=== PATIENT | male | born 1980 | race Caucasian/White ===

== ENCOUNTER 2017-03-07 08:09 | Emergency (ER) | payer OTHER ==
[~2017-03-07] VITALS: Ht 177.8 cm; Wt 77.1 kg
[~2017-03-07 08:09] MED LIST: BENADRYL25 MG PO; BENZONATATE200 M1 PO; CARAFATE1 G1 PO; CARAFATE1 GM/10 M1 PO; CARAFATE1 GM/10 ML PO; LEVSIN0.125 M1 PO; MEDROL4 M2 PO; PERCOCET 5-3251 EACH PO; PHENERGAN12.5 M2 RC; PRILOSEC20 M1 PO; PROMETHAZINE HC25 M3 PO; PROTONIX 40MG T40 MG PO; PROTONIX40 M3 PO; REGLAN10 M1 PO; TRAMADOL HCL50 M1 PO; TRAMADOL50 MG PO; VENTOLIN HFA18 GM INH; ZOFRAN ODT4 M1 PO; ZOFRAN ODT4 MG PO
--- NOTE | 2017-03-07 08:37 | ED GI/GU/ABDOMINAL COMPLAINT ---
History of Present Illness General Chief Complaint: Abdominal Pain/Flank Pain Stated Complaint: ABD PAIN,PER PT DIVERTICULITIS? Source: patient Exam Limitations: no limitations Vital Signs & Intake/Output Vital Signs & Intake/Output Vital Signs Date Time Temp Pulse Resp B/P B/P Pulse O2 O2 Flow FiO2 Mean Ox Delivery Rate 03/07 1156 98.8 72 16 110/59 96 Room Air 03/07 1025 97.0 82 20 109/63 97 Room Air 03/07 0814 96.8 73 18 126/78 99 Room Air Allergies Coded Allergies: codeine (Intermediate, RASH 12/27/15) venom-honey bee (BEE VENOM (HONEY BEE)) (Intermediate, SITE WHERE STUNG SWELLS 05/05/16) Reconcile Medications Albuterol Sulfate (Ventolin Hfa) 90 MCG HFA.AER.AD 2 PUF INH Q4-6 PRN PRN WHEEZING/SHORTNESS OF BREATH Benzonatate 200 MG CAPSULE 1 CAP PO TID PRN cough Hyoscyamine (Levsin) 0.125 MG TABLET 1 TAB PO Q4 PRN abdominal spasms Methylprednisolone. (Medrol) 4 MG TAB.DS.PK 1 DP PO AD breathing Metoclopramide HCl (Reglan) 10 MG TABLET 1 TAB PO 4 TIMES/DAY N/V (Reported) 30 minutes before meals and bedtime Omeprazole (Prilosec) 20 MG CAPSULE.DR 1 CAP PO DAILY GASTRITIS Ondansetron (Zofran Odt) 4 MG TAB.RAPDIS 2 TAB PO Q12H PRN N/V (Reported) Oxycodone HCl/Acetaminophen (Percocet 5-325 MG Tablet) 5 MG-325 MG TABLET 1 TAB PO TID PRN PAIN Promethazine HCl 25 MG TABLET 1 TAB PO Q6P PRN nausea Triage Note: 36 YO MALE TO TRIAGE C/O LLQ PAIN. STATES HASNT BEEN ABLE TO EAT SOLID FOOD SINCE SATURDAY D/T PAIN AND NAUSEA. STATES +NVD. HX OF GASTROPARESIS AND DIVERTICULITIS. Triage Nurses Notes Reviewed? yes Onset: Gradual Duration: day(s): (6) Timing: recent history Quality/Severity: sharpness, severe, vomiting Severity Numbers: 10 Location: left lower quadrant Radiation: no radiation Activities at Onset: none Prior Abdominal Problems: similar symptoms Past Sexual History: Unobtainable at this time No Modifying Factors: none HPI: Patient is a 36-year-old male with history of diverticulitis, gastroparesis presenting to the emergency department with chief complaint worsening left lower quadrant abdominal pain, nausea vomiting and diarrhea that been going on and off for the past 6 days. Patient reports several episodes of diarrhea yesterday, several episodes of dry heaving vasculitides worse this morning. Denies any blood in the stool or vomit. Positive tactile fevers and chills. No recent travel. Denies recent antibiotic use. Denies chest pain palpitations or shortness of breath. Reports that he sees a rac specialist but has not seen him in a while. Does not take anything daily to help with his gastroparesis, reports he needs to come to the emergency department when he has exacerbations. He does smoke 1-2 g of marijuana daily. Has been doing this for "a while". Pain is currently 10 out of 10 sharp and stabbing. Denies taking anything for pain prior to arrival as he didn't have anything at home to take. Past History Travel History Traveled to [place] past 21 day No Medical History Any Pertinent Medical History? 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 Hx Contributory? No Review of Systems Review of Systems Constitutional: Reports: chills, fever. Comments Review of systems: See HPI, All other systems negative. Constitutional, no weight loss HEENT: No visual changes no sore throat no congestion Cardiovascular: No chest pain ,palpitation , orthopnea or ankle swelling Skin, no jaundice no rashes Respiratory: No dyspnea cough sputum or hemoptysis GI: Positive nausea, vomiting, diarrhea : No dysuria No hematuria Muscle skeletal: no back pain, no neck pain, Neurologic: No numbness no confusion Psych: POS STRESS, DENIES CONFUSION Heme/endocrine: No bruising no bleeding no polyuria or polydipsia Immunology: No splenectomy or history of AIDS Physical Exam Physical Exam General Appearance: moderate distress Gastrointestinal: guarding, tenderness Comments: Well-developed well-nourished person in moderate distress HEENT: Pupils equally round and reactive to light and accommodation. Nose is atraumatic. External auditory canal and Tympanic membranes clear. Pharynx normal. No swelling or edema. Neck: Normal inspection Back: Nontender, no CVA tenderness. Full range of motion Cardiovascular: Regular rate and rhythms no murmurs rubs or gallops, normal JVP Respiratory: Chest nontender. No respiratory distress.breath sounds clear to auscultation bilaterally Abdomen: Soft, diffusely tender to palpation more focal tenderness to palpation in the left lower quadrant , positive guarding, no appreciable organomegaly. Normal bowel sounds. No ascites Extremity: No edema Neuro: Alert oriented x3 Skin: No appreciable rash on exposed skin, skin is warm and diaphoretic. Psych: Anxious, memory and judgment is normal. Core Measures ACS in differential dx? No Severe Sepsis Present: No Septic Shock Present: No Progress Differential Diagnosis: appendicitis, biliary colic, bowel obstruction, cholecystitis, diverticulitis, gastritis, pancreatitis, UTI/pyelo, DIVERTICULTIIS, PERF VISCOUS Plan of Care: Orders Procedure Date/time Status Add-on Test (ER Only) 03/07 0900 Active URINE DRUG SCREEN FOR ER ONLY 03/07 0845 Complete URINALYSIS 03/07 0845 Complete LIPASE 03/07 0845 Complete LACTIC ACID 03/07 0845 Complete COMPREHENSIVE METABOLIC PANEL 03/07 0845 Complete CBC WITHOUT DIFFERENTIAL 03/07 0845 Complete Laboratory Tests 03/07/17 1145: Lactic Acid Cancelled 03/07/17 1041: Urine Opiates Screen < 100.00, Methadone Screen < 40, Barbiturate Screen < 60, Ur Phencyclidine Scrn < 6.00, Amphetamines Screen < 100, U Benzodiazepines Scrn < 85, Urine Cocaine Screen < 50, Urine Cannabis Screen > 80.00 H, Urinalysis MANY H, Urine Color YEL, Urine Clarity CLDY H, Urine pH 8.5 H, Ur Specific [place] 1.010, Urine Protein 30 H, Urine Ketones 40 H, Urine Nitrite NEG, Urine Bilirubin NEG, Urine Urobilinogen 1.0, Ur Leukocyte Esterase NEG, Ur Microscopic SEDIMENT EXAMINED, Urine RBC RARE, Urine WBC RARE, Ur Epithelial Cells RARE, Urine Bacteria RARE H, Urine Hemoglobin NEG, Urine Glucose NEG 03/07/17 0903: Anion Gap 16, Estimated GFR > 60, BUN/Creatinine Ratio 17.5, Glucose 108 H, Lactic Acid 1.7, Calcium 10.2, Total Bilirubin 0.9, AST 23, ALT 28, Alkaline Phosphatase 120, Total Protein 7.6, Albumin 4.9, Globulin 2.7, Albumin/Globulin Ratio 1.8, Lipase 81, CBC w Diff MAN DIFF ORDERED, RBC 5.41, MCV 85.1, MCH 28.8, RDW 13.5, MPV 8.8, Gran % 78.6 H, Lymphocytes % 14.2 L, Monocytes % 4.2, Eosinophils % 2.0, Basophils % 1.0, Absolute Granulocytes 15.9 H, Absolute Lymphocytes 2.9, Absolute Monocytes 0.8 H, Absolute Eosinophils 0.4, Absolute Basophils 0.2, Normocytic RBCs VERIFIED, Normochromic RBCs VERIFIED, PUBS MCHC 33.8 Diagnostic Imaging: Viewed by Me: CT Scan. Discussed w/RAD: CT Scan. Radiology Impression: PATIENT: REJI OLVERA PRESENT AGE: 36 PATIENT ACCOUNT NO: [id number] : 82 LOCATION: [facility] ORDERING PHYSICIAN: WESLEY GUZMAN SERVICE DATE: 03/07/17 EXAM TYPE: CAT - CT ABD & PELVIS W IV CONTRAST EXAMINATION: CT ABDOMEN AND PELVIS WITH CONTRAST CLINICAL INFORMATION: Abdominal pain. Nausea. Vomiting. Rule out diverticulitis or viscus perforation. COMPARISON: CT abdomen and pelvis of 05/05, 01/24/2016. Limited abdominal ultrasound of 12/27/2015. TECHNIQUE: Multidetector volumetric imaging was performed of the abdomen and pelvis before and after the IV administration of 95 mL of Optiray 320 intravenous contrast. Sagittal and coronal reformatted images were obtained on the technologist's workstation. DLP: 275.36 mGy-cm FINDINGS: LUNG BASES: The visualized lung bases are unremarkable. LIVER, GALLBLADDER, AND BILIARY TREE: The liver is normal in size, shape, and attenuation. No focal hepatic lesion or biliary ductal dilatation is present. The gallbladder is unremarkable with no evidence of radiopaque gallstones, gallbladder wall thickening, or obvious pericholecystic inflammatory changes. PANCREAS: Unremarkable. SPLEEN: Unremarkable. ADRENAL GLANDS: Normal left adrenal gland. A 1.5 x 0.8 cm indeterminate right adrenal nodule is stable since previous CT of 01/24/2016. KIDNEYS AND URETERS: The kidneys are normal in size, shape, and attenuation. No hydronephrosis, hydroureter, or calculi seen. No perinephric stranding. BLADDER: Unremarkable. GASTROINTESTINAL TRACT: The stomach is partially distended and appears unremarkable. Small bowel loops are not dilated. An appendix is normal. Diffuse mild diverticulosis of the colon is noted without definite evidence of acute diverticulitis. PERITONEAL CAVITY: No evidence of free intraperitoneal air or fluid. No evidence of inflammatory changes or nodularity in the omentum and mesentery. ABDOMINAL WALL: No significant hernia is appreciated. LYMPH NODES: No pathologically enlarged lymph nodes are noted. VASCULAR: Unremarkable. PELVIC VISCERA: Unremarkable. OSSEOUS STRUCTURES: Unremarkable. IMPRESSION: 1. There is no evidence of free intraperitoneal air. 2. Diffuse diverticulosis of the colon without acute diverticulitis. 3. No acute or other significant abnormalities identified on the CT scan to explain patient's symptoms. 4. A 1.5 x 0.8 cm indeterminate right adrenal nodule is stable since previous CT of 01/24/2016. Dedicated adrenal gland CT may be considered for further evaluation. DICTATED BY : DWAYNE HEBERT MD DATE/TIME DICTATED:03/07/171058 MUD JACK NOZZLE WORKER:LORAINE DATE/TIME TRANSCRIBED:03/07/171058 CONFIDENTIAL, DO NOT COPY WITHOUT APPROPRIATE AUTHORIZATION. <Electronically signed in Other Vendor System> SIGNED BY: DWAYNE HEBERT MD 03/07/17 1154 Initial ED EKG: none Comments: Patient feeling much improved after IV fluids, Reglan and Ativan. No longer vomiting. Requesting fluids. Patient informed of all lab work results and imaging study results. Elevated white blood count is likely related to dry heaving. He'll follow up with GI. Patient nontoxic. Departure Departure Time of Disposition: 1158 Disposition: HOME OR SELF CARE Condition: Stable Clinical Impression Primary Impression: Abdominal pain Qualifiers: Abdominal location: unspecified location Qualified Code: R10.9 - Unspecified abdominal pain Secondary Impressions: Nausea and vomiting Qualifiers: Vomiting type: unspecified Vomiting Intractability: unspecified Qualified Code: R11.2 - Nausea with vomiting, unspecified Referrals: ANNAMARIA DALY,VALERY Lee (PCP/Family) JOSSY WHITT MD Additional Instructions: Follow-up with gastroenterology following a plan. Attaches her CAT scan report. Return for worsening symptoms or concerns. Take Levsin and Reglan as prescribed. PATIENT: REJI OLVERA PRESENT AGE: 36 PATIENT ACCOUNT NO: [id number] : 82 LOCATION: [facility] ORDERING PHYSICIAN: WESLEY GUZMAN SERVICE DATE: 03/07/17 EXAM TYPE: CAT - CT ABD & PELVIS W IV CONTRAST EXAMINATION: CT ABDOMEN AND PELVIS WITH CONTRAST CLINICAL INFORMATION: Abdominal pain. Nausea. Vomiting. Rule out diverticulitis or viscus perforation. COMPARISON: CT abdomen and pelvis of 05/05/2016, 01/24/2016. Limited abdominal ultrasound of 12/27/2015. TECHNIQUE: Multidetector volumetric imaging was performed of the abdomen and pelvis before and after the IV administration of 95 mL of Optiray 320 intravenous contrast. Sagittal and coronal reformatted images were obtained on the technologist's workstation. DLP: 275.36 mGy-cm FINDINGS: LUNG BASES: The visualized lung bases are unremarkable. LIVER, GALLBLADDER, AND BILIARY TREE: The liver is normal in size, shape, and attenuation. No focal hepatic lesion or biliary ductal dilatation is present. The gallbladder is unremarkable with no evidence of radiopaque gallstones, gallbladder wall thickening, or obvious pericholecystic inflammatory changes. PANCREAS: Unremarkable. SPLEEN: Unremarkable. ADRENAL GLANDS: Normal left adrenal gland. A 1.5 x 0.8 cm indeterminate right adrenal nodule is stable since previous CT of 01/24/2016. KIDNEYS AND URETERS: The kidneys are normal in size, shape, and attenuation. No hydronephrosis, hydroureter, or calculi seen. No perinephric stranding. BLADDER: Unremarkable. GASTROINTESTINAL TRACT: The stomach is partially distended and appears unremarkable. Small bowel loops are not dilated. An appendix is normal. Diffuse mild diverticulosis of the colon is noted without definite evidence of acute diverticulitis. PERITONEAL CAVITY: No evidence of free intraperitoneal air or fluid. No evidence of inflammatory changes or nodularity in the omentum and mesentery. ABDOMINAL WALL: No significant hernia is appreciated. LYMPH NODES: No pathologically enlarged lymph nodes are noted. VASCULAR: Unremarkable. PELVIC VISCERA: Unremarkable. OSSEOUS STRUCTURES: Unremarkable. IMPRESSION: 1. There is no evidence of free intraperitoneal air. 2. Diffuse diverticulosis of the colon without acute diverticulitis. 3. No acute or other significant abnormalities identified on the CT scan to explain patient's symptoms. 4. A 1.5 x 0.8 cm indeterminate right adrenal nodule is stable since previous CT of 01/24/2016. Dedicated adrenal gland CT may be considered for further evaluation. DICTATED BY: DWAYNE HEBERT MD DATE/TIME DICTATED:03/07/171058 MUD JACK NOZZLE WORKER:LORAINE DATE/TIME TRANSCRIBED:03/07/171058 CONFIDENTIAL, DO NOT COPY WITHOUT APPROPRIATE AUTHORIZATION. <Electronically signed in Other Vendor System> SIGNED BY: EMILEE TIWARI,ANAL 03/07/17 3443 Departure Forms: Customer Survey General Discharge Information Prescriptions: Current Visit Scripts Hyoscyamine (Levsin) 1 TAB PO Q4 PRN ABDOMINAL SPASMS #20 TAB Metoclopramide HCl (Reglan) 1 TAB PO 4 TIMES/DAY PRN NAUSEA #20 TAB 30 minutes before meals and bedtime
[2017-03-07 09:12] LABS: ABSOLUTE BASOPHIL COUNT 0.2 /CUMM (0.0-0.2); ABSOLUTE EOSINOPHIL COUNT 0.4 /CUMM (0.0-0.7); ABSOLUTE GRANULOCYTE CT 15.9 /CUMM (1.4-6.5); ABSOLUTE LYMPH COUNT 2.9 /CUMM (1.2-3.4); ABSOLUTE MONOCYTE COUNT 0.8 /CUMM (0.10-0.60); GRANULOCYTE % 78.6 % (42.2-75.2); MEAN CORPUSCULAR HGB 28.8 PG (27.0-31.0); MEAN CORPUSCULAR HGB CONC 33.8 G/DL (33.0-37.0); MEAN CORPUSCULAR VOLUME 85.1 FL (80.0-94.0); MEAN PLATELET VOLUME 8.8 FL (7.4-10.4); PLATELET COUNT 368 /CUMM (130-400); RBC DISTRIBUTION WIDTH 13.5 % (11.5-14.5); RED BLOOD CELL CT 5.41 /CUMM (4.70-6.10); WHITE BLOOD CELL COUNT 20.2 /CUMM (4.8-10.8)
--- NOTE | 2017-03-07 11:54 | CT SCAN REPORT ---
EXAMINATION: CT ABDOMEN AND PELVIS WITH CONTRAST CLINICAL INFORMATION: Abdominal pain. Nausea. Vomiting. Rule out diverticulitis or viscus perforation. COMPARISON: CT abdomen and pelvis of 05/05/2016, 01/24/2016. Limited abdominal ultrasound of 12/27/2015. TECHNIQUE: Multidetector volumetric imaging was performed of the abdomen and pelvis before and after the IV administration of 95 mL of Optiray 320 intravenous contrast. Sagittal and coronal reformatted images were obtained on the technologist's workstation. DLP: 275.36 mGy-cm FINDINGS: LUNG BASES: The visualized lung bases are unremarkable. LIVER, GALLBLADDER, AND BILIARY TREE: The liver is normal in size, shape, and attenuation. No focal hepatic lesion or biliary ductal dilatation is present. The gallbladder is unremarkable with no evidence of radiopaque gallstones, gallbladder wall thickening, or obvious pericholecystic inflammatory changes. PANCREAS: Unremarkable. SPLEEN: Unremarkable. ADRENAL GLANDS: Normal left adrenal gland. A 1.5 x 0.8 cm indeterminate right adrenal nodule is stable since previous CT of 01/24/2016. KIDNEYS AND URETERS: The kidneys are normal in size, shape, and attenuation. No hydronephrosis, hydroureter, or calculi seen. No perinephric stranding. BLADDER: Unremarkable. GASTROINTESTINAL TRACT: The stomach is partially distended and appears unremarkable. Small bowel loops are not dilated. An appendix is normal. Diffuse mild diverticulosis of the colon is noted without definite evidence of acute diverticulitis. PERITONEAL CAVITY: No evidence of free intraperitoneal air or fluid. No evidence of inflammatory changes or nodularity in the omentum and mesentery. ABDOMINAL WALL: No significant hernia is appreciated. LYMPH NODES: No pathologically enlarged lymph nodes are noted. VASCULAR: Unremarkable. PELVIC VISCERA: Unremarkable. OSSEOUS STRUCTURES: Unremarkable. IMPRESSION: 1. There is no evidence of free intraperitoneal air. 2. Diffuse diverticulosis of the colon without acute diverticulitis. 3. No acute or other significant abnormalities identified on the CT scan to explain patient's symptoms. 4. A 1.5 x 0.8 cm indeterminate right adrenal nodule is stable since previous CT of 01/24/2016. Dedicated adrenal gland CT may be considered for further evaluation.
[2017-03-07 11:56] VITALS: BP 110/59
[2017-03-07] MEDS ORDERED: LEVSIN0.125 M1 PO (11:59)
[2017-03-07] MEDS ORDERED: REGLAN10 M1 PO (11:59)
== END 2017-03-07 12:18 ==
LOC: ERH 08:09
PROVIDERS: Physician Assistant
DX: R11.2 Nausea with vomiting, unspecified (principal); R10.32 Left lower quadrant pain
CPT/HCPCS: 74177; 80307; 81001; 96374; 96375; J2765

== ENCOUNTER 2017-03-10 10:47 | Emergency (ER) | payer OTHER ==
--- NOTE | 2017-03-10 11:17 | ED GI/GU/ABDOMINAL COMPLAINT ---
History of Present Illness General Chief Complaint: Abdominal Pain/Flank Pain Stated Complaint: ABD PAIN Source: patient, family, old records Exam Limitations: no limitations Vital Signs & Intake/Output Vital Signs & Intake/Output Vital Signs Date Time Temp Pulse Resp B/P B/P Pulse O2 O2 Flow FiO2 Mean Ox Delivery Rate 03/10 1343 98.2 68 18 116/56 98 Room Air 03/10 1100 98.8 76 16 133/70 96 Room Air Allergies Coded Allergies: codeine (Intermediate, RASH 12/27/15) venom-honey bee (BEE VENOM (HONEY BEE)) (Intermediate, SITE WHERE STUNG SWELLS 05/05/16) Reconcile Medications Hyoscyamine (Levsin) 0.125 MG TABLET 1 TAB PO Q4 PRN ABDOMINAL SPASMS Lorazepam (Ativan) 1 MG TABLET 1 TAB PO BID anxiety Metoclopramide HCl (Reglan) 10 MG TABLET 1 TAB PO 4 TIMES/DAY PRN NAUSEA 30 minutes before meals and bedtime Ondansetron (Zofran Odt) 4 MG TAB.RAPDIS 1 TAB SL TID PRN nausea Triage Note: PT TO TRIAGE C/O ABD PAIN THIS MORNING. STATES HE HAS A HX OF DIVERTICULITIS AND GASTROPARESIS. STATES HE WAS HERE A FEW DAYS AGO FOR THE SAME, FELT BETTER AND PAIN WORSE AGAIN TODAY. Triage Nurses Notes Reviewed? yes Onset: Abrupt Duration: week(s): (1), constant Timing: recent history Quality/Severity: aching, moderate, sharpness, throbbing Severity Numbers: 10 Location: generalized abdomen Radiation: LLQ Activities at Onset: none Prior Abdominal Problems: similar symptoms No Modifying Factors: none Associated Symptoms: nausea/vomiting HPI: 36-year-old male with history of diverticulitis gastroparesis presents to ER for evaluation complaining of progressively worsening diffuse however worse to left lower quadrant all pain nausea vomiting has been going on and off for the past 1 week. He was seen in this ER 3 days ago for the same. He had an unremarkable workup including CAT scan at the time however his lab revealed an elevated white blood cell count. Denies any fevers or chills he had a bowel movement this morning that was normal. He was sent home with Levsin and nausea medicines which she states she's been taking without improvement. No hematemesis. No black or bloody stools no chest pain or shortness of breath no fevers. He smokes marijuana daily he denies alcohol or other drug use. Patient reports history of similar episodes in the past for many years. He has never been told to cause of his gastroparesis. No history of abdominal surgeries in the past. Pain is currently 10 out of 10 sharp and stabbing. (LUPE WESTBROOK) Past History Travel History Traveled to [place] past 21 day No Medical History Any Pertinent Medical History? see below for history Neurological: NONE EENT: NONE Cardiovascular: NONE Respiratory: NONE Gastrointestinal: GERD, GASTROPARESIS DIVERTICULOSIS DIVERTICULOSIS Hepatic: NONE Renal: NONE Musculoskeletal: NONE Psychiatric: NONE Endocrine: NONE Blood Disorders: NONE Cancer(s): NONE BLUNGER/Reproductive: NONE History of MRSA: No History of VRE: No History of CDIFF: No Surgical History Surgical History: ORAL SURGERY Psychosocial History What is your primary language Belarusian Tobacco Use: Never used Family History Family History, If Any: MOTHER (DIVERTICULOSIS). Hx Contributory? No (LUPE WESTBROOK) Review of Systems Review of Systems Constitutional: Reports: see HPI. All Other Systems: Reviewed and Negative Comments Review of systems: See HPI, All other systems negative. Constitutional, no chills no fever, no malaise HEENT: No visual changes no sore throat no congestion, no ear pain Cardiovascular: No chest pain , no palpitation , no orthopnea Skin: no rashes, no change in skin Respiratory: No dyspnea no cough no sputum no hemoptysis GI: nausea vomiting, no bloating/constipation : No dysuria No hematuria, no frequency, Muscle skeletal: No joint pain,, no back pain, no neck pain, Neurologic: no headache Psych: No stress Heme/endocrine: No bruising Immunology: No lymphadenopathy (LUPE WESTBROOK) Physical Exam Physical Exam General Appearance: well developed/nourished, alert, awake Gastrointestinal: tenderness Comments: Well-developed well-nourished person in no acute distress HEENT: Normal EENT exam; PERRL, EOMI, HEAD is atraumatic. moist mucous membranes. Neck: Supple, normal range of motion Back: Nontender, no CVA tenderness. Full range of motion Cardiovascular: Regular rate and rhythms no murmurs rubs Respiratory: Chest nontender.There were no bony deformities, no asymmetry. No respiratory distress. Patient speaking in full complete sentences. Breath sounds clear to auscultation bilaterally: NO W/R/R Abdomen: Soft, diffusely tender nondistended, no appreciable organomegaly. Normal bowel sounds. No rebound/guarding, No appreciable enlargement of the abdominal aorta, No ascites. Extremity: No edema, full range of motion of extremities, Neuro: Alert oriented x3, motor sensory normal,. There were no obvious focal neurologic abnormalities. Skin: No appreciable rash on exposed skin, skin is warm and dry. Psych: Mood and affect is normal, memory and judgment is normal. Core Measures ACS in differential dx? No Severe Sepsis Present: No Septic Shock Present: No (JANICE GUZMAN,LUPE) Progress Differential Diagnosis: appendicitis, biliary colic, bowel obstruction, colon cancer, cholecystitis, diverticulitis, gastritis, hepatitis, hernia, ischemic bowel, inflamm bowel dis, pancreatitis, peptic ulcer, PUD/GERD, perforated viscous, SBO, GASTROPARESIS Plan of Care: Orders Procedure Date/time Status LIPASE 03/10 1123 Complete LACTIC ACID 03/10 112 Complete COMPREHENSIVE METABOLIC PANEL 03/10 112 Complete CBC WITHOUT DIFFERENTIAL 03/10 1123 Complete AMYLASE 03/10 1123 Complete Laboratory Tests 03/10/17 1423: Lactic Acid Cancelled 03/10/17 1129: Anion Gap 14, Estimated GFR > 60, BUN/Creatinine Ratio 12.9, Glucose 107 H, Lactic Acid 1.7, Calcium 9.5, Total Bilirubin 0.6, AST 19, ALT 29, Alkaline Phosphatase 103, Total Protein 6.9, Albumin 4.4, Globulin 2.5, Albumin/Globulin Ratio 1.8, Amylase 68, Lipase 44, CBC w Diff MAN DIFF ORDERED, RBC 5.15, MCV 86.3, MCH 29.3, RDW 13.9, MPV 9.3, Gran % 80.0 H, Lymphocytes % 13.2 L, Monocytes % 5.7, Eosinophils % 0.7, Basophils % 0.4, Absolute Granulocytes 15.2 H, Absolute Lymphocytes 2.5, Absolute Monocytes 1.1 H, Absolute Eosinophils 0.1 , Absolute Basophils 0.1, Platelet Estimate VERIFIED BY SMEAR, Normocytic RBCs VERIFIED, Normochromic RBCs VERIFIED, PUBS MCHC 34.0 Labs ordered old records reviewed including patient's previous blood work patient chronically has an elevated white blood cell count dating back to January 2016. CAT scan reviewed case discussed with Dr. Meyers medicated with Ativan 1 Reglan 10 Zofran 4 IV fluids I discussed with patient later on his lab results and x-ray results. He's had no further episodes of nausea vomiting after being medicated 2 L of fluids Zofran and Reglan and Ativan reports to feeling improved denies pain. Discussed with him return precautions A for close follow-up with primary care as well as GI this week. Advised return to ER anytime sooner with any concerns they feel comfortable plan he is tolerating clear liquids here in ER. ct from previous visit IMPRESSION: 1. There is no evidence of free intraperitoneal air. 2. Diffuse diverticulosis of the colon without acute diverticulitis. 3. No acute or other significant abnormalities identified on the CT scan to explain patient's symptoms. 4. A 1.5 x 0.8 cm indeterminate right adrenal nodule is stable since previous CT of 01/24/2016. Dedicated adrenal gland CT may be considered for further evaluation. DICTATED BY: DWAYNE HEBERT MD DATE/TIME DICTATED:03/07/171058 VICE PRESIDENT OF INSTRUCTION:LORAINE DATE/TIME TRANSCRIBED:03/07/171058 (LUPE WESTBROOK) Diagnostic Imaging: Viewed by Me: Radiology Read. Discussed w/RAD: Radiology Read. Radiology Impression: PATIENT: REJI OLVERA PRESENT AGE: 36 PATIENT ACCOUNT NO: [id number] : 82 LOCATION: [facility] ORDERING PHYSICIAN: LUPE GUZMAN SERVICE DATE: 03/10/171143 EXAM TYPE: RAD - [id number] VIEWS EXAMINATION: ABDOMEN 2 VIEWS CLINICAL INFORMATION: Diffuse abdominal pain. COMPARISON: 03/07/2017. TECHNIQUE: Supine and upright views of the abdomen are provided. FINDINGS: There are no dilated loops of small bowel. There are no air-fluid levels. There is no appendicolith. The visualized lung bases are clear. The osseous structures are unremarkable. IMPRESSION: Unremarkable bowel gas pattern. DICTATED BY: ENA HANLEY MD DATE/ TIME DICTATED:03/10/171210 VICE PRESIDENT OF INSTRUCTION:LORAINE DATE/TIME TRANSCRIBED: 03/10/171210 CONFIDENTIAL, DO NOT COPY WITHOUT APPROPRIATE AUTHORIZATION. < Electronically signed in Other Vendor System> SIGNED BY: ENA HANLEY MD 03/10/171218 Initial ED EKG: none (LUPE WESTBROOK) Departure Departure Time of Disposition: 1333 Disposition: HOME OR SELF CARE Condition: Stable Clinical Impression Primary Impression: Nausea & vomiting Referrals: ANNAMARIA ALMEIDA-GEOVANNI,VALERY Lee (PCP/Family) ASHLEE TIWARI,KERRY Winkler Additional Instructions: Follow-up with your primary care physician as well as daycare manager Dr. linder this week. Zofran for nausea Ativan as discussed these were sent to [facility] pharmacy [facility]. Clear liquids advance diet as tolerated return to ER anytime for concerns Departure Forms: Customer Survey General Discharge Information Prescriptions: Current Visit Scripts Lorazepam (Ativan) 1 TAB PO BID #10 TAB Ondansetron (Zofran Odt) 1 TAB SL TID PRN nausea #10 TAB (LUPE WESBTROOK) PA/SUPERVISOR SHIPPING ROOM Co-Sign Statement Statement: ED Attending supervision documentation- [] I saw and evaluated the patient. I have also reviewed all the pertinent lab results and diagnostic results. I agree with the findings and the plan of care as documented in the PA's/SUPERVISOR SHIPPING ROOM's documentation. [X] I have reviewed the ED Record and agree with the PA's/SUPERVISOR SHIPPING ROOM's documentation. [] Additions or exceptions (if any) to the PAs/SUPERVISOR SHIPPING ROOM's note and plan are summarized below: [] (JULIÁN TIWARI,BILLY Verduzco)
[2017-03-10 11:49] LABS: ABSOLUTE BASOPHIL COUNT 0.1 /CUMM (0.0-0.2); ABSOLUTE EOSINOPHIL COUNT 0.1 /CUMM (0.0-0.7); ABSOLUTE GRANULOCYTE CT 15.2 /CUMM (1.4-6.5); ABSOLUTE LYMPH COUNT 2.5 /CUMM (1.2-3.4); ABSOLUTE MONOCYTE COUNT 1.1 /CUMM (0.10-0.60); BASOPHIL % 0.4 % (0.0-2.0); EOSINOPHIL % 0.7 % (0-5); HEMATOCRIT 44.4 % (42-52); MEAN CORPUSCULAR HGB 29.3 PG (27.0-31.0); MEAN CORPUSCULAR VOLUME 86.3 FL (80.0-94.0); MEAN PLATELET VOLUME 9.3 FL (7.4-10.4); PLATELET COUNT 325 /CUMM (130-400); RBC DISTRIBUTION WIDTH 13.9 % (11.5-14.5); RED BLOOD CELL CT 5.15 /CUMM (4.70-6.10)
--- NOTE | 2017-03-10 12:19 | RADIOLOGY REPORT ---
EXAMINATION: ABDOMEN 2 VIEWS CLINICAL INFORMATION: Diffuse abdominal pain. COMPARISON: 03/07/2017. TECHNIQUE: Supine and upright views of the abdomen are provided. FINDINGS: There are no dilated loops of small bowel. There are no air-fluid levels. There is no appendicolith. The visualized lung bases are clear. The osseous structures are unremarkable. IMPRESSION: Unremarkable bowel gas pattern.
[2017-03-10] MEDS ORDERED: ZOFRAN ODT4 M1 SL (13:35)
[2017-03-10] MEDS ORDERED: ATIVAN1 M1 PO (13:35)
[2017-03-10 13:43] VITALS: BP 116/56
== END 2017-03-10 13:45 ==
LOC: ERH 10:47
PROVIDERS: Physician Assistant Medical
DX: R11.2 Nausea with vomiting, unspecified (principal)
CPT/HCPCS: 74020; 96374; 96375; J2405; J2765

== ENCOUNTER 2017-11-30 09:47 | Inpatient (IN) | payer OTHER ==
[~2017-11-30] VITALS: Ht 175.3 cm; Wt 76.2 kg
[~2017-11-30 09:47] MED LIST changes: +ATIVAN0.5 M1 PO; +ATIVAN1 M1 PO; +LEVSIN-SL0.125 MG SL; +PROMETHAZINE HC25 M2 PR; +ZOFRAN ODT4 M1 SL; +ZOFRAN4 M2 PO
--- NOTE | 2017-11-30 09:53 | ED GI/GU/ABDOMINAL COMPLAINT ---
History of Present Illness General Chief Complaint: Abdominal Pain/Flank Pain Stated Complaint: BIBA ABD PAIN, +V, FLARE UP OF GASTROPERESIS Source: patient Exam Limitations: no limitations Vital Signs & Intake/Output Vital Signs & Intake/Output Vital Signs Date Time Temp Pulse Resp B/P B/P Pulse O2 O2 Flow FiO2 Mean Ox Delivery Rate 11/30 1345 97.8 73 18 122/80 98 Room Air 11/30 1136 98.7 99 17 122/78 99 Room Air 11/30 0958 97.0 88 20 124/82 100 Room Air Allergies Coded Allergies: codeine (Intermediate, RASH 12/27/15) venom-honey bee (BEE VENOM (HONEY BEE)) (Intermediate, SITE WHERE STUNG SWELLS 05/05/16) Reconcile Medications Hyoscyamine Sulfate (Levsin-Sl) 0.125 MG TAB.SUBL 1-2 TAB SL Q4P PRN abdominal pain Lorazepam (Ativan) 0.5 MG TABLET 1 TAB PO BIDP PRN Abdominal pain Metoclopramide HCl (Reglan) 10 MG TABLET 1 TAB PO 4 TIMES/DAY PRN nausea vomiting 30 minutes before meals and bedtime Metoclopramide HCl (Reglan) 10 MG TABLET 1 TAB PO 4 TIMES/DAY PRN NAUSEA Ondansetron (Zofran Odt) 4 MG TAB.RAPDIS 1 TAB PO PRN NAUSEA (Reported) Ondansetron (Zofran Odt) 4 MG TAB.RAPDIS 1 TAB SL TID PRN NAUSEA Ondansetron HCl (Zofran) 4 MG TABLET 1 TAB PO Q6-8P PRN NAUSEA Oxycodone HCl/Acetaminophen (Percocet 5-325 MG Tablet) 5 MG-325 MG TABLET 1 TAB PO 4XDP PRN PAIN six...[id number] Promethazine HCl 25 MG SUPP.RECT 1 SUPP NJ TID PRN VOMITING Triage Nurses Notes Reviewed? yes Onset: Abrupt Duration: day(s): Timing: remote history Quality/Severity: moderate, sharpness, severe Location: generalized abdomen Radiation: no radiation Activities at Onset: none Prior Abdominal Problems: none No Modifying Factors: none HPI: 36-year-old male comes into the emergency room for evaluation of abdominal pain. Patient has associated nausea vomiting. He reports a history of gastroparesis. Patient was seen here yesterday. He reports worsening symptoms at home. Progressive vomiting. Denies any other system symptoms. (Emiliano Edmonds) Past History Travel History Traveled to [place] past 21 day No Medical History Any Pertinent Medical History? 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 Hx Contributory? No (Emiliano Edmonds) Review of Systems Review of Systems Constitutional: Reports: see HPI. EENTM: Reports: no symptoms. Respiratory: Reports: no symptoms. Cardiovascular: Reports: no symptoms. GI: Reports: see HPI. Genitourinary: Reports: no symptoms. Musculoskeletal: Reports: no symptoms. Skin: Reports: no symptoms. Neurological/Psychological: Reports: no symptoms. Hematologic/Endocrine: Reports: no symptoms. Immunologic/Allergic: Reports: no symptoms. All Other Systems: Reviewed and Negative (Emiliano Edmonds) Physical Exam Physical Exam General Appearance: well developed/nourished, alert, awake Head: atraumatic, normal appearance Eyes: Bilateral: normal appearance, EOMI. Ears, Nose, Throat, Mouth: hearing grossly normal, moist mucous membrane Neck: normal inspection Respiratory: normal breath sounds, no respiratory distress Cardiovascular: regular rate/rhythm Gastrointestinal: soft, tenderness, decreased bowel sounds Back: normal inspection Extremities: normal range of motion Neurologic/Psych: awake, alert, oriented x 3, normal gait, normal mood/affect Skin: intact, normal color Core Measures ACS in differential dx? No Sepsis Present: No Sepsis Focused Exam Completed? No (Emiliano Edmonds) Progress Differential Diagnosis: biliary colic, bowel obstruction, diverticulitis, gastritis, SBO, gastroparesis Plan of Care: Orders Procedure Date/time Status LACTIC ACID 11/30 1646 Active ED Holding Orders 11/30 1418 Active Admit to inpatient 11/30 1418 Active Add-on Test (ER Only) 11/30 1418 Active Vital Signs 11/30 1418 Active LACTIC ACID 11/30 1418 Active Code Status 11/30 1418 Active LACTIC ACID 11/30 1000 Active URINE DRUGS OF ABUSE 11/30 0858 Complete LIPASE 11/30 950 Active COMPREHENSIVE METABOLIC PANEL 11/30 950 Active CBC WITHOUT DIFFERENTIAL 11/30 950 Complete Laboratory Tests 11/30/17 1346: Lactic Acid Cancelled 11/30/17 1243: Urine Opiates Screen < 100.00, Methadone Screen < 40, Barbiturate Screen < 60, Ur Phencyclidine Scrn < 6.00, Amphetamines Screen < 100, U Benzodiazepines Scrn < 85, Urine Cocaine Screen < 50, Urine Cannabis Screen > 80.00 H 11/30/17 1000: Anion Gap 16, Estimated GFR > 60, BUN/Creatinine Ratio 15.7, Glucose 118 H, Lactic Acid Pending, Calcium 10.1, Total Bilirubin 0.5, AST 21, ALT 35, Alkaline Phosphatase 120, Total Protein 7.5, Albumin 4.9, Globulin 2.6, Albumin/Globulin Ratio 1.9, Lipase 110, CBC w Diff MAN DIFF ORDERED, RBC 5.35, MCV 84.6, MCH 27.8 , MCHC 32.9 L, RDW 13.9, MPV 8.5, Gran % 81.4 H, Lymphocytes % 13.5 L, Monocytes % 3.6, Eosinophils % 0.9, Basophils % 0.6, Absolute Granulocytes 16.8 H, Absolute Lymphocytes 2.8, Absolute Monocytes 0.7 H, Absolute Eosinophils 0.2 , Absolute Basophils 0.1, Platelet Estimate ADEQUATE, Normocytic RBCs VERIFIED, Normochromic RBCs VERIFIED Diagnostic Imaging: Viewed by Me: CT Scan. Discussed w/RAD: CT Scan. Radiology Impression: PATIENT: REJI OLVERA PRESENT AGE: 36 PATIENT ACCOUNT NO: [id number] : 82 LOCATION: [facility] ORDERING PHYSICIAN: Emiliano GUZMAN SERVICE DATE: 11/30/17 EXAM TYPE : CAT - CT ABD & PELVIS W IV CONTRAST EXAMINATION: CT ABDOMEN AND PELVIS WITH CONTRAST CLINICAL INFORMATION: Elevated white count with diffuse abdominal pain. COMPARISON: Abdominal CT 04/27/2017. TECHNIQUE: Multidetector volumetric imaging was performed of the abdomen and pelvis following IV administration of 80 mL of Optiray 320 intravenous contrast. Sagittal and coronal reformatted images were obtained on the technologist's workstation. FINDINGS: The lung bases are clear. The liver, spleen, adrenal glands, gallbladder, and pancreas are normal. The decompressed, portions of the colon including the transverse colon, descending colon, and sigmoid colon appear thick-walled with mild adjacent stranding suggesting underlying colitis. Several small bowel loops also appear slightly thick-walled. There are a few scattered colonic diverticula. The appendix is normal. There is no free air and there is no intra-abdominal free fluid. No mesenteric or retroperitoneal adenopathy. The pelvic viscera are normal. No pelvic adenopathy. No free fluid within the pelvis. There are no acute osseous abnormalities. No significant soft tissue abnormality. IMPRESSION: Imaging findings are most suggestive of an underlying infectious or inflammatory colitis. There may be an enteritis as well. There is no bowel obstruction and there is no free air. The appendix is normal. DICTATED BY: Nate Guajardo MD DATE/TIME DICTATED:11/30/171247 RAILROAD SIGNAL AND SWITCH OPERATOR:LORAINE DATE/TIME TRANSCRIBED:11/30/171247 CONFIDENTIAL, DO NOT COPY WITHOUT APPROPRIATE AUTHORIZATION. <Electronically signed in Other Vendor System> SIGNED BY: Nate Guajardo MD 11/30/17 1258 Initial ED EKG: none (Emiliano Edmonds) Departure Departure Disposition: STILL A PATIENT Condition: Stable Clinical Impression Primary Impression: Colitis Secondary Impressions: Dehydration, Gastroparesis, Leukocytosis Referrals: Carolann DALY,Stalin Lee (PCP/Family) Departure Forms: Customer Survey General Discharge Information Admission Note Spoke With: Jeff TIWARI,Rosa Documentation of Exam: Documentation of any treatments & extenuating circumstances including Concerns Regarding Discharge (functional status, medication knowledge or non-compliance, living conditions, etc.) that warrant an admission rather than observation: Patient will require IV fluids. IV antiemetics. Patient has failed outpatient treatment with oral medications. Patient has diffuse inflammation of colon. GI consultation. Stool sample. Patient is still symptomatic here vomiting in the ER despite medications. (Emiliano Edmonds) PA/THERAPEUTIC MASSAGE TECHNICIAN Co-Sign Statement Statement: ED Attending supervision documentation- [X] I saw and evaluated the patient. I have also reviewed all the pertinent lab results and diagnostic results. I agree with the findings and the plan of care as documented in the PA's/THERAPEUTIC MASSAGE TECHNICIAN's documentation. [X] I have reviewed the ED Record and agree with the PA's/THERAPEUTIC MASSAGE TECHNICIAN's documentation. [] Additions or exceptions (if any) to the PAs/THERAPEUTIC MASSAGE TECHNICIAN's note and plan are summarized below: [] (Mary TIWARI,Lena)
[2017-11-30 10:15] LABS: ABSOLUTE BASOPHIL COUNT 0.1 /CUMM (0.0-0.2); ABSOLUTE EOSINOPHIL COUNT 0.2 /CUMM (0.0-0.7); ABSOLUTE GRANULOCYTE CT 16.8 /CUMM (1.4-6.5); ABSOLUTE LYMPH COUNT 2.8 /CUMM (1.2-3.4); ABSOLUTE MONOCYTE COUNT 0.7 /CUMM (0.10-0.60); BASOPHIL % 0.6 % (0.0-2.0); EOSINOPHIL % 0.9 % (0-5); GRANULOCYTE % 81.4 % (42.2-75.2); HEMATOCRIT 45.3 % (42-52); MEAN CORPUSCULAR HGB 27.8 PG (27.0-31.0); MEAN CORPUSCULAR HGB CONC 32.9 G/DL (33.0-37.0); MEAN CORPUSCULAR VOLUME 84.6 FL (80.0-94.0); MEAN PLATELET VOLUME 8.5 FL (7.4-10.4); PLATELET COUNT 388 /CUMM (130-400); RBC DISTRIBUTION WIDTH 13.9 % (11.5-14.5); RED BLOOD CELL CT 5.35 /CUMM (4.70-6.10); WHITE BLOOD CELL COUNT 20.7 /CUMM (4.8-10.8)
--- NOTE | 2017-11-30 12:59 | CT SCAN REPORT ---
EXAMINATION: CT ABDOMEN AND PELVIS WITH CONTRAST CLINICAL INFORMATION: Elevated white count with diffuse abdominal pain. COMPARISON: Abdominal CT 04/27/2017. TECHNIQUE: Multidetector volumetric imaging was performed of the abdomen and pelvis following IV administration of 80 mL of Optiray 320 intravenous contrast. Sagittal and coronal reformatted images were obtained on the technologist's workstation. FINDINGS: The lung bases are clear. The liver, spleen, adrenal glands, gallbladder, and pancreas are normal. The decompressed, portions of the colon including the transverse colon, descending colon, and sigmoid colon appear thick-walled with mild adjacent stranding suggesting underlying colitis. Several small bowel loops also appear slightly thick-walled. There are a few scattered colonic diverticula. The appendix is normal. There is no free air and there is no intra-abdominal free fluid. No mesenteric or retroperitoneal adenopathy. The pelvic viscera are normal. No pelvic adenopathy. No free fluid within the pelvis. There are no acute osseous abnormalities. No significant soft tissue abnormality. IMPRESSION: Imaging findings are most suggestive of an underlying infectious or inflammatory colitis. There may be an enteritis as well. There is no bowel obstruction and there is no free air. The appendix is normal.
--- NOTE | 2017-11-30 14:24 | History & Physical ---
General Information and HPI MD Statement: I have seen and personally examined REJI OLVERA and documented this H&P. The patient is a 36 year old M who presented with a patient stated chief complaint of [abdominal pain, nausea, and vomiting]. Source of Information: patient, family, old records Exam Limitations: Celestino is in distress because of pain and nausea History of Present Illness: 36-year-old male with a PMH of GERD, diverticulosis, cannabis use and gastroparesis who presented to the ED with recurrent nausea, intractable vomiting, epigastric abdominal pain that started when he was 28-year-old. The symptoms are intermittent with relapse and admission features. The patient reports that he can go symptom free. Episodes happen if days 4 weeks and sometime months. The episode is mainly nausea, nonbloody vomiting, epigastric abdominal pain, and abnormal bowel movement ranging from diarrhea to constipation. During the last 2 days his symptom got worse. He reports pain is colicky, nonradiating, 10/10, continuous, epigastric pain. Aggravated by eating and nothing seems to relieve it. The patient reported 10 nonbloody vomiting episode since the morning. Patient was admitted in 2016 for the same exact presentation, colonoscopy and upper endoscopy was done and relieved diverticulosis and internal hemorrhoids. The patient denies history of bloody bowel movements, sick contact, recent travel, similar symptom in close contacts. He denies fever, chills, chest pain, shortness breath or palpitation. Allergies/Medications Allergies: Coded Allergies: codeine (Intermediate, RASH 12/27/15) venom-honey bee (BEE VENOM (HONEY BEE)) (Intermediate, SITE WHERE STUNG SWELLS 05/05/16) Home Med list Dicyclomine HCl 10 MG CAPSULE 1 CAP PO TID GI (Reported) Metoclopramide HCl (Reglan) 10 MG TABLET 1 TAB PO 4 TIMES/DAY PRN NAUSEA Ondansetron HCl (Zofran) 4 MG TABLET 1 TAB PO Q6-8P PRN NAUSEA Past History Travel History Traveled to [place] past 21 day No Medical History Neurological: NONE EENT: NONE Cardiovascular: NONE Respiratory: NONE Gastrointestinal: GERD, GASTROPARESIS DIVERTICULOSIS DIVERTICULOSIS Hepatic: NONE Renal: NONE Musculoskeletal: NONE Psychiatric: anxiety Endocrine: NONE Blood Disorders: NONE Cancer(s): 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 Psychosocial History ETOH Use: denies use Illicit Drug Use: denies illicit drug use Functional Ability ADLs Independent: dressing, eating, toileting, bathing. Ambulation: independent IADLs Independent: shopping, housework, finances, food prep, telephone, transportation , medication admin. Review of Systems Review of Systems Constitutional: Reports: see HPI. Exam & Diagnostic Data Last 24 Hrs of Vital Signs/I&O Vital Signs Date Time Temp Pulse Resp B/P B/P Pulse O2 O2 Flow FiO2 Mean Ox Delivery Rate 11/30 1345 97.8 73 18 122/80 98 Room Air 11/30 1136 98.7 99 17 122/78 99 Room Air 11/30 0958 97.0 88 20 124/82 100 Room Air Intake & Output 11/30 1600 11/30 0800 11/30 0000 Intake Total 1000 Output Total Balance 1000 Intake, IV 1000 Patient 72.575 kg Weight Weight Reported by Patient Measurement Method Physical Exam General Appearance Alert, Oriented X3, Cooperative, Moderate Distress Skin No Rashes HEENT Atraumatic, PERRLA, EOMI, Dry MM Neck No JVD Cardiovascular Regular Rate, Normal S1, Normal S2, No Murmurs Lungs Clear to Auscultation, Normal Air Movement Abdomen LUQ and LLQ tenderness, ND Neurological Normal Speech Extremities No Clubbing, No Cyanosis, No Edema Last 24 Hrs of Labs/Tai: Laboratory Tests 11/30/17 1515: Lactic Acid 0.7 11/30/17 1346: Lactic Acid Cancelled 11/30/17 1243: Urine Opiates Screen < 100.00, Methadone Screen < 40, Barbiturate Screen < 60, Ur Phencyclidine Scrn < 6.00, Amphetamines Screen < 100, U Benzodiazepines Scrn < 85, Urine Cocaine Screen < 50, Urine Cannabis Screen > 80.00 H 11/30/17 1000: Anion Gap 16, Estimated GFR > 60, BUN/Creatinine Ratio 15.7, Glucose 118 H, Lactic Acid 2.3 H, Calcium 10.1, Total Bilirubin 0.5, AST 21, ALT 35, Alkaline Phosphatase 120, Total Protein 7.5, Albumin 4.9, Globulin 2.6, Albumin/Globulin Ratio 1.9, Lipase 110, CBC w Diff MAN DIFF ORDERED, RBC 5.35, MCV 84.6, MCH 27.8 , MCHC 32.9 L, RDW 13.9, MPV 8.5, Gran % 81.4 H, Lymphocytes % 13.5 L, Monocytes % 3.6, Eosinophils % 0.9, Basophils % 0.6, Absolute Granulocytes 16.8 H, Absolute Lymphocytes 2.8, Absolute Monocytes 0.7 H, Absolute Eosinophils 0.2 , Absolute Basophils 0.1, Platelet Estimate ADEQUATE, Normocytic RBCs VERIFIED, Normochromic RBCs VERIFIED Microbiology 11/30 1500 STOOL: Cryptosporidium Antigen - COLB 11/30 1500 STOOL: Giardia Antigen (TAI) - COLB 11/30 1500 STOOL: Clostridium difficile Toxin A & B - COLB 11/30 1500 STOOL: Stool Culture - COLB Assessment/Plan Assessment: 39-year-old male with a long history of intermittent abdominal pain, nausea, vomiting, and diarrhea. CT abdomen suggestive of infection or inflammatory colitis. Patient was previously diagnosed cannabinoid hyperemesis syndrome. She also diagnosed previously with gastroparesis. Given the long intermittent feature of his symptom inflammatory bowel disease as a possible explanation. The patient has a chronic leukocytosis. Urine toxicology showed cannabis. #Abdominal pain, nausea, and vomiting * We will admit to the general medicine floor * Patient will be nothing by mouth * We will hydrate with IV fluids * We will use antiemetic medication as necessary * We will send for C. difficile * We will send for stool culture/parasite * We will continue home dose of Ativan * We will consult GI DVT PPX with Lovenox Nothing by mouth Full code As Ranked By This Provider Problem List: 1. GERD (gastroesophageal reflux disease) 2. Dehydration 3. Nausea and vomiting in adult patient Core Measures/Misc (07/07) Acute Coronary Syndrome ACS Diagnosis: No Congestive Heart Failure Congestive Heart Failure Diagnosis No Cerebrovascular Accident CVA/TIA Diagnosis: No VTE (View Protocol) VTE Risk Factors Acute Medical Illness No Mechanical VTE Prophylaxis d/t N/A MechProphylax Ordered No VTE Pharm Prophylaxis d/t NA PharmProphylax ordered Sepsis (View protocol) Sepsis Present: No
[2017-11-30] MEDS ORDERED: DICYCLOMINE HCL10 M1 PO (16:02)
--- NOTE | 2017-11-30 16:19 | PN- Att Addend ---
Attending Addendum Attending Brief Note 36 y/o M with pmh sig for mild gastroparesis (based on gastric emptying study), GERD, erosive gastritis on EGD (03/05) and diverticulosis (noted on colonoscopy ) presented with intractable nausea vomiting and abdominal pain. He also has soft bowel movement but only had 2 BMs today. Patient claims that he has these symptoms off and on for a number of years. Reviewing his past records it was obvious that he was using cannabis and there was a thought that all of his symptoms could be related to cannabis induced hyper emesis. The acuity of symptoms started the last day or so. He claims that since this morning he had vomiting 10 times. He denies any hematemesis, any coughing or emesis. He denies any bright blood per rectum or melanotic stool. Patient did not provide a detailed history and only answered my questions in 1 or 2 words. Denies any sick contacts, travel or eating out. Vital Signs Date Time Temp Pulse Resp B/P B/P Pulse O2 O2 Flow FiO2 Mean Ox Delivery Rate 11/30 1345 97.8 73 18 122/80 98 Room Air 11/30 1136 98.7 99 17 122/78 99 Room Air 11/30 0958 97.0 88 20 124/82 100 Room Air on exam; aox3, nad. heent: dry mm. cv; s1,s2, rrr resp; clear abd; soft, nt, bs+ ext; no edema Laboratory Tests 11/30 11/30 11/30 1515 1346 1243 Chemistry Lactic Acid (0.7 - 2.1 mmol/L) 0.7 Cancelled Toxicology Urine Opiates Screen (>2000 NG/ML) < 100.00 Methadone Screen (>300 NG/ML) < 40 Barbiturate Screen (>200 NG/ML) < 60 Ur Phencyclidine Scrn (>25 NG/ML) < 6.00 Amphetamines Screen (>1000 NG/ML) < 100 U Benzodiazepines Scrn (>200 NG/ML) < 85 Urine Cocaine Screen (>300 NG/ML) < 50 Urine Cannabis Screen (>50 NG/ML) > 80.00 H 11/30 1000 Chemistry Sodium (137 - 145 mmol/L) 144 Potassium (3.5 - 5.1 mmol/L) 3.8 Chloride (98 - 107 mmol/L) 111 H Carbon Dioxide (22 - 30 mmol/L) 16 L Anion Gap (5 - 16) 16 BUN (9 - 20 mg/dL) 11 Creatinine (0.7 - 1.2 mg/dL) 0.7 Estimated GFR (>60 ml/min) > 60 BUN/Creatinine Ratio (7 - 25 %) 15.7 Glucose (65 - 99 mg/dL) 118 H Lactic Acid (0.7 - 2.1 mmol/L) 2.3 H Calcium (8.4 - 10.2 mg/dL) 10.1 Total Bilirubin (0.2 - 1.3 mg/dL) 0.5 AST (17 - 59 U/L) 21 ALT (21 - 72 U/L) 35 Alkaline Phosphatase (< 127 U/L) 120 Total Protein (6.3 - 8.2 g/dL) 7.5 Albumin (3.5 - 5.0 g/dL) 4.9 Globulin (1.9 - 4.2 gm/dL) 2.6 Albumin/Globulin Ratio (1.1 - 2.2 %) 1.9 Lipase (23 - 300 U/L) 110 Hematology CBC w Diff MAN DIFF ORDERED WBC (4.8 - 10.8 /CUMM) 20.7 H RBC (4.70 - 6.10 /CUMM) 5.35 Hgb (14.0 - 18.0 G/DL) 14.9 Hct (42 - 52 %) 45.3 MCV (80.0 - 94.0 FL) 84.6 MCH (27.0 - 31.0 PG) 27.8 MCHC (33.0 - 37.0 G/DL) 32.9 L RDW (11.5 - 14.5 %) 13.9 Plt Count (130 - 400 /CUMM) 388 MPV (7.4 - 10.4 FL) 8.5 Gran % (42.2 - 75.2 %) 81.4 H Lymphocytes % (20.5 - 51.1 %) 13.5 L Monocytes % (1.7 - 9.3 %) 3.6 Eosinophils % (0 - 5 %) 0.9 Basophils % (0.0 - 2.0 %) 0.6 Absolute Granulocytes (1.4 - 6.5 /CUMM) 16.8 H Absolute Lymphocytes (1.2 - 3.4 /CUMM) 2.8 Absolute Monocytes (0.10 - 0.60 /CUMM) 0.7 H Absolute Eosinophils (0.0 - 0.7 /CUMM) 0.2 Absolute Basophils (0.0 - 0.2 /CUMM) 0.1 Platelet Estimate (ADEQUATE) ADEQUATE Normocytic RBCs VERIFIED Normochromic RBCs VERIFIED CT abd/pelvis: IMPRESSION: Imaging findings are most suggestive of an underlying infectious or inflammatory colitis. There may be an enteritis as well. There is no bowel obstruction and there is no free air. The appendix is normal. A/P; 36 y/o M with pmh sig for mild gastroparesis (based on gastric emptying study), GERD, erosive gastritis on EGD (03/05) and diverticulosis (noted on colonoscopy 05/05) admitted to medicine floor with intractable nausea, vomiting and abdominal pain as well as mild diarrhea. CT findings consistent with possible infectious or inflammatory colitis as well as enteritis. Patient is also dehydrated. Patient also has leukocytosis and a low bicarbonate level. Patient will be treated empirically medically with antiemetics. He will be hydrated with IV fluids. Lactate was high initially but it did come down. Please check stool studies for stool culture, C. difficile and O&P. GI consult will be obtained. Urine tox screen continues to remain positive for cannabis. Patien will benefit from avoiding cannabis. Chronic benzos which can be continued. DVT px: Lovenox. He is a full code.
[2017-11-30 17:13] VITALS: BP 130/90
--- NOTE | 2017-11-30 19:37 | Cons- Gastroenterology ---
General Information and HPI Consulting Request Date of Consult: 11/30/17 Requested By: Jeff TIWARI,Rosa Reason for Consult: I was called late this afternoon by the hospitalist service, to assess nausea, vomiting, & abdominal pain, with abnormal CT, in a patient on cannabis. Source of Information: patient, old records Exam Limitations: no limitations History of Present Illness: 36 y/o male, non-HTN, non-DM, anxiety, with extensive previous GI workup most suggestive of cannabis hyperemesis syndrome vs. cyclical nausea & vomiting. The patient has known diverticulosis coli without diverticulitis. Additionally, he had a borderline positive gastric scintiscan at 4 hours (*see below), & mild GERD. *The patient had previously been followed for GI by Dr. Posada: 12/27/15: RUQ sono- unremarkable (nl liver, GB, CBD 4 mm, nl visualized pancreas , and nl right kidney. No ascites). 01/24/16: CT AP with IV/po contrast per [facility] (done for abdominal pain, nausea, & vomiting)- Colonic diverticulosis coli without diverticulitis. Mural prominence of duodenum with possible duodenitis, although no appreciable surrounding inflammatory change. No significant gastric distention to suggest gastric outlet obstruction. No bowel obstruction. 02/16/16: Gastric scintiscan- *mild abnormal retention of solid food in the stomach at 4 hours- 17% (normal 0-10%). 02/24/16: EGD to D2-(done for abdominal pain, nausea, vomiting, & dysphagia)- Nonerosive gastritis post biopsies- minimal chronic antral gastritis, HP negative, mild congestion gastric body, HP negative. Grossly normal small bowel folds, esophageal mucosa, and GE junction, post random biopsies. Random duodenal biopsies- negative. Random biopsies GE junction at 40 cm- squamous mucosa with minimal reactive change, without EOE, without Melton's esophagus, & adjacent gastric mucosa with chronic inflammation, H. pylori negative. Random esophageal biopsy-unremarkable squamous mucosa. No retained food seen. 05/02/16: Colonoscopy to [facility] (done for change in bowel habits, r/o IBD)- sigmoid diverticula with an isolated diverticulum in the transverse colon. Multiple internal hemorrhoids. Normal mucosa to the terminal ileum. (A follow-up colonoscopy was advised by age 52, as per current average-risk for colon cancer screening guidelines). 03/07/17: CT AP with IV/po contrast per [facility] (done for abdominal pain, nausea, & vomiting)- No free air. No obstruction. Diffuse diverticulosis without diverticulitis. No acute findings. 1.5 x 0.8 cm indeterminate stable right adrenal nodule, without change since previous CT of 01/24/16. 03/10/17: Multiple abdominal films per ER (done for abdominal pain)- Unremarkable bowel gas pattern. *The patient was last seen in the office by Dr. Posada 04/26/17. At that point, Dr. Posada had tried Reglan, Zofran, & Promethazine without relief. *The differential diagnosis at that point included cannabis hyperemesis syndrome vs. cyclical nausea & vomiting, with perhaps a minimal component of gastroparesis, as the 02/16/16: gastric scintiscan was only borderline abnormal at 17% at 4 hours (normal at 4 hours being 10% or less). *Dr. Posada advised a trial of either SSRI or TCA. *He also mentioned cutting back on the cannabis. At that point, the patient became verbally combative and abusive towards Dr. Posada, insinuating that Dr. Posada thought he was psychiatrically imbalanced. He then gave Dr. Posada a lecture on cannabis, and what he thought about the medical establishment's opinion on it. Dr. Posada advised the patient to seek GI care elsewhere. *Buddy Vuong advised the patient to see Dr. Hua in [place], shortly thereafter, in 05/2017, but the patient did not comply. 04/27/17: CT AP w/o contrast per ER (done for abdominal pain, vomiting, elevated WBC)- No acute abnormality. Mild diverticulosis without diverticulitis. Normal appendix. Moderate amount of stool in colon. No obstruction. No free air. No hernia. No adenopathy. Normal kidneys. At least 4 successive outpt Utox have tested positive for cannabis > 80. *He previously smoked > 1 g pot daily, but then stated he had stopped cannabis for months at a time (*not certain of validity). *It was difficult to accurately say what happened to the patient's GI symptoms when he was allegedly off cannabis. He denied any additional illicit drugs or IVDA. Previous EtOH levels were negative. He claimed he rarely drank EtOH. He denied any significant caffeine intake. He had a > 15 pk yr hx cigarette smoking, currently 1/2 ppd. The patient had persistently normal outpt CBC, LFTs, lipase, GFR, & electrolytes, except for occasional mildly decreased HCO3. When he flares, his leukocytosis was most likely from dehydration. He claimed he had been getting these GI flares since he was a teenager. The patient was previously admitted to [facility] 05/05/16 to 05/06/16, 3 days after his colonoscopy, for intractable nausea, vomiting, & abdominal pain. He had leukocytosis then, with a borderline positive lactate. After IV hydration, his labs normalized. *The patient had been in the [facility] 11/29/17 for a similar GI flare, and was discharged to home. The patient returned to the [facility] 11/30/17, yet again, arriving 9:47 a.m., NICA from home, complaining of intractable nausea, vomiting, & subjective abdominal pain, described as sharp and bandlike in the epigastric region, "10 out of 10". It was difficult for him to further qualify or quantify his pain. He denied any positional component. He denied any fevers, jaundice or FFI. He claimed he had "chills," as he "felt cold" after he vomited. He claimed the GI symptoms were independent of eating. The symptoms awoke him from sleep early this morning. Upon arrival, BP 124/82, P 88, R 20, T 97, O2 sat RA 100%. He claimed he had 10 episodes of nausea & vomiting, with contents showing bile, but no blood. He then had dry heaves. He denied taking any aspirin or NSAIDs. He noted GERD, without any odynophagia or dysphagia. He claimed he had somewhat chronic early satiety. He denied any weight loss or change in appetite. He had soft bowel movements, with 4 "pudding" bowel movements the day of admission. There was no diarrhea or H2Oery stools. He denied any rectal bleeding or melena. He denied any constipation, obstipation, or tenesmus. Aside from an outbreak of shingles near his left lower lip a couple of weeks ago, he denied any rashes or acute arthralgias. There was no point source by history. There were no sick contacts. He denied any raw food ingestion, recent antibiotics, or recent travel. He claimed he last smoked pot the evening prior to admission. His cannabis levels were again positive. He noted that stress made his symptoms worse. He denied any history of migraine headaches, aura, or neurologic symptoms, but did admit to tension headaches. The patient claimed his last flare of GI symptoms were about 6 months ago. He claimed that sitting in a hot tub made his symptoms better. He had no sx of UTI or URI. He was on outpt Bentyl, Reglan, & Zofran. He denied any EPS side effects from the Reglan. He denied taking any outpt benzodiazepines. He denied any previous abdominal surgery. Regarding the borderline GES, he denied any DM or hypoT4. There was no family history of GI Ca, IBD, PUD, celiac sprue, inherited pancreatitis, or inherited liver disease. The patient's mother had a CCKY for sx gallstones & diverticulosis coli. The patient was given IV NS, Ativan, Reglan, Zofran, & Phenergan in the ER. Although he felt somewhat better after medication, he had leukocytosis and a mildly elevated lactata, in addition to a somewhat abnormal CT (? false positive "colitis & enteritis," due to underdistention of bowel), & he was admitted to General Medicine. 11/30/17: 10:00 a.m.- Admission labs-WBC 20.7 (81% gran/17 gran Ab), H/H 14.9/ 45.3, MCV 84.6, RDW 13.9, PLT 388, glu 118, BUN/Cr 11/0.7, GFR > 60, Na 144, K 3.8, HCO3 16, AG 16, lactate 2.3 -> 0.7, lipase 110, Ca 10.1, albumin 4.9, globulin 2.6, TBil 0.5, alk phos 120, AST 21, ALT 35. 11/30/17: *Utox: > 80 cannabis. 11/30/17: CT ABD & PELVIS WITH IV CONTRAST- Imaging findings are most suggestive of an underlying infectious or inflammatory colitis. There may be an enteritis as well. There is no bowel obstruction and there is no free air. The appendix is normal. There is no adenopathy or ascites. Normal liver, spleen, adrenals, GB, & pancreas. (Please note, the colon was decompressed without po contrast, and therefore may have false positive "wall thickening" without true colitis or enteritis). DICTATED BY: Nate Guajardo MD I personally reviewed the CT with Dr. Helm, of [facility]. He agreed that there was a good chance that above reading was a false positive. Allergies/Medications Allergies: Coded Allergies: codeine (Intermediate, RASH 12/27/15) venom-honey bee (BEE VENOM (HONEY BEE)) (Intermediate, SITE WHERE STUNG SWELLS 05/05/16) Home Med List: Dicyclomine HCl 10 MG CAPSULE 1 CAP PO TID GI (Reported) Metoclopramide HCl (Reglan) 10 MG TABLET 1 TAB PO 4 TIMES/DAY PRN NAUSEA Ondansetron HCl (Zofran) 4 MG TABLET 1 TAB PO Q6-8P PRN NAUSEA Current Medications: Current Medications Sig/Jose J Start time Last Medication Dose Route Stop Time Status Admin Enoxaparin Sodium 40 MG DAILY 11/30 1428 AC SC Lorazepam 0.5 MG Q12 PRN 11/30 1500 AC IV Lorazepam 1 MG ONCE ONE 11/30 1415 DC 11/30 IV 11/30 1416 1415 Lorazepam 0 .STK-MED ONE 11/30 1415 DC .ROUTE Lorazepam 0 .STK-MED ONE 11/30 1014 DC .ROUTE Lorazepam 2 MG ONE ONE 11/30 1000 DC 11/30 IV 11/30 1001 1008 Metoclopramide HCl 0 .STK-MED ONE 11/30 1014 DC .ROUTE Metoclopramide HCl 10 MG ONCE ONE 11/30 1000 DC 11/30 IV 11/30 1001 1008 Ondansetron HCl 0 .STK-MED ONE 11/30 1014 DC .ROUTE Ondansetron HCl 4 MG ONCE ONE 11/30 1000 DC 11/30 IV 11/30 1001 1008 Promethazine HCl 12.5 MG Q6 PRN 11/30 1430 AC IV 12/07 1429 Promethazine HCl 12.5 MG ONCE ONE 11/30 1415 DC IV 11/30 1416 Promethazine HCl 0 .STK-MED ONE 11/30 1408 DC .ROUTE Promethazine HCl 12.5 MG ONCE ONE 11/30 1330 DC 11/30 IV 11/30 1331 1415 Sodium Chloride 1,000 ML Q10H 11/30 1430 AC 11/30 IV 1724 Sodium Chloride 1,000 ML BOLUS ONE 11/30 1215 DC 11/30 IV 11/30 1314 1242 Sodium Chloride 1,000 ML BOLUS ONE 11/30 1000 DC 11/30 IV 11/30 1059 1008 Past History Travel History Traveled to [place] past 21 day No Medical History Blood Transfusion Hx: No Neurological: NONE EENT: NONE Cardiovascular: NONE Respiratory: NONE Gastrointestinal: GERD, GASTROPARESIS (borderline GES at 4 hrs); DIVERTICULOSIS COLI Hepatic: NONE Renal: NONE Musculoskeletal: NONE Psychiatric: anxiety Endocrine: NONE Blood Disorders: NONE Cancer(s): NONE 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 Age 59. FATHER, Age 57. BROTHER, Age 31. SISTER (OBESE). Age 32. Psychosocial History Where Do You Live? Home Who Do You Live With? child, fiancee Services at Home: None Primary Language: Georgian Smoking Status: Current Everyday Smoker ETOH Use: denies use Illicit Drug Use: marijuana Living Will? no Power of Senior Sales Representative/HCP? no Other Social History: Engaged ("to be next month"). Lives with [facility] & 3 children. Never . 2 biologic children (1 son & 1 dtr), & 1 stepdtr- [employer]. 15 pkyr cigarette smoker, currently 1/2 ppd. No significant EtOH. + Cannabis x yrs. Denies additional illicit drugs or IVDA. Previously did [employer]. Now works at [employer]. Functional Ability ADLs Independent: dressing, eating, toileting, bathing. Ambulation: independent IADLs Independent: shopping, housework, finances, food prep, telephone, transportation , medication admin. Employment History Employment: Employed Profession/Employer: [employer] Review of Systems Review of Systems: Full 14 point ROS otherwise noncontributory, and as above. Review of Systems Constitutional: Reports: chills (only after vomiting). Denies: diaphoresis, fever, malaise, weakness, unexplained weight loss. EENTM: Denies: blurred vision, double vision, visual changes, eye pain, eye drainage, eye tearing, icterus, ear discharge, ear pain, ear redness, hearing changes, nasal congestion, epistaxis, nasal pain, throat pain, throat swelling, mouth pain, tooth pain. Cardiovascular: Denies: chest pain, edema, orthopena, palpitations, peripheral edema, syncope. Respiratory: Denies: cough, hemoptysis, orthopnea, short of breath, sputum production, stridor, wheezing. GI: Reports: abdominal pain, nausea, vomiting. Denies: bloating, constipation, diarrhea, distention, bowel incontinence, melena, bloody stool, changes in stool , steatorrhea. Genitourinary: Denies: discharge, dysuria, frequency, hematuria, hesitation, nocturia, pain, urgency. Musculoskeletal: Denies: back pain, gout, joint pain, joint swelling, muscle pain, muscle stiffness, neck pain. Skin: Denies: cysts, change in skin color, change in hair/nails, dryness, erythema, jaundice, lesions, lymphangitis, lumps, moles, rash. Neurological/Psychological: Reports: anxiety, emotional problems ("stress"). Denies: ataxia, cognitive dysfunction, confusion, depressed, dementia, headache, numbness, paresthesia, pre-existing deficit, petit mal seizures, tingling, tremors, tonic-clonic seizures, unable to move lower ext, unable to move upper ext, weakness. Hematologic/Endocrine: Denies: bruising, bleeding, polyuria, polydipsia. Immunologic/Allergic: Denies: splenectomy, HIV/AIDS, lymphadenopathy. All Other Systems: Reviewed and Negative Exam & Diagnostic Data Vital Signs and I&O Vital Signs Date Time Temp Pulse Resp B/P B/P Pulse O2 O2 Flow FiO2 Mean Ox Delivery Rate 11/30 1713 98.0 86 18 130/90 98 Room Air 11/30 1631 98.9 75 20 140/70 98 Room Air 11/30 1345 97.8 73 18 122/80 98 Room Air 11/30 1136 98.7 99 17 122/78 99 Room Air 11/30 0958 97.0 88 20 124/82 100 Room Air Intake & Output 11/30 1600 11/30 0400 11/29 1600 11/29 0400 11/28 1600 11/28 0400 Intake Total 1000 Output Total Balance 1000 Intake, IV 1000 Patient 160 lb Weight Weight Reported by Patient Measurement Method Physical Exam: Well-developed, well-nourished, slightly anxious male, in no apparent distress. Sclera anicteric. Conjunctiva pink. Oropharynx clear. Slightly dry mucus membranes. No oral thrush. No aphthous ulcers. There is no adenopathy, thyromegaly, or JVD. No peripheral stigmata of inflammatory bowel disease or chronic liver disease on exam. No spiders on the anterior chest wall. No gynecomastia. No CVA tenderness. No spine tenderness. Lungs: clear to A&P. No wheezing, rales, or rhonchi. Heart exam: regular rate rhythm, S1 and S2, without any murmur. Abdominal exam: normal bowel sounds, soft belly, nontender, without guarding or rebound. No mass. No organomegaly. Negative Nunn sign. No fluid shift. No pulsatile mass. No epigastric bruit. Digital rectal exam: refused by patient ("done at 05/02/16: colonoscopy"). Extremities: without C, C, or E. No rash. Resolved zoster left lower lip. No acute arthropathy. No palmar erythema. No Dupuytren's contracturees. No palpable cords. Distal pulses 2+ bilaterally. DTRs 2+ bilaterally. Right handed. Alert & oriented x 3. Motor 5/5 B/L. No focal deficits, but a detailed exam for peripheral neuropathy was deferred. No tremor. No asterixis. No cogwheeling (on Reglan). Results Pertinent Lab Results: Laboratory Tests 11/30 11/30 11/30 11/30 1646 1515 1346 1243 Chemistry Lactic Acid (0.7 - 2.1 mmol/L) Cancelled 0.7 Cancelled Toxicology Urine Opiates Screen (>2000 NG/ML) < 100.00 Methadone Screen (>300 NG/ML) < 40 Barbiturate Screen (>200 NG/ML) < 60 Ur Phencyclidine Scrn (>25 NG/ML) < 6.00 Amphetamines Screen (>1000 NG/ML) < 100 U Benzodiazepines Scrn (>200 NG/ML) < 85 Urine Cocaine Screen (>300 NG/ML) < 50 Urine Cannabis Screen (>50 NG/ML) > 80.00 H 11/30 1000 Chemistry Sodium (137 - 145 mmol/L) 144 Potassium (3.5 - 5.1 mmol/L) 3.8 Chloride (98 - 107 mmol/L) 111 H Carbon Dioxide (22 - 30 mmol/L) 16 L Anion Gap (5 - 16) 16 BUN (9 - 20 mg/dL) 11 Creatinine (0.7 - 1.2 mg/dL) 0.7 Estimated GFR (>60 ml/min) > 60 BUN/Creatinine Ratio (7 - 25 %) 15.7 Glucose (65 - 99 mg/dL) 118 H Lactic Acid (0.7 - 2.1 mmol/L) 2.3 H Calcium (8.4 - 10.2 mg/dL) 10.1 Total Bilirubin (0.2 - 1.3 mg/dL) 0.5 AST (17 - 59 U/L) 21 ALT (21 - 72 U/L) 35 Alkaline Phosphatase (< 127 U/L) 120 Total Protein (6.3 - 8.2 g/dL) 7.5 Albumin (3.5 - 5.0 g/dL) 4.9 Globulin (1.9 - 4.2 gm/dL) 2.6 Albumin/Globulin Ratio (1.1 - 2.2 %) 1.9 Lipase (23 - 300 U/L) 110 Hematology CBC w Diff MAN DIFF ORDERED WBC (4.8 - 10.8 /CUMM) 20.7 H RBC (4.70 - 6.10 /CUMM) 5.35 Hgb (14.0 - 18.0 G/DL) 14.9 Hct (42 - 52 %) 45.3 MCV (80.0 - 94.0 FL) 84.6 MCH (27.0 - 31.0 PG) 27.8 MCHC (33.0 - 37.0 G/DL) 32.9 L RDW (11.5 - 14.5 %) 13.9 Plt Count (130 - 400 /CUMM) 388 MPV (7.4 - 10.4 FL) 8.5 Gran % (42.2 - 75.2 %) 81.4 H Lymphocytes % (20.5 - 51.1 %) 13.5 L Monocytes % (1.7 - 9.3 %) 3.6 Eosinophils % (0 - 5 %) 0.9 Basophils % (0.0 - 2.0 %) 0.6 Absolute Granulocytes (1.4 - 6.5 /CUMM) 16.8 H Absolute Lymphocytes (1.2 - 3.4 /CUMM) 2.8 Absolute Monocytes (0.10 - 0.60 /CUMM) 0.7 H Absolute Eosinophils (0.0 - 0.7 /CUMM) 0.2 Absolute Basophils (0.0 - 0.2 /CUMM) 0.1 Platelet Estimate (ADEQUATE) ADEQUATE Normocytic RBCs VERIFIED Normochromic RBCs VERIFIED Imaging/Other Studies: 11/30/17: CT ABD & PELVIS WITH IV CONTRAST- Imaging findings are most suggestive of an underlying infectious or inflammatory colitis. There may be an enteritis as well. There is no bowel obstruction and there is no free air. The appendix is normal. There is no adenopathy or ascites. Normal liver, spleen, adrenals, GB, & pancreas. (Please note, the colon was decompressed without po contrast, and therefore may have false positive "wall thickening" without true colitis or enteritis). DICTATED BY: Nate Guajardo MD I reviewed the CT with Dr. Helm, of [facility]. He agreed that there was a good chance that above reading was a false positive. Assessment/Plan Assessment/Recommendations: 36 y/o male, non-HTN, non-DM, anxiety, with extensive previous GI workup most suggestive of cannabis hyperemesis syndrome vs. cyclical nausea & vomiting. The patient has known diverticulosis coli without diverticulitis. Additionally, he had a borderline positive gastric scintiscan at 4 hours (*see below), & mild GERD. *The patient had previously been followed for GI by Dr. Posada: 12/27/15: RUQ sono- unremarkable (nl liver, GB, CBD 4 mm, nl visualized pancreas , and nl right kidney. No ascites). 01/24/16: CT AP with IV/po contrast per [facility] (done for abdominal pain, nausea, & vomiting)- Colonic diverticulosis coli without diverticulitis. Mural prominence of duodenum with possible duodenitis, although no appreciable surrounding inflammatory change. No significant gastric distention to suggest gastric outlet obstruction. No bowel obstruction. 02/16/16: Gastric scintiscan- *mild abnormal retention of solid food in the stomach at 4 hours- 17% (normal 0-10%). 02/24/16: EGD to D2-(done for abdominal pain, nausea, vomiting, & dysphagia)- Nonerosive gastritis post biopsies- minimal chronic antral gastritis, HP negative, mild congestion gastric body, HP negative. Grossly normal small bowel folds, esophageal mucosa, and GE junction, post random biopsies. Random duodenal biopsies- negative. Random biopsies GE junction at 40 cm- squamous mucosa with minimal reactive change, without EOE, without Melton's esophagus, & adjacent gastric mucosa with chronic inflammation, H. pylori negative. Random esophageal biopsy-unremarkable squamous mucosa. No retained food seen. 05/02/16: Colonoscopy to [facility] (done for change in bowel habits, r/o IBD)- sigmoid diverticula with an isolated diverticulum in the transverse colon. Multiple internal hemorrhoids. Normal mucosa to the terminal ileum. (A follow-up colonoscopy was advised by age 52, as per current average-risk for colon cancer screening guidelines). 03/07/17: CT AP with IV/po contrast per [facility] (done for abdominal pain, nausea, & vomiting)- No free air. No obstruction. Diffuse diverticulosis without diverticulitis. No acute findings. 1.5 x 0.8 cm indeterminate stable right adrenal nodule, without change since previous CT of 01/24/16. 03/10/17: Multiple abdominal films per ER (done for abdominal pain)- Unremarkable bowel gas pattern. *The patient was last seen in the office by Dr. Posada 04/26/17. At that point, Dr. Posada had tried Reglan, Zofran, & Promethazine without relief. *The differential diagnosis at that point included cannabis hyperemesis syndrome vs. cyclical nausea & vomiting, with perhaps a minimal component of gastroparesis, as the 02/16/16: gastric scintiscan was only borderline abnormal at 17% at 4 hours (normal at 4 hours being 10% or less). *Dr. Posada advised a trial of either SSRI or TCA. *He also mentioned cutting back on the cannabis. At that point, the patient became verbally combative and abusive towards Dr. Posada, insinuating that Dr. Posada thought he was psychiatrically imbalanced. He then gave Dr. Posada a lecture on cannabis, and what he thought about the medical establishment's opinion on it. Dr. Posada advised the patient to seek GI care elsewhere. *Buddy Vuong advised the patient to see Dr. Hua in [place], [place], shortly thereafter, in 05/2017, but the patient did not comply. 04/27/17: CT AP w/o contrast per ER (done for abdominal pain, vomiting, elevated WBC)- No acute abnormality. Mild diverticulosis without diverticulitis. Normal appendix. Moderate amount of stool in colon. No obstruction. No free air. No hernia. No adenopathy. Normal kidneys. At least 4 successive outpt Utox have tested positive for cannabis > 80. *He previously smoked > 1 g pot daily, but then stated he had stopped cannabis for months at a time (*not certain of validity). *It was difficult to accurately say what happened to the patient's GI symptoms when he was allegedly off cannabis. He denied any additional illicit drugs or IVDA. Previous EtOH levels were negative. He claimed he rarely drank EtOH. He denied any significant caffeine intake. He had a > 15 pk yr hx cigarette smoking, currently 1/2 ppd. The patient had persistently normal outpt CBC, LFTs, lipase, GFR, & electrolytes, except for occasional mildly decreased HCO3. When he flares, his leukocytosis was most likely from dehydration. He claimed he had been getting these GI flares since he was a teenager. The patient was previously admitted to [facility] 05/05/16 to 05/06/16, 3 days after his colonoscopy, for intractable nausea, vomiting, & abdominal pain. He had leukocytosis then, with a borderline positive lactate. After IV hydration, his labs normalized. *The patient had been in the [facility] 11/29/17 for a similar GI flare, and was discharged to home. The patient returned to the [facility] 11/30/17, yet again, arriving 9:47 a.m.NICA from home, complaining of intractable nausea, vomiting, & subjective abdominal pain, described as sharp and bandlike in the epigastric region, "10 out of 10". It was difficult for him to further qualify or quantify his pain. He denied any positional component. He denied any fevers, jaundice or FFI. He claimed he had "chills," as he "felt cold" after he vomited. He claimed the GI symptoms were independent of eating. The symptoms awoke him from sleep early this morning. Upon arrival, BP 124/82, P 88, R 20, T 97, O2 sat RA 100%. He claimed he had 10 episodes of nausea & vomiting, with contents showing bile, but no blood. He then had dry heaves. He denied taking any aspirin or NSAIDs. He noted GERD, without any odynophagia or dysphagia. He claimed he had somewhat chronic early satiety. He denied any weight loss or change in appetite. He had soft bowel movements, with 4 "pudding" bowel movements the day of admission. There was no diarrhea or H2Oery stools. He denied any rectal bleeding or melena. He denied any constipation, obstipation, or tenesmus. Aside from an outbreak of shingles near his left lower lip a couple of weeks ago, he denied any rashes or acute arthralgias. There was no point source by history. There were no sick contacts. He denied any raw food ingestion, recent antibiotics, or recent travel. He claimed he last smoked pot the evening prior to admission. His cannabis levels were again positive. He noted that stress made his symptoms worse. He denied any history of migraine headaches, aura, or neurologic symptoms, but did admit to tension headaches. The patient claimed his last flare of GI symptoms were about 6 months ago. He claimed that sitting in a hot tub made his symptoms better. He had no sx of UTI or URI. He was on outpt Bentyl, Reglan, & Zofran. He denied any EPS side effects from the Reglan. He denied taking any outpt benzodiazepines. He denied any previous abdominal surgery. Regarding the borderline GES, he denied any DM or hypoT4. There was no family history of GI Ca, IBD, PUD, celiac sprue, inherited pancreatitis, or inherited liver disease. The patient's mother had a CCKY for sx gallstones & diverticulosis coli. The patient was given IV NS, Ativan, Reglan, Zofran, & Phenergan in the ER. Although he felt somewhat better after medication, he had leukocytosis and a mildly elevated lactata, in addition to a somewhat abnormal CT (? false positive "colitis & enteritis," due to underdistention of bowel), & he was admitted to General Medicine. 11/30/17: 10:00 a.m.- Admission labs-WBC 20.7 (81% gran/17 gran Ab), H/H 14.9/ 45.3, MCV 84.6, RDW 13.9, PLT 388, glu 118, BUN/Cr 11/0.7, GFR > 60, Na 144, K 3.8, HCO3 16, AG 16, lactate 2.3 -> 0.7, lipase 110, Ca 10.1, albumin 4.9, globulin 2.6, TBil 0.5, alk phos 120, AST 21, ALT 35. 11/30/17: *Utox: > 80 cannabis. 11/30/17: CT ABD & PELVIS WITH IV CONTRAST- Imaging findings are most suggestive of an underlying infectious or inflammatory colitis. There may be an enteritis as well. There is no bowel obstruction and there is no free air. The appendix is normal. There is no adenopathy or ascites. Normal liver, spleen, adrenals, GB, & pancreas. (Please note, the colon was decompressed without po contrast, and therefore may have false positive "wall thickening" without true colitis or enteritis). DICTATED BY: Nate Guajardo MD I personally reviewed the CT with Dr. Helm, of [facility]. He agreed that there was a good chance that above reading was a false positive. *The differential diagnosis for the above again includes cannabis hyperemesis syndrome vs. cyclical nausea & vomiting. The above is superimposed on anxiety, the latter possibly exacerbated by his "upcoming marriage next month". Additionally, he had a borderline positive gastric scintiscan at 4 hours. The patient has known diverticulosis coli, without diverticulitis. He also had mild GERD. The patient has had an extensive GI workup as outlined, including numerous CAT scans, abdominal sono, gastric emptying study, EGD, & colonoscopy, all within the past 2 years. *In fact, I feel that he has had too many CAT scans, including 6 CT AP over the past 2 years (increased radiation). * I do not think the patient has colitis/enteritis, as I feel that his 11/30/17: admission CT AP with IV contrast was falsely positive, *due to underdistention of the colon and small bowel, from lack of po contrast (*Dr. Helm, of [facility], agreed). He had no diarrhea by history. It was very difficult to get a straight answer from the patient as to whether he had stopped cannabis for a significant amount of time. If he truly was off cannabis for at least a few weeks and his symptoms persisted, it would point more to cyclical nausea & vomiting syndrome. He claimed his last GI flare was 6 months ago. Cyclical nausea & vomiting is associated with anxiety/depression about 20% of the time. Additionally, it could be associated with migraine HERNANDEZ, which the patient denied. However, he did admit to tension HERNANDEZ. Cyclical nausea & vomiting syndrome often is associated with a positive tilt table test. The patient has previously had negative random duodenal biopsies for celiac sprue, although I'm not certain he had any serologies for this. I doubt that he has any more obscure diseases, accounting for his symptoms, such as porphyria, angioedema, significant hyperTG, etc. Additionally, DM and/or thyroid disease should be excluded, with the borderline positive gastric scintiscan. The patient was not compliant with a suggested referral to Dr. Hua, as he was no longer followed by Dr. Posada. *SUGGEST- Clears po & advance diet as tolerated. IV NS @ 100 cc/hr. Strict I/O's. IV PPI. Anti-reflux measures. IV Reglan (the risks & benefits of this were discussed with the patient, includng small chance of EPS side effects). IV Zofran. Phenergan prn. Ativan as needed. Follow-up CBC & electrolytes. *Check HgbA1C, TFT with TSHR, celiac panel (i.e.- IgA, tTG Ab, DGP Ab), CRP, & ESR. *Advise MRE (inpt vs. outpt), to disprove the admission CT findings of "colitis/enteritis". *Doubt need for repeat scoping, based on lack of diarrhea & relatively recent colonoscopy. *Strong consideration for SSRI (i.e.- Zoloft) or TCA. *Consider stool workup (i.e.- lactoferrin, C&S, C. difficile, Shiga toxin, etc.), but no diarrhea. *D/C cannabis & cigarettes. Avoid narcotic analgesics, which could exacerbate "gastroparesis". *Consider outpt Tilt table testing with cardiology & if abnormal, would advise a trial of beta blockers. Doubt need for more esoteric workup (i.e.- 24 hr urine for porphobilinogen; C3/C4/C1 esterase inhibitor; TG level, etc.). The patient has had persistently normal LFTs, with nl GB on sono/CT (doubt need for outpt HIDA scan with GB EF). Consider outpt referral for food allergy testing. Consider outpt CT head (doubt central source for nausea & vomiting). DVT prophylaxis. Mobilize patient. *Outpt GI follow-up will be with the area coordinator of the patient's choice, as he had already left our group & was supposed to see Dr. Hernando Hua, of [place], [place]. The case was discussed with the medical housestaff. Further inpatient GI recommendations & follow-up will be based on the patient's clinical course. Problem List: 1. Cannabinoid hyperemesis syndrome 2. Cyclical vomiting with nausea 3. Abdominal pain 4. Gastroparesis 5. GERD (gastroesophageal reflux disease) 6. Diverticula of colon 7. Leukocytosis Copies To: Carolann DALY,Stalin Lee; Jeff TIWARI,Rosa; Albino TIWARI,[place] Consult Acknowledgment - Thank you for your consult request.
[2017-11-30 21:50] VITALS: BP 102/76
[2017-12-01 07:17] VITALS: BP 96/54
[2017-12-01 08:04] LABS: ABSOLUTE BASOPHIL COUNT 0.1 /CUMM (0.0-0.2); ABSOLUTE EOSINOPHIL COUNT 0.1 /CUMM (0.0-0.7); MEAN CORPUSCULAR HGB 28.5 PG (27.0-31.0)
[2017-12-01 08:13] LABS: ABSOLUTE GRANULOCYTE CT 10.8 /CUMM (1.4-6.5); ABSOLUTE LYMPH COUNT 3.5 /CUMM (1.2-3.4); BASOPHIL % 0.4 % (0.0-2.0); EOSINOPHIL % 0.9 % (0-5); GRANULOCYTE % 69.8 % (42.2-75.2); HEMATOCRIT 40.4 % (42-52); MEAN CORPUSCULAR HGB CONC 33.5 G/DL (33.0-37.0); MEAN CORPUSCULAR VOLUME 84.9 FL (80.0-94.0); MEAN PLATELET VOLUME 8.7 FL (7.4-10.4); PLATELET COUNT 334 /CUMM (130-400); RED BLOOD CELL CT 4.76 /CUMM (4.70-6.10); WHITE BLOOD CELL COUNT 15.5 /CUMM (4.8-10.8)
--- NOTE | 2017-12-01 09:06 | PN- Housestaff ---
See Addendum Subjective Follow-up For: intractable nausea, vomiting, abdominal pain possible gastroparesis Subjective: patient feels markedly improved from yesterday, no further episodes of emesis today afebrile remains npo but hungry no complaints of abdominal pain Review of Systems Constitutional: Reports: see HPI. Objective Last 24 Hrs of Vital Signs/I&O Vital Signs Date Time Temp Pulse Resp B/P B/P Pulse O2 O2 Flow FiO2 Mean Ox Delivery Rate 12/01 0717 97.7 84 18 96/54 98 11/30 2150 98.3 76 18 102/76 96 Room Air 11/30 1713 98.0 86 18 130/90 98 Room Air 11/30 1631 98.9 75 20 140/70 98 Room Air 11/30 1345 97.8 73 18 122/80 98 Room Air Intake & Output 12/01 1600 12/01 0800 12/01 0000 Intake Total 800 Output Total Balance 800 Intake, IV 800 Number 1 Bowel Movements Patient 76.204 kg Weight Physical Exam General Appearance: Alert, Oriented X3, Cooperative, No Acute Distress Cardiovascular: Regular Rate, Normal S1, Normal S2, No Murmurs Lungs: Clear to Auscultation, Normal Air Movement Abdomen: Normal Bowel Sounds, Soft, No Tenderness, No Masses Extremities: No Clubbing, No Cyanosis, No Edema Current Medications: Current Medications Sig/Jose J Start time Last Medication Dose Route Stop Time Status Admin Enoxaparin Sodium 40 MG DAILY 11/30 1428 AC SC Lorazepam 0.5 MG Q12 PRN 11/30 1500 AC IV Lorazepam 1 MG ONCE ONE 11/30 1415 DC 11/30 IV 11/30 1416 1415 Lorazepam 0 .STK-MED ONE 11/30 1415 DC .ROUTE Ondansetron HCl 4 MG Q6P PRN 12/01 1100 AC IV Pantoprazole Sodium 40 MG DAILY 12/01 1000 AC 12/01 IV 0858 Promethazine HCl 12.5 MG Q6 PRN 11/30 1430 AC IV 12/07 1429 Promethazine HCl 12.5 MG ONCE ONE 11/30 1415 DC IV 11/30 1416 Promethazine HCl 0 .STK-MED ONE 11/30 1408 DC .ROUTE Promethazine HCl 12.5 MG ONCE ONE 11/30 1330 DC 11/30 IV 11/30 1331 1415 Sodium Chloride 1,000 ML Q10H 11/30 1430 AC 11/30 IV 1724 Sodium Chloride 1,000 ML BOLUS ONE 11/30 1215 DC 11/30 IV 11/30 1314 1242 Last 24 Hrs of Lab/Tai Results Last 24 Hrs of Labs/Mics: Laboratory Tests 12/01/17 0710: Anion Gap 12, Estimated GFR > 60, BUN/Creatinine Ratio 11.4, Hemoglobin A1c Pending, C-React Prot High Sens 2.5, Free T4 0.84, Total T3 1.13, TSH &T3 &Free T4 Intrp 0.897, CBC w Diff NO MAN DIFF REQ, RBC 4.76, MCV 84.9, MCH 28.5, MCHC 33.5, RDW 14.0, MPV 8.7, Gran % 69.8, Lymphocytes % 22.7, Monocytes % 6.2, Eosinophils % 0.9, Basophils % 0.4, Absolute Granulocytes 10.8 H, Absolute Lymphocytes 3.5 H, Absolute Monocytes 1.0 H, Absolute Eosinophils 0.1, Absolute Basophils 0.1, ESR Westergren 3, IgA Pending, Tiss Transglutamin IgG Pending, Tiss Transglutamin IgA Pending, Anti-Gliadin IgG Ab Pending, Anti- Gliadin IgA Ab Pending 11/30/17 1646: Lactic Acid Cancelled 11/30/17 1515: Lactic Acid 0.7 11/30/17 1346: Lactic Acid Cancelled Microbiology 12/01 1210 STOOL: Cryptosporidium Antigen - RECD 12/01 1210 STOOL: Giardia Antigen (TAI) - RECD 12/01 1210 STOOL: Clostridium difficile Toxin A & B - RECD 12/01 1210 STOOL: Stool Culture - RECD 11/30 1500 STOOL: Cryptosporidium Antigen - CAN Cancelled: Cancelled via OE: Per MD Decision 11/30 1500 STOOL: Giardia Antigen (TAI) - CAN Cancelled: Cancelled via OE: Per MD Decision 11/30 1500 STOOL: Clostridium difficile Toxin A & B - CAN Cancelled: Cancelled via OE: Per MD Decision Assessment/Plan Assessment: 39-year-old male with a long history of intermittent abdominal pain, nausea, vomiting, and diarrhea. CT abdomen suggestive of infection or inflammatory colitis. Patient was previously diagnosed cannabinoid hyperemesis syndrome. She also diagnosed previously with gastroparesis. Given the long intermittent feature of his symptom inflammatory bowel disease as a possible explanation. The patient has a chronic leukocytosis. Urine toxicology showed cannabis. Abdominal pain, nausea, and vomiting: Previously evaluated by Dr. Posada 04/2017, cannabis hyperemesis syndrome vs. cyclical nausea & vomiting, possible gastroparesis Continue reglan, zofran prn and supportive treatment GI consulted, appreciate recommendations * Advance diet as tolerated * Continue IVFs * Follow up C. difficile, culture, ova, and parasite * Continue home dose of Ativan, IV for now because of vomiting, change to PO tmrw DVT ppc-Lovenox Clear to full liquid diet Full code Problem List: 1. GERD (gastroesophageal reflux disease) 2. Cannabis dependence 3. Dehydration 4. Cyclical vomiting with nausea 5. Nausea and vomiting in adult patient 6. Gastroparesis 7. Abdominal pain Pain Ratin Pain Location: epigastric Pain Goal: Pain 4 or less Pain Plan: prn Tomorrow's Labs & Rationales: none
[2017-12-01 14:55] VITALS: BP 116/78
--- NOTE | 2017-12-01 16:33 | PN- Gastroenterology ---
Assessment/Plan Assessment/Recommendations: 36 y/o male, non-HTN, non-DM, anxiety, with extensive previous GI workup most suggestive of cannabis hyperemesis syndrome vs. cyclical nausea & vomiting. The patient has known diverticulosis coli without diverticulitis. Additionally, he had a borderline positive gastric scintiscan at 4 hours (*see below), & mild GERD. *The patient had previously been followed for GI by Dr. Posada: 12/27/15: RUQ sono- unremarkable (nl liver, GB, CBD 4 mm, nl visualized pancreas , and nl right kidney. No ascites). 01/24/16: CT AP with IV/po contrast per [facility] (done for abdominal pain, nausea, & vomiting)- Colonic diverticulosis coli without diverticulitis. Mural prominence of duodenum with possible duodenitis, although no appreciable surrounding inflammatory change. No significant gastric distention to suggest gastric outlet obstruction. No bowel obstruction. 02/16/16: Gastric scintiscan- *mild abnormal retention of solid food in the stomach at 4 hours- 17% (normal 0-10%). 02/24/16: EGD to D2-(done for abdominal pain, nausea, vomiting, & dysphagia)- Nonerosive gastritis post biopsies- minimal chronic antral gastritis, HP negative, mild congestion gastric body, HP negative. Grossly normal small bowel folds, esophageal mucosa, and GE junction, post random biopsies. Random duodenal biopsies- negative. Random biopsies GE junction at 40 cm- squamous mucosa with minimal reactive change, without EOE, without Melton's esophagus, & adjacent gastric mucosa with chronic inflammation, H. pylori negative. Random esophageal biopsy-unremarkable squamous mucosa. No retained food seen. 05/02/16: Colonoscopy to [facility] (done for change in bowel habits, r/o IBD)- sigmoid diverticula with an isolated diverticulum in the transverse colon. Multiple internal hemorrhoids. Normal mucosa to the terminal ileum. (A follow-up colonoscopy was advised by age 52, as per current average-risk for colon cancer screening guidelines). 03/07/17: CT AP with IV/po contrast per [facility] (done for abdominal pain, nausea, & vomiting)- No free air. No obstruction. Diffuse diverticulosis without diverticulitis. No acute findings. 1.5 x 0.8 cm indeterminate stable right adrenal nodule, without change since previous CT of 01/24/16. 03/10/17: Multiple abdominal films per ER (done for abdominal pain)- Unremarkable bowel gas pattern. *The patient was last seen in the office by Dr. Posada 04/26/17. At that point, Dr. Posada had tried Reglan, Zofran, & Promethazine without relief. *The differential diagnosis at that point included cannabis hyperemesis syndrome vs. cyclical nausea & vomiting, with perhaps a minimal component of gastroparesis, as the 02/16/16: gastric scintiscan was only borderline abnormal at 17% at 4 hours (normal at 4 hours being 10% or less). *Dr. Posada advised a trial of either SSRI or TCA. *He also mentioned cutting back on the cannabis. At that point, the patient became verbally combative and abusive towards Dr. Posada, insinuating that Dr. Posada thought he was psychiatrically imbalanced. He then gave Dr. Posada a lecture on cannabis, and what he thought about the medical establishment's opinion on it. Dr. Posada advised the patient to seek GI care elsewhere. *Buddy Vuong advised the patient to see Dr. Hua in [place], [place], shortly thereafter, in 05/2017, but the patient did not comply. 04/27/17: CT AP w/o contrast per ER (done for abdominal pain, vomiting, elevated WBC)- No acute abnormality. Mild diverticulosis without diverticulitis. Normal appendix. Moderate amount of stool in colon. No obstruction. No free air. No hernia. No adenopathy. Normal kidneys. At least 4 successive outpt Utox have tested positive for cannabis > 80. *He previously smoked > 1 g pot daily, but then stated he had stopped cannabis for months at a time (*not certain of validity). *It was difficult to accurately say what happened to the patient's GI symptoms when he was allegedly off cannabis. He denied any additional illicit drugs or IVDA. Previous EtOH levels were negative. He claimed he rarely drank EtOH. He denied any significant caffeine intake. He had a > 15 pk yr hx cigarette smoking, currently 1/2 ppd. The patient had persistently normal outpt CBC, LFTs, lipase, GFR, & electrolytes, except for occasional mildly decreased HCO3. When he flares, his leukocytosis was most likely from dehydration. He claimed he had been getting these GI flares since he was a teenager. The patient was previously admitted to [facility] 05/05/16 to 05/06/16, 3 days after his colonoscopy, for intractable nausea, vomiting, & abdominal pain. He had leukocytosis then, with a borderline positive lactate. After IV hydration, his labs normalized. *The patient had been in the [place] ER 11/29/17 for a similar GI flare, and was discharged to home. The patient returned to the [facility] 11/30/17, yet again, arriving 9:47 a.m.NICA from home, complaining of intractable nausea, vomiting, & subjective abdominal pain, described as sharp and bandlike in the epigastric region, "10 out of 10". It was difficult for him to further qualify or quantify his pain. He denied any positional component. He denied any fevers, jaundice or FFI. He claimed he had "chills," as he "felt cold" after he vomited. He claimed the GI symptoms were independent of eating. The symptoms awoke him from sleep early this morning. Upon arrival, BP 124/82, P 88, R 20, T 97, O2 sat RA 100%. He claimed he had 10 episodes of nausea & vomiting, with contents showing bile, but no blood. He then had dry heaves. He denied taking any aspirin or NSAIDs. He noted GERD, without any odynophagia or dysphagia. He claimed he had somewhat chronic early satiety. He denied any weight loss or change in appetite. He had soft bowel movements, with 4 "pudding" bowel movements the day of admission. There was no diarrhea or H2Oery stools. He denied any rectal bleeding or melena. He denied any constipation, obstipation, or tenesmus. Aside from an outbreak of shingles near his left lower lip a couple of weeks ago, he denied any rashes or acute arthralgias. There was no point source by history. There were no sick contacts. He denied any raw food ingestion, recent antibiotics, or recent travel. He claimed he last smoked pot the evening prior to admission. His cannabis levels were again positive. He noted that stress made his symptoms worse. He denied any history of migraine headaches, aura, or neurologic symptoms, but did admit to tension headaches. The patient claimed his last flare of GI symptoms were about 6 months ago. He claimed that sitting in a hot tub made his symptoms better. He had no sx of UTI or URI. He was on outpt Bentyl, Reglan, & Zofran. He denied any EPS side effects from the Reglan. He denied taking any outpt benzodiazepines. He denied any previous abdominal surgery. Regarding the borderline GES, he denied any DM or hypoT4. There was no family history of GI Ca, IBD, PUD, celiac sprue, inherited pancreatitis, or inherited liver disease. The patient's mother had a CCKY for sx gallstones & diverticulosis coli. The patient was given IV NS, Ativan, Reglan, Zofran, & Phenergan in the ER. Although he felt somewhat better after medication, he had leukocytosis and a mildly elevated lactata, in addition to a somewhat abnormal CT (? false positive "colitis & enteritis," due to underdistention of bowel), & he was admitted to General Medicine. 11/30/17: 10:00 a.m.- Admission labs-WBC 20.7 (81% gran/17 gran Ab), H/H 14.9/ 45.3, MCV 84.6, RDW 13.9, PLT 388, glu 118, BUN/Cr 11/0.7, GFR > 60, Na 144, K 3.8, HCO3 16, AG 16, lactate 2.3 -> 0.7, lipase 110, Ca 10.1, albumin 4.9, globulin 2.6, TBil 0.5, alk phos 120, AST 21, ALT 35. 11/30/17: *Utox: > 80 cannabis. 11/30/17: CT ABD & PELVIS WITH IV CONTRAST- Imaging findings are most suggestive of an underlying infectious or inflammatory colitis. There may be an enteritis as well. There is no bowel obstruction and there is no free air. The appendix is normal. There is no adenopathy or ascites. Normal liver, spleen, adrenals, GB, & pancreas. (Please note, the colon was decompressed without po contrast, and therefore may have false positive "wall thickening" without true colitis or enteritis). DICTATED BY: Nate Guajardo MD I personally reviewed the CT with Dr. Helm, of [facility], on 11/30. He agreed that there was a good chance that the above reading was a false positive. *The differential diagnosis for the above again includes cannabis hyperemesis syndrome vs. cyclical nausea & vomiting. The above is superimposed on anxiety, the latter possibly exacerbated by his "upcoming marriage next month". Additionally, he had a borderline positive gastric scintiscan at 4 hours. The patient has known diverticulosis coli, without diverticulitis. He also had mild GERD. The patient has had an extensive GI workup as outlined, including numerous CAT scans, abdominal sono, gastric emptying study, EGD, & colonoscopy, all within the past 2 years. *In fact, I feel that he has had too many CAT scans, including 6 CT AP over the past 2 years (increased radiation). * I do not think the patient has colitis/enteritis, as I feel that his 11/30/17: admission CT AP with IV contrast was falsely positive, *due to underdistention of the colon and small bowel, from lack of po contrast (*Dr. Helm, of [facility], agreed). He had no diarrhea by history. It was very difficult to get a straight answer from the patient as to whether he had stopped cannabis for a significant amount of time. If he truly was off cannabis for at least a few weeks and his symptoms persisted, it would point more to cyclical nausea & vomiting syndrome. He claimed his last GI flare was 6 months ago. Cyclical nausea & vomiting is associated with anxiety/depression about 20% of the time. Additionally, it could be associated with migraine HERNANDEZ, which the patient denied. However, he did admit to tension HERNANDEZ. Cyclical nausea & vomiting syndrome often is associated with a positive tilt table test. The patient has previously had negative random duodenal biopsies for celiac sprue, although I'm not certain he had any serologies for this. I doubt that he has any more obscure diseases, accounting for his symptoms, such as porphyria, angioedema, significant hyperTG, etc. Additionally, DM and/or thyroid disease should be excluded, with the borderline positive gastric scintiscan. The patient was not compliant with a suggested referral to Dr. Hua, as he was no longer followed by Dr. Posada. 12/01/17: *C. difficile toxin A & B- negative. 12/01/17: *stool C&S, Shiga toxin, Crypto Ag, Giardia Ag- pending. 12/01/17: *ESR 3, *nl high sens CRP 2.5 12/01/17: *IgA, tTG Ab, DGP Ab- pending. 12/01/17: WBC 15.5 70% gran/11 grn Ab), H/H 13.6/40.4, MCV 84.9, RDW 14, PLT 334 12/01/17: *HgA1C- pending. 12/01/17: BUN/Cr 8/0.7, GFR > 60, Na 142, K 4.0, HC3 21, AG 12, *nl TFT with nl TSHR 0.897. *As of 12/01/17, the patient remained hemodynamically stable & afebrle, with O2 sat RA 99%. Melatonin was rxd for sleep. He was on Ativan as needed, Phenergan as needed, Zofran as needed, Protonix 40 mg IV daily, prophylactic Lovenox & IV NS @ 100 cc /hr. According to my discussion with his RN, he had no nausea, vomiting or abdominal pain (no analgesics given). He tolerated chicken broth, toast, & pudding. He was resting cmfortably with no complaints. There was no diarrhea. Apparently, a solid BM was sent to the lab.*He wanted to be D/C to home this p.m., as he felt well. *SUGGEST- *May D/C to home 12/01/17, on full liquids po, to be advanced to regular diet. D /C IVF. Would D/C on po Protonix 40 mg daily, Phenergan, & Zofran as needed. Ativan and/or Melatonin per medical team, as needed. Anti-reflux measures. * Await 12/01/17: HgbA1C & celiac panel (i.e.- IgA, tTG Ab, DGP Ab). *Advise outpt MRE, to disprove the admission CT findings of "colitis/enteritis". *Doubt need for repeat scoping, based on lack of diarrhea & relatively recent colonoscopy. * *Strong consideration for SSRI (i.e.- Zoloft) or TCA, per medical team. Advise checking stol for lactoferrin (nl ESR & CRP). 12/01/17: C. diff toxin A & B- negative. *Await 12/01/17: stool C&S, Shiga toxin, Crypto Ag, Giardia Ag- all pending, but no diarrhea. *D/C cannabis & cigarettes, as patient allows! Avoid narcotic analgesics, which could exacerbate "gastroparesis". *Consider outpt Tilt table testing with cardiology & if abnormal, would advise a trial of beta blockers, for possible cyclical nausea 7 vomiting syndrome. Doubt need for more esoteric workup (i.e.- 24 hr urine for porphobilinogen; C3/C4/C1 esterase inhibitor; TG level, etc.). The patient has had persistently normal LFTs, with nl GB on sono/CT (doubt need for outpt HIDA scan with GB EF). Consider outpt referral for food allergy testing. Consider outpt CT head (doubt central source for nausea & vomiting). *Outpt GI follow-up with Dr. Hernando Hua, of [place], [place], whom the patient was supposed to have seen in 05/2017 ( noncompliant), as he had already left our group. The case was discussed with the patient's RN & I left a message with the medical housestaff. Problem List: 1. Cannabinoid hyperemesis syndrome 2. Cyclical vomiting with nausea 3. Abdominal pain 4. Gastroparesis 5. GERD (gastroesophageal reflux disease) 6. Diverticula of colon 7. Leukocytosis Subjective Subjective: 12/01/17: *C. difficile toxin A & B- negative. 12/01/17: *stool C&S, Shiga toxin, Crypto Ag, Giardia Ag- pending. 12/01/17: *ESR 3, *nl high sens CRP 2.5 12/01/17: *IgA, tTG Ab, DGP Ab- pending. 12/01/17: WBC 15.5 70% gran/11 grn Ab), H/H 13.6/40.4, MCV 84.9, RDW 14, PLT 334 12/01/17: *HgA1C- pending. 12/01/17: BUN/Cr 8/0.7, GFR > 60, Na 142, K 4.0, HC3 21, AG 12, *nl TFT with nl TSHR 0.897. *As of 12/01/17, the patient remained hemodynamically stable & afebrle, with O2 sat RA 99%. Melatonin was rxd for sleep. He was on Ativan as needed, Phenergan as needed, Zofran as needed, Protonix 40 mg IV daily, prophylactic Lovenox & IV NS @ 100 cc /hr. According to my discussion with his RN, he had no nausea, vomiting or abdominal pain (no analgesics given). He tolerated chicken broth, toast, & pudding. He was resting cmfortably with no complaints. There was no diarrhea. Apparently, a solid BM was sent to the lab. He wanted to be D/C to home this p.m., as he felt well. Review of Systems: Full 14 point ROS otherwise noncontributory, and as above. Review of Systems Constitutional: Reports: chills (only after vomiting)-> resolved. Denies: diaphoresis, fever, malaise, weakness, unexplained weight loss. EENTM: Denies: blurred vision, double vision, visual changes, eye pain, eye drainage, eye tearing, icterus, ear discharge, ear pain, ear redness, hearing changes, nasal congestion, epistaxis, nasal pain, throat pain, throat swelling, mouth pain, tooth pain. Cardiovascular: Denies: chest pain, edema, orthopena, palpitations, peripheral edema, syncope. Respiratory: Denies: cough, hemoptysis, orthopnea, short of breath, sputum production, stridor, wheezing. GI: Reports: abdominal pain, nausea, vomiting-> *all resolved. Denies: bloating, constipation, diarrhea, distention, bowel incontinence, melena , bloody stool, changes in stool, steatorrhea. Genitourinary: Denies: discharge, dysuria, frequency, hematuria, hesitation, nocturia, pain, urgency. Musculoskeletal: Denies: back pain, gout, joint pain, joint swelling, muscle pain, muscle stiffness, neck pain. Skin: Denies: cysts, change in skin color, change in hair/nails, dryness, erythema, jaundice, lesions, lymphangitis, lumps, moles, rash. Neurological/Psychological: Reports: anxiety, emotional problems ("stress"). Denies: ataxia, cognitive dysfunction, confusion, depressed, dementia, headache, numbness, paresthesia, pre-existing deficit, petit mal seizures, tingling, tremors, tonic-clonic seizures, unable to move lower ext, unable to move upper ext, weakness. Hematologic/Endocrine: Denies: bruising, bleeding, polyuria, polydipsia. Immunologic/Allergic: Denies: splenectomy, HIV/AIDS, lymphadenopathy. All Other Systems: Reviewed and Negative. Objective Vital Signs and I&Os Vital Signs Date Time Temp Pulse Resp B/P B/P Pulse O2 O2 Flow FiO2 Mean Ox Delivery Rate 12/01 1455 98.4 72 20 116/78 99 12/01 0717 97.7 84 18 96/54 98 11/30 2150 98.3 76 18 102/76 96 Room Air 11/30 1713 98.0 86 18 130/90 98 Room Air Intake & Output 12/01 1600 12/01 0400 11/30 1600 11/30 0400 11/29 1600 11/29 0400 Intake Total 2200 1000 Output Total Balance 2200 1000 Intake, IV 1600 1000 Intake, Oral 600 Number 1 Bowel Movements Patient 168 lb 160 lb Weight Weight Reported by Patient Measurement Method Physical Exam: Well-developed, well-nourished, less anxious male, resting comfortably, in no apparent distress. Non-toxic appearing. Sclera anicteric. Conjunctiva pink. Oropharynx clear. Mucus membranes no longer dry. No oral thrush. No aphthous ulcers. There is no adenopathy, thyromegaly, or JVD. No peripheral stigmata of inflammatory bowel disease or chronic liver disease on exam. No spiders on the anterior chest wall. No gynecomastia. No CVA tenderness. No spine tenderness. Lungs: clear to A&P. No wheezing, rales, or rhonchi. Heart exam: regular rate rhythm, S1 and S2, without any murmur. Abdominal exam: normal bowel sounds, soft belly, nontender, without guarding or rebound. No mass. No organomegaly. Negative Nunn sign. No fluid shift. No pulsatile mass. No epigastric bruit. Digital rectal exam: refused by patient ("done at 05/02/16: colonoscopy"). Extremities: without C, C, or E. No rash. Resolved zoster left lower lip. No acute arthropathy. No palmar erythema. No Dupuytren's contractures. No palpable cords. Distal pulses 2+ bilaterally. DTRs 2+ bilaterally. Right handed. Alert & oriented x 3. Motor 5/5 B/L. No focal deficits, but a detailed exam for peripheral neuropathy was deferred. No tremor. No asterixis. No cogwheeling ( currently off Reglan). Current Medications: Current Medications Sig/Jose J Start time Last Medication Dose Route Stop Time Status Admin Enoxaparin Sodium 40 MG DAILY 11/30 1428 AC SC Lorazepam 0.5 MG Q12 PRN 11/30 1500 AC IV Melatonin 5 MG AT BEDTIME 12/01 2200 AC PO Ondansetron HCl 4 MG Q6P PRN 12/01 1100 AC IV Pantoprazole Sodium 40 MG DAILY 12/01 1000 AC 12/01 IV 0858 Promethazine HCl 12.5 MG Q6 PRN 11/30 1430 AC IV 12/07 1429 Sodium Chloride 1,000 ML Q10H 11/30 1430 AC 12/01 IV 12/01 2028 1505 Results Pertinent Lab Results: Laboratory Tests 12/01 11/30 11/30 0710 1646 1515 Chemistry Sodium (137 - 145 mmol/L) 142 Potassium (3.5 - 5.1 mmol/L) 4.0 Chloride (98 - 107 mmol/L) 109 H Carbon Dioxide (22 - 30 mmol/L) 21 L Anion Gap (5 - 16) 12 BUN (9 - 20 mg/dL) 8 L Creatinine (0.7 - 1.2 mg/dL) 0.7 Estimated GFR (>60 ml/min) > 60 BUN/Creatinine Ratio (7 - 25 %) 11.4 Hemoglobin A1c (4.2 - 5.8 %) Pending Lactic Acid (0.7 - 2.1 mmol/L) Cancelled 0.7 C-React Prot High Sens (1.0 - 3.0 mg/L) 2.5 Free T4 (0.79 - 2.35 ng/dL) 0.84 Total T3 (0.97 - 1.69 ng/mL) 1.13 TSH &T3 &Free T4 Intrp (0.27 - 4.20 uIU/mL) 0.897 Hematology CBC w Diff NO MAN DIFF REQ WBC (4.8 - 10.8 /CUMM) 15.5 H RBC (4.70 - 6.10 /CUMM) 4.76 Hgb (14.0 - 18.0 G/DL) 13.6 L Hct (42 - 52 %) 40.4 L MCV (80.0 - 94.0 FL) 84.9 MCH (27.0 - 31.0 PG) 28.5 MCHC (33.0 - 37.0 G/DL) 33.5 RDW (11.5 - 14.5 %) 14.0 Plt Count (130 - 400 /CUMM) 334 MPV (7.4 - 10.4 FL) 8.7 Gran % (42.2 - 75.2 %) 69.8 Lymphocytes % (20.5 - 51.1 %) 22.7 Monocytes % (1.7 - 9.3 %) 6.2 Eosinophils % (0 - 5 %) 0.9 Basophils % (0.0 - 2.0 %) 0.4 Absolute Granulocytes (1.4 - 6.5 /CUMM) 10.8 H Absolute Lymphocytes (1.2 - 3.4 /CUMM) 3.5 H Absolute Monocytes (0.10 - 0.60 /CUMM) 1.0 H Absolute Eosinophils (0.0 - 0.7 /CUMM) 0.1 Absolute Basophils (0.0 - 0.2 /CUMM) 0.1 ESR Westergren (0 - 10 MM) 3 Immunology IgA Pending Tiss Transglutamin IgG Pending Tiss Transglutamin IgA Pending Anti-Gliadin IgG Ab Pending Anti-Gliadin IgA Ab Pending 11/30 11/30 1346 1243 Chemistry Lactic Acid Cancelled Toxicology Urine Opiates Screen (>2000 NG/ML) < 100.00 Methadone Screen (>300 NG/ML) < 40 Barbiturate Screen (>200 NG/ML) < 60 Ur Phencyclidine Scrn (>25 NG/ML) < 6.00 Amphetamines Screen (>1000 NG/ML) < 100 U Benzodiazepines Scrn (>200 NG/ML) < 85 Urine Cocaine Screen (>300 NG/ML) < 50 Urine Cannabis Screen (>50 NG/ML) > 80.00 H 11/30 1000 Chemistry Sodium (137 - 145 mmol/L) 144 Potassium (3.5 - 5.1 mmol/L) 3.8 Chloride (98 - 107 mmol/L) 111 H Carbon Dioxide (22 - 30 mmol/L) 16 L Anion Gap (5 - 16) 16 BUN (9 - 20 mg/dL) 11 Creatinine (0.7 - 1.2 mg/dL) 0.7 Estimated GFR (>60 ml/min) > 60 BUN/Creatinine Ratio (7 - 25 %) 15.7 Glucose (65 - 99 mg/dL) 118 H Lactic Acid (0.7 - 2.1 mmol/L) 2.3 H Calcium (8.4 - 10.2 mg/dL) 10.1 Total Bilirubin (0.2 - 1.3 mg/dL) 0.5 AST (17 - 59 U/L) 21 ALT (21 - 72 U/L) 35 Alkaline Phosphatase (< 127 U/L) 120 Total Protein (6.3 - 8.2 g/dL) 7.5 Albumin (3.5 - 5.0 g/dL) 4.9 Globulin (1.9 - 4.2 gm/dL) 2.6 Albumin/Globulin Ratio (1.1 - 2.2 %) 1.9 Lipase (23 - 300 U/L) 110 Hematology CBC w Diff MAN DIFF ORDERED WBC (4.8 - 10.8 /CUMM) 20.7 H RBC (4.70 - 6.10 /CUMM) 5.35 Hgb (14.0 - 18.0 G/DL) 14.9 Hct (42 - 52 %) 45.3 MCV (80.0 - 94.0 FL) 84.6 MCH (27.0 - 31.0 PG) 27.8 MCHC (33.0 - 37.0 G/DL) 32.9 L RDW (11.5 - 14.5 %) 13.9 Plt Count (130 - 400 /CUMM) 388 MPV (7.4 - 10.4 FL) 8.5 Gran % (42.2 - 75.2 %) 81.4 H Lymphocytes % (20.5 - 51.1 %) 13.5 L Monocytes % (1.7 - 9.3 %) 3.6 Eosinophils % (0 - 5 %) 0.9 Basophils % (0.0 - 2.0 %) 0.6 Absolute Granulocytes (1.4 - 6.5 /CUMM) 16.8 H Absolute Lymphocytes (1.2 - 3.4 /CUMM) 2.8 Absolute Monocytes (0.10 - 0.60 /CUMM) 0.7 H Absolute Eosinophils (0.0 - 0.7 /CUMM) 0.2 Absolute Basophils (0.0 - 0.2 /CUMM) 0.1 Platelet Estimate (ADEQUATE) ADEQUATE Normocytic RBCs VERIFIED Normochromic RBCs VERIFIED Imaging/Other Studies: 11/30/17: CT ABD & PELVIS WITH IV CONTRAST- Imaging findings are most suggestive of an underlying infectious or inflammatory colitis. There may be an enteritis as well. There is no bowel obstruction and there is no free air. The appendix is normal. There is no adenopathy or ascites. Normal liver, spleen, adrenals, GB, & pancreas. (Please note, the colon was decompressed without po contrast, and therefore may have false positive "wall thickening" without true colitis or enteritis). DICTATED BY: Nate Guajardo MD I personally reviewed the CT with Dr. Helm, of [facility], on 11/30. He agreed that there was a good chance that the above reading was a false positive.
[2017-12-01 21:48] VITALS: BP 108/60
[2017-12-02 07:05] VITALS: BP 122/76
[2017-12-02 08:10] LABS: ABSOLUTE BASOPHIL COUNT 0.1 /CUMM (0.0-0.2); ABSOLUTE EOSINOPHIL COUNT 0.3 /CUMM (0.0-0.7); ABSOLUTE GRANULOCYTE CT 5.5 /CUMM (1.4-6.5); ABSOLUTE LYMPH COUNT 3.6 /CUMM (1.2-3.4); ABSOLUTE MONOCYTE COUNT 0.8 /CUMM (0.10-0.60); BASOPHIL % 0.8 % (0.0-2.0); EOSINOPHIL % 2.9 % (0-5); GRANULOCYTE % 53.3 % (42.2-75.2); MEAN CORPUSCULAR HGB 28.6 PG (27.0-31.0); MEAN CORPUSCULAR HGB CONC 33.6 G/DL (33.0-37.0); MEAN CORPUSCULAR VOLUME 85.2 FL (80.0-94.0); PLATELET COUNT 319 /CUMM (130-400); RED BLOOD CELL CT 4.82 /CUMM (4.70-6.10); WHITE BLOOD CELL COUNT 10.3 /CUMM (4.8-10.8)
--- NOTE | 2017-12-02 08:52 | PN- Housestaff ---
Alexia TIWARI,Mustapha 12/02/17 0852: Subjective Follow-up For: Intractable nausea and vomiting Subjective: feels much better, mild nausea overnight but no further vomiting from the day of admission tolerating advanced diet, no complaints of abdominal pain complaining of some phlebitis around the peripheral IV Review of Systems Constitutional: Reports: see HPI. Objective Last 24 Hrs of Vital Signs/I&O Vital Signs Date Time Temp Pulse Resp B/P B/P Pulse O2 O2 Flow FiO2 Mean Ox Delivery Rate 12/02 704 98.0 62 18 122/76 98 12/01 214 98.7 90 18 108/60 98 Room Air 12/01 1455 98.4 72 20 116/78 99 Intake & Output 12/02 1600 12/02 0800 12/02 0000 Intake Total 400 1580 Output Total Balance 400 1580 Intake, IV 400 300 Intake, Oral 1280 Physical Exam General Appearance: Alert, Oriented X3, Cooperative, No Acute Distress Cardiovascular: Regular Rate, Normal S1, Normal S2, No Murmurs Lungs: Clear to Auscultation, Normal Air Movement Abdomen: Normal Bowel Sounds, Soft, No Tenderness, No Masses Extremities: No Clubbing, No Cyanosis, No Edema, Normal Pulses Current Medications: Current Medications Sig/Jose J Start time Last Medication Dose Route Stop Time Status Admin Enoxaparin Sodium 40 MG DAILY 11/30 1428 DCD SC Lorazepam 0.5 MG BID PRN 12/02 0900 DCD PO 12/09 0859 Lorazepam 0.5 MG Q12 PRN 11/30 1500 DC IV Melatonin 5 MG AT BEDTIME 12/01 2200 DCD 12/01 PO 1959 Metoclopramide HCl 10 MG Q4P PRN 12/02 09 DCD PO Omeprazole 40 MG DAILY AC 12/03 0700 DCD PO Ondansetron HCl 4 MG Q4P PRN 12/02 0900 DCD PO Ondansetron HCl 4 MG Q6P PRN 12/01 1100 DC IV Pantoprazole Sodium 40 MG DAILY 12/01 1000 DC 12/01 IV 0858 Promethazine HCl 12.5 MG Q6 PRN 11/30 1430 DC 12/02 IV 12/07 1429 0627 Sodium Chloride 1,000 ML Q10H 11/30 1430 DC 12/02 IV 12/01 2028 0045 Zolpidem Tartrate 5 MG ONCE ONE 12/01 2144 DC 12/01 PO 12/01 2145 2156 Last 24 Hrs of Lab/Tai Results Last 24 Hrs of Labs/Mics: Laboratory Tests 12/02/17 0705: CBC w Diff NO MAN DIFF REQ, RBC 4.82, MCV 85.2, MCH 28.6, MCHC 33.6, RDW 14.0, MPV 9.0, Gran % 53.3, Lymphocytes % 34.9, Monocytes % 8.1, Eosinophils % 2.9, Basophils % 0.8, Absolute Granulocytes 5.5, Absolute Lymphocytes 3.6 H, Absolute Monocytes 0.8 H, Absolute Eosinophils 0.3, Absolute Basophils 0.1 Assessment/Plan Assessment: 39-year-old male with a long history of intermittent abdominal pain, nausea, vomiting, and diarrhea. CT abdomen suggestive of infection or inflammatory colitis. Patient was previously diagnosed cannabinoid hyperemesis syndrome. She also diagnosed previously with gastroparesis. Given the long intermittent feature of his symptom inflammatory bowel disease as a possible explanation. The patient has a chronic leukocytosis. Urine toxicology showed cannabis. Abdominal pain, nausea, and vomiting: Previously evaluated by Dr. Posada 04/2017, cannabis hyperemesis syndrome vs. cyclical nausea & vomiting, possible gastroparesis Continue reglan, zofran prn and supportive treatment GI consulted, appreciate recommendations Advance diet as tolerated C. difficile, culture, ova, and parasite negative Discharge with PO reglan and zofran DVT ppx-Lovenox Full liquid diet Full code Problem List: 1. Cyclical vomiting with nausea 2. Vomiting 3. Abdominal pain 4. Gastroparesis 5. Nausea and vomiting Pain Ratin Pain Location: n/a Pain Goal: Pain 4 or less Pain Plan: prn Tomorrow's Labs & Rationales: none, discharge Eric Solis MD 12/02/17 1204: Attending MD Review Statement Attending Statement Attending MD Statement: examined this patient, discuss w/resident/PA/AUDIT PRACTICE INTERN, agreed w/resident/PA/AUDIT PRACTICE INTERN, reviewed EMR data (avail) Attending Assessment/Plan: Back to baseline, stable for discharge
[2017-12-02] MEDS ORDERED: PROTONIX40 M3 PO (08:56)
--- NOTE | 2017-12-02 08:57 | Patient Discharge Instructions ---
Discharge Instructions General Discharge Information You were seen/treated for: nausea and vomiting Special Instructions: Please follow up with your primary care physician and tag marker within 2 weeks of discharge Acute Coronary Syndrome Inclusion Criteria At DC or during hospital stay patient has or had the following: ACS DIAGNOSIS No Discharge Core Measures Meds if any: Prescribed or Continued at Discharge Meds if any: NOT Prescribed or Continued at Discharge Congestive Heart Failure Inclusion Criteria At DC or during hospital stay patient has or had the following: CHF DIAGNOSIS No Discharge Core Measures Meds if any: Prescribed or Continued at Discharge Meds if any: NOT Prescribed or Continued at Discharge Cerebrovascular accident Inclusion Criteria At DC or during hospital stay patient has or had the following: CVA/TIA Diagnosis No Discharge Core Measures Meds if any: Prescribed or Continued at Discharge Meds if any: NOT Prescribed or Continued at Discharge Venous thromboembolism Inclusion Criteria VTE Diagnosis No VTE Type NONE VTE Confirmed by (Test) NONE Discharge Core Measures - Per Current guidelines, there needs to be overlap - treatment for the first 5 days of Warfarin therapy. - If discharged on Warfarin prior to 5 days of - overlap therapy, the patient will need to be - assessed for post discharge needs including - *Post discharge parental anticoagulation - *Warfarin and/or parental anticoagulation education - *Follow up date to check INR post discharge At least 5 days overlap therapy as Inpatient No Meds if any: Prescribed or Continued at Discharge Note: Overlap Therapy is Warfarin and Anticoagulant Meds if any: NOT Prescribed or Continued at Discharge
[2017-12-02] MEDS ORDERED: ZOFRAN4 M2 PO (09:10)
[2017-12-02] MEDS ORDERED: REGLAN10 M1 PO (09:10)
--- NOTE | 2017-12-02 11:11 | Discharge Summary ---
Visit Information Visit Dates Admission Date: 11/30/17 Discharge Date: 12/02/17 Hospital Course Course Attending Physician: Eric Solis MD Primary Care Physician: Stalin Booth Hospital Course: 36 year old male smoker with no known past medical history other than mild GERD, self reported anxiety and self medication with marijuana with repeated admissions for intractable nausea, vomiting and abdominal pain presented with the same complaints after a recent discharge. The patient has had an extensive previous workup by Dr. Posada (gastroenterology) including repeated CT scans, abdominal ultrasound, gastric emptying study, EGD, and colonoscopy all performed within the past 2 years. These tests showed mild gastroparesis (based on gastric emptying study), GERD, erosive gastritis on EGD (03/05) and diverticulosis (colonoscopy 05/05). The diagnosis of cannabis hyperemesis syndrome vs. cyclical nausea & vomiting was being managed as an outpatient with reglan, zofran, and phenergan. There was though to be some component of anxiety contributing to his symptom flares and his marijuana use confounds his diagnosis. He had been previously recommended to limit marijuana use and trial an SSRI or TCA. The patient thinks marijuana helps his symptoms and is not contributing to his illness and was not willing to trial the recommended medications. He was therefore referred to further care with Dr. Hernando Hua , of [place], [place]. These recommendations were readdressed this hospitalization. The patient was originally NPO, treated with intravenous fluids and antiemetic medications. He gradually tolerated an advanced diet without further episodes of vomiting. The relationship of marijuana with his symptoms, marijuana cessation, and trialing SSRI/TCA's were discussed. The patient was not willing to trial these medication classes and but was exclusively interested in the medicinal uses of marijuana in particular for his symptoms. He was discharged with instructions to follow up with his primary care physician and a visual display manager of his choice. Allergies: Coded Allergies: codeine (Intermediate, RASH 12/27/15) venom-honey bee (BEE VENOM (HONEY BEE)) (Intermediate, SITE WHERE STUNG SWELLS 05/05/16) Disposition Summary Disposition Principal Diagnosis: Intractable nausea and vomiting Additional Diagnosis: Smoking Marijuana use Discharge Disposition: home or self care Discharge Instructions General Discharge Information Code Status: Full Code Patient's Diet: Regular diet as tolerated Patient's Activity: No limitations Follow-Up Instructions/Appts: Please follow up with your primary care physician and visual display manager. Medications at Discharge Discharge Medications: Continue taking these medications: Dicyclomine HCl (Dicyclomine HCl) 10 MG CAPSULE 1 Capsule ORAL THREE TIMES DAILY Comments: NOT GIVEN THIS ADMISSION Ondansetron HCl (Zofran) 4 MG TABLET 1 Tablet ORAL Every 6-8 Hours as Needed as needed for NAUSEA Qty = 10 Comments: NOT GIVEN THIS ADMISSION This prescription has been renewed Metoclopramide HCl (Reglan) 10 MG TABLET 1 Tablet ORAL 4 TIMES A DAY as needed for NAUSEA Qty = 12 Comments: NOT GIVEN THIS ADMISSION This prescription has been renewed Start taking the following new medications: Pantoprazole Sodium (Protonix) 40 MG TABLET.DR 1 Tablet ORAL DAILY Qty = 30 No Refills Comments: NOT STARTED IN HOSPITAL PROTONIX GIVEN VIA INTRAVENOUS Copies To: Stalin Booth; Richard Gay MD Attending Review Statement Documenting Attending: Eric Solis MD Medications at Discharge Discharge Medications: Continue taking these medications: Dicyclomine HCl (Dicyclomine HCl) 10 MG CAPSULE 1 Capsule ORAL THREE TIMES DAILY Comments: NOT GIVEN THIS ADMISSION Ondansetron HCl (Zofran) 4 MG TABLET 1 Tablet ORAL Every 6-8 Hours as Needed as needed for NAUSEA Qty = 10 Comments: NOT GIVEN THIS ADMISSION This prescription has been renewed Metoclopramide HCl (Reglan) 10 MG TABLET 1 Tablet ORAL 4 TIMES A DAY as needed for NAUSEA Qty = 12 Comments: NOT GIVEN THIS ADMISSION This prescription has been renewed Start taking the following new medications: Pantoprazole Sodium (Protonix) 40 MG TABLET.DR 1 Tablet ORAL DAILY Qty = 30 No Refills Comments: NOT STARTED IN HOSPITAL PROTONIX GIVEN VIA INTRAVENOUS Copies To: Stalin Booth; Richard Gay MD Attending Review Statement Documenting Attending: Eric Solis MD
== END 2017-12-02 10:56 | DRG 54 ==
LOC: ERH 09:47 → 2NB 14:18 → ERHI 14:18 → CANRESERV 15:04 → ENRESERV 15:04 → ENTRNSPT 16:37 → EDTRNSPTSTS 16:51 → 2NB 17:05 → EDTRNSPT 17:12 → CMPTRNSPT 17:15 → 2NB 12-02 08:56
PROVIDERS: Physician Assistant Medical
DX: G43.A1 Cyclical vomiting, in migraine, intractable (principal); K21.9 Gastro-esophageal reflux disease without esophagitis; E86.0 Dehydration; K31.84 Gastroparesis; F12.988 Cannabis use, unspecified with other cannabis-induced disorder; K57.90 Diverticulosis of intestine, part unspecified, without perforation or abscess without bleeding
CPT/HCPCS: 2NBP; 36415; 74177; 80307; 82436; 87045; 87328; 87329; 96361; 96374; 96375; 96376; J1650; J2405; J2550; J2765; J3101

== ENCOUNTER 2017-12-04 12:51 | Emergency (ER) | payer OTHER ==
[~2017-12-04] VITALS: Ht 177.8 cm; Wt 72.6 kg
[~2017-12-04 12:51] MED LIST changes: +DICYCLOMINE HCL10 M1 PO
[2017-12-04 13:02] VITALS: BP 1021/80
== END 2017-12-04 13:16 | disposition admitted as inpatient to this hospital (09) ==
LOC: ERH 12:51
DX: R10.9 Unspecified abdominal pain (principal)

== ENCOUNTER 2017-12-31 08:37 | Inpatient (IN) | payer OTHER ==
[~2017-12-31] VITALS: Ht 177.8 cm; Wt 73.0 kg
[2017-12-31 09:25] LABS: ABSOLUTE BASOPHIL COUNT 0 /CUMM (0.0-0.2); ABSOLUTE EOSINOPHIL COUNT 0.3 /CUMM (0.0-0.7); ABSOLUTE GRANULOCYTE CT 17.7 /CUMM (1.4-6.5); ABSOLUTE MONOCYTE COUNT 0.8 /CUMM (0.10-0.60); BASOPHIL % 0.2 % (0.0-2.0); EOSINOPHIL % 1.5 % (0-5); HEMATOCRIT 46.7 % (42-52); MEAN CORPUSCULAR HGB 28.5 PG (27.0-31.0); MEAN CORPUSCULAR HGB CONC 33.5 G/DL (33.0-37.0); MEAN CORPUSCULAR VOLUME 85.1 FL (80.0-94.0); MEAN PLATELET VOLUME 8.4 FL (7.4-10.4); PLATELET COUNT 372 /CUMM (130-400); RBC DISTRIBUTION WIDTH 14.3 % (11.5-14.5); RED BLOOD CELL CT 5.49 /CUMM (4.70-6.10); WHITE BLOOD CELL COUNT 21.8 /CUMM (4.8-10.8)
[2017-12-31 09:33] LABS: GRANULOCYTE % 81.1 % (42.2-75.2)
--- NOTE | 2017-12-31 10:27 | ED GI/GU/ABDOMINAL COMPLAINT ---
History of Present Illness General Chief Complaint: Abdominal Pain/Flank Pain Stated Complaint: ABD PAIN Source: patient, old records Exam Limitations: no limitations Vital Signs & Intake/Output Vital Signs & Intake/Output Vital Signs Date Time Temp Pulse Resp B/P B/P Pulse O2 O2 Flow FiO2 Mean Ox Delivery Rate 01/01 0627 98.5 93 20 112/58 99 Room Air ED Intake and Output 01/02 0000 01/01 1200 Intake Total 200 Output Total Balance 200 Intake, Oral 200 Patient 161 lb Weight Allergies Coded Allergies: codeine (Intermediate, RASH 12/27/15) venom-honey bee (BEE VENOM (HONEY BEE)) (Intermediate, SITE WHERE STUNG SWELLS 05/05/16) Reconcile Medications Dicyclomine HCl 10 MG CAPSULE 1 CAP PO TID GI (Reported) Metoclopramide HCl (Reglan) 10 MG TABLET 1 TAB PO 4 TIMES/DAY PRN NAUSEA Ondansetron HCl (Zofran) 4 MG TABLET 1 TAB PO Q6-8P PRN NAUSEA Pantoprazole Sodium (Protonix) 40 MG TABLET.DR 1 TAB PO DAILY GI Triage Note: PT STATES HE HAS BEEN HAVING ABD PAIN AND VOMITING "EVERY DAY, IT NEVER ENDS" STATES THAT HE HAS DIVERTICULOSIS, GATSROPARESIS, AND COLITIS, AND THEY ARE ALL BOTHERING HIM. Triage Nurses Notes Reviewed? yes Onset: Gradual Duration: day(s): Timing: remote history Quality/Severity: moderate Location: generalized abdomen Prior Abdominal Problems: similar symptoms HPI: 37yo male with hx of gastroporesis, diverticulosis, cannibis abuse presents to ED complaining of nausea, vomiting, diarrhea, generalized abdominal pain beginning 3 days ago. Patient states that he has not been able to keep anything down, he is unable to take his medications. Patient ran out of Zofran, he has tried Reglan however is not able to keep it down. Patient is daily marijuana smoker. This patient has seen different gastroenterologists, recently saw GI specialist through [facility], is scheduled for follow-up appointment later this month. Patient has had similar symptoms in the past. Patient also reporting generalized chills. Patient denies fevers, urinary symptoms. (Ema GUZMAN,Stpeh Valle) Past History Travel History Traveled to [place] past 21 day No Medical History Any Pertinent Medical History? 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 Age 59. FATHER, Age 57. BROTHER, Age 31. SISTER (OBESE). Age 32. Hx Contributory? No (Steph Turner) Review of Systems Review of Systems Constitutional: Reports: see HPI. EENTM: Reports: no symptoms. Respiratory: Reports: no symptoms. Cardiovascular: Reports: no symptoms. GI: Reports: see HPI. Genitourinary: Reports: no symptoms. Musculoskeletal: Reports: no symptoms. Skin: Reports: no symptoms. Neurological/Psychological: Reports: no symptoms. Hematologic/Endocrine: Reports: no symptoms. Immunologic/Allergic: Reports: no symptoms. All Other Systems: Reviewed and Negative (Steph Turner) Physical Exam Physical Exam General Appearance: well developed/nourished, no apparent distress, alert, awake Head: atraumatic, normal appearance Eyes: Bilateral: normal appearance. Ears, Nose, Throat, Mouth: hearing grossly normal Neck: normal inspection, supple, full range of motion Respiratory: normal breath sounds, no respiratory distress, lungs clear Cardiovascular: regular rate/rhythm Gastrointestinal: normal bowel sounds, soft, no organomegaly, left upper and left lower quadrant tenderness without gaurding Back: normal inspection, normal range of motion Extremities: normal range of motion Neurologic/Psych: awake, alert, oriented x 3 Skin: intact, normal color Core Measures ACS in differential dx? No Sepsis Present: No Sepsis Focused Exam Completed? No (Steph Turner) Progress Differential Diagnosis: AMI, appendicitis, bowel obstruction, diverticulitis, gastritis, pancreatitis, peptic ulcer, PUD/GERD, SBO, UTI/pyelo, gastroporesis, polysubstance abuse, cannibis abuse, cyclic vomiting syndrome, drug withdrawal Plan of Care: Orders Procedure Date/time Status Regular Diet 01/01 L Active Full Liquid Diet 01/01 B Complete House Staff 01/01 0732 Active Change service to 01/01 0732 Active Discharge Patient 01/01 UNK Active Laboratory Tests 01/01/18 0655: Anion Gap 9, Estimated GFR > 60, BUN/Creatinine Ratio 11.7, CBC w Diff NO MAN DIFF REQ, RBC 4.52 L, MCV 86.3, MCH 29.0, MCHC 33.6, RDW 14.4, MPV 9.2, Gran % 63.0, Lymphocytes % 27.9, Monocytes % 7.2, Eosinophils % 1.4, Basophils % 0.5, Absolute Granulocytes 9.4 H, Absolute Lymphocytes 4.1 H, Absolute Monocytes 1.1 H, Absolute Eosinophils 0.2, Absolute Basophils 0.1 10:22 AM - patient is still unable to give a urine specimen. Patient states he has not urinated 2 days. Patient states that if we are drug testing and he will isaías us. Attempts with IV Zofran, Phenergan, Reglan, Benadryl have been accepted however patient is still retching and vomiting here in the emergency department. Patient tried ice chips however was unable to tolerate PO. Patient has leukocytosis out of her old labs reveal history of leukocytosis, previous CT scan was done last month. Patient is currently afebrile. Will recheck CBC following IV fluids prior to obtaining additional CT imaging. Discussed this patient with case management. For full admission to general medicine for intractable vomiting. Patient requires IV fluids, IV antiemetics, GI consult. Initial ED EKG: none (Ema GUZMAN,Steph Valle) Departure Departure Disposition: STILL A PATIENT Condition: Stable Clinical Impression Primary Impression: Nausea vomiting and diarrhea Secondary Impressions: Cannabis abuse Cyclical vomiting, intractable Qualifiers: Nausea presence: with nausea Qualified Code: G43.A1 - Cyclical vomiting, intractable Leukocytosis Qualifiers: Leukocytosis type: unspecified Qualified Code: D72.829 - Elevated white blood cell count, unspecified Referrals: Carolann DALY,Stalin Lee (PCP/Family) Departure Forms: Customer Survey General Discharge Information Admission Note Spoke With: Eric Solis MD Documentation of Exam: Documentation of any treatments & extenuating circumstances including Concerns Regarding Discharge (functional status, medication knowledge or non-compliance, living conditions, etc.) that warrant an admission rather than observation: [ Patient with intractable cyclic vomiting syndrome requiring IV fluids, IV antiemetics, gastroenterology consult, this patient is not tolerating PO, unsafe to discharge at this time. Leukocytosis requiring repeat labs, possible CT imaging.] (Ema GUZMAN,Steph Valle) PA/CRISIS MENTAL HEALTH THERAPIST Co-Sign Statement Statement: ED Attending supervision documentation- [X] I saw and evaluated the patient. I have also reviewed all the pertinent lab results and diagnostic results. I agree with the findings and the plan of care as documented in the PA's/CRISIS MENTAL HEALTH THERAPIST's documentation. [X] I have reviewed the ED Record and agree with the PA's/CRISIS MENTAL HEALTH THERAPIST's documentation. [] Additions or exceptions (if any) to the PAs/CRISIS MENTAL HEALTH THERAPIST's note and plan are summarized below: [] NOT TOLERATING PO. SUSPECT CYCLICAL VOMITING SECONDARY TO MARJIUANA ABUSE. WILL REQUIRE IV FLIUDS, ANTIEMETICS, GI CONSULTATION. (Mary TIWARI,Lena)
--- NOTE | 2017-12-31 17:49 | History & Physical ---
General Information and HPI History of Present Illness: Patient was admitted in 2016 for the same exact presentation, colonoscopy and upper endoscopy was done and relieved diverticulosis and internal hemorrhoids. Allergies/Medications Allergies: Coded Allergies: codeine (Intermediate, RASH 12/27/15) venom-honey bee (BEE VENOM (HONEY BEE)) (Intermediate, SITE WHERE STUNG SWELLS 05/05/16) Home Med list Dicyclomine HCl 10 MG CAPSULE 1 CAP PO TID GI (Reported) Metoclopramide HCl (Reglan) 10 MG TABLET 1 TAB PO 4 TIMES/DAY PRN NAUSEA Ondansetron HCl (Zofran) 4 MG TABLET 1 TAB PO Q6-8P PRN NAUSEA Pantoprazole Sodium (Protonix) 40 MG TABLET.DR 1 TAB PO DAILY GI Past History Travel History Traveled to [place] past 21 day No Medical History Neurological: NONE EENT: NONE Cardiovascular: NONE Respiratory: NONE Gastrointestinal: GERD, GASTROPARESIS (borderline GES at 4 hrs); DIVERTICULOSIS COLI Hepatic: NONE Renal: NONE Musculoskeletal: NONE Psychiatric: anxiety Endocrine: NONE Blood Disorders: NONE Cancer(s): NONE 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 Age 59. FATHER, Age 57. BROTHER, Age 31. SISTER (OBESE). Age 32. Psychosocial History Who Do You Live With? child, fiancee Services at Home: None Primary Language: Tajik Living Will? no Power of Will Call Clerk/HCP? no Functional Ability ADLs Independent: dressing, eating, toileting, bathing. Ambulation: independent IADLs Independent: shopping, housework, finances, food prep, telephone, transportation , medication admin. Assessment/Plan Assessment: 35-year-old gentleman with past medical history of GERD, gastroparesis, diverticulosis, cannabis abuse came to [facility] with complaints of nausea, vomiting, diarrhea, or abdominal pain for the past 3 days. Patient is admitted in general medical curry for further evaluation and management. Admission vitals Temperature 98.5, pulse rate 82, but respiratory rate 18, blood pressure 129/84, saturating 98 at room air. Admission labs WBC 21.8, hemoglobin 15.6, platelet count, sodium 143, potassium 4, chloride 108 , BUN 8, creatinine 0.8, calcium 10.4, AST 16, AST 25, alkaline phosphatase 126, amylase 62, lipase 92 Urine cannabis more than 80. Nuclear medicine gastric emptying study 2016 Abnormal study. There is mild abnormal retention of solid food in the stomach at 4 hours. Assessment and plan 1.cannabinoid hyperemesis syndrome vs. cyclical nausea & vomiting Core Measures/Misc (07/07) Sepsis (View protocol) Sepsis Present: No
--- NOTE | 2017-12-31 18:45 | History & Physical ---
Norman Guevara 12/31/171816: General Information and HPI MD Statement: I have seen and personally examined REJI OLVERA and documented this H&P. The patient is a 37 year old M who presented with a patient stated chief complaint of [interactible nausea and vomitting ]. Source of Information: patient, old records Exam Limitations: no limitations History of Present Illness: Is necessary [id number] man presented at the emergency room complaining of intractable nausea or vomiting. He has significant past medical history of GERD , self-reported anxiety and self-medication with marijuana, all stable episodes of hospital admission for intractable nausea and vomiting with possible diagnosis of cannabis/serotonin hyperemesis syndrome versus clinical nausea or vomiting. He used to follow with Dr. Posada as an outpatient, had an extensive outpatient GI workup including upper GI EGD and colonoscopy in 2015 which showed GERD, erosive gastritis on EGD and diverticulosis without diverticulitis. He also has repeated insignificant abdominal CT scans and abdominal ultrasound and gastric emptying study with indeterminant decrease of gastroparesis. His nausea and vomiting was controlled on combination of Reglan and Phenergan as an outpatient by Dr. Posada. He was recently admitted to [facility] in November 2017 for the same presentation discharged on 12/02/2017. According to patient he did not stop smoking pots last. Last time he smoked pot yesterday. According to patient his nausea and vomiting has not improved compared to prior hospitalization and he has been homebound due to his symptoms. She reports by mouth intolerance, vague and diffuse abdominal pain, frequent yellow color vomitus without bloods; no change in his stool characteristics. Denies any fever, chills, symptoms. Currently he is following up with his drone pilot in [place] and does not want to see any of the [facility] drone pilot. The remainder of the symptomatology is negative so for generalized weakness and fatigue. Allergies/Medications Allergies: Coded Allergies: codeine (Intermediate, RASH 12/27/15) venom-honey bee (BEE VENOM (HONEY BEE)) (Intermediate, SITE WHERE STUNG SWELLS 05/05/16) Home Med list Dicyclomine HCl 10 MG CAPSULE 1 CAP PO TID GI (Reported) Metoclopramide HCl (Reglan) 10 MG TABLET 1 TAB PO 4 TIMES/DAY PRN NAUSEA Ondansetron HCl (Zofran) 4 MG TABLET 1 TAB PO Q6-8P PRN NAUSEA Pantoprazole Sodium (Protonix) 40 MG TABLET. 1 TAB PO DAILY GI Compliance With Home Meds: UNKNOWN Past History Travel History Traveled to [place] past 21 day No Medical History Neurological: NONE EENT: NONE Cardiovascular: NONE Respiratory: NONE Gastrointestinal: GERD, GASTROPARESIS (borderline GES at 4 hrs); DIVERTICULOSIS COLI Hepatic: NONE Renal: NONE Musculoskeletal: NONE Psychiatric: anxiety Endocrine: NONE Blood Disorders: NONE Cancer(s): NONE CORPORATE CONTROLLER/Reproductive: NONE History of MRSA: No History of VRE: No History of CDIFF: No Surgical History Surgical History: ORAL SURGERY Past Family/Social History Family History Relations & Conditions if any MOTHER (DIVERTICULOSIS, post CCKY). Age 59. FATHER, Age 57. BROTHER, Age 31. SISTER (OBESE). Age 32. Psychosocial History Who Do You Live With? child, fiancee Services at Home: None Primary Language: Lebanese Smoking Status: Current Everyday Smoker ETOH Use: denies use Illicit Drug Use: daily marijuana Living Will? no Power of Hem Marker/HCP? no Functional Ability ADLs Independent: dressing, eating, toileting, bathing. Ambulation: independent IADLs Independent: shopping, housework, finances, food prep, telephone, transportation , medication admin. Review of Systems Review of Systems Constitutional: Reports: no symptoms. GI: Reports: abdominal pain, nausea, vomiting. Denies: bloating, constipation, diarrhea, distention, bowel incontinence, melena, bloody stool, changes in stool. Genitourinary: Reports: no symptoms. Musculoskeletal: Reports: joint swelling, muscle stiffness. All Other Systems: Reviewed and Negative Exam & Diagnostic Data Last 24 Hrs of Vital Signs/I&O Vital Signs Date Time Temp Pulse Resp B/P B/P Pulse O2 O2 Flow FiO2 Mean Ox Delivery Rate 12/31 1534 98.5 82 18 131/82 100 Room Air 12/31 1146 88 18 129/84 98 Room Air 12/31 0844 96.0 72 16 133/90 99 Room Air Physical Exam General Appearance Alert, Oriented X3, Cooperative Skin No Rashes, No Breakdown, No Significant Lesion HEENT PERRLA, EOMI Neck No JVD Lymphatic Axillary nl, Cervical nl Cardiovascular Normal S1, Normal S2, No Murmurs Lungs Clear to Auscultation, Normal Air Movement Abdomen Soft, LLQ abdominal tenderness Neurological Normal Speech Extremities No Cyanosis, No Edema Last 24 Hrs of Labs/Tai: Laboratory Tests 12/31/17 1615: Urine Opiates Screen < 100, Methadone Screen 53, Barbiturate Screen < 60, Ur Phencyclidine Scrn < 6.00, Amphetamines Screen < 100, U Benzodiazepines Scrn < 85, Urine Cocaine Screen < 50, Urine Cannabis Screen > 80.00 H, Urine Color YEL , Urine Clarity CLEAR, Urine pH 8.5 H, Ur Specific [place] 1.020, Urine Protein NEG, Urine Ketones NEG, Urine Nitrite NEG, Urine Bilirubin NEG, Urine Urobilinogen 0.2, Ur Leukocyte Esterase NEG, Ur Microscopic EXAM NOT REQUIRED, Urine Hemoglobin NEG, Urine Glucose NEG 12/31/17 0913: Anion Gap 16, Estimated GFR > 60, BUN/Creatinine Ratio 10.0, Glucose 108 H, Calcium 10.4 H, Total Bilirubin 0.4, AST 16 L, ALT 25, Alkaline Phosphatase 126, Total Protein 7.4, Albumin 4.7, Globulin 2.7, Albumin/Globulin Ratio 1.7, Amylase 62, Lipase 92, CBC w Diff MAN DIFF ORDERED, RBC 5.49, MCV 85.1, MCH 28.5 , MCHC 33.5, RDW 14.3, MPV 8.4, Gran % 81.1 H, Lymphocytes % 13.7 L, Monocytes % 3.5, Eosinophils % 1.5, Basophils % 0.2, Absolute Granulocytes 17.7 H, Segmented Neutrophils 93 H, Absolute Lymphocytes 3.0, Lymphocytes 4 L, Monocytes 2, Absolute Monocytes 0.8 H, Eosinophils 1, Absolute Eosinophils 0.3, Absolute Basophils 0, Platelet Estimate ADEQUATE, Normocytic RBCs VERIFIED, Normochromic RBCs VERIFIED Assessment/Plan Assessment: 37-year-old gentleman with past medical history of multiple admissions for intractable nausea vomiting and cannabis abuse was admitted for canabbi/ serotonin hyperemesis syndrome vs clinical nausea or vomiting. Pertinent data Vital signs are stable negative orthostasis. C BC significance leukocytosis with left shift no bandemia; H&H: 15/46, platelets 372, sodium 143, potassium 4 chloride 108 HCO3 20 BUN 8 creatinine 0.8 Magnesium pending EKG is pending UA negative U tox positive for cannabis List of problems for this admission #1 possible cannabis induced hyperemesis versus clinical vomiting #2 substance abuse #3 nicotine dependence #4 mild elevated AGNA; was possibly secondary to intractable nausea in combination with starvation ketoacidosis . no ABG available for interpretation. #5 mild dehydration and hypernatremia #6 leukocytosis without source of infection Plan -Admit to general medical floor -Check magnesium and EKG -IV Reglan 10 mg every 6h as needed for nausea -Phenergan 25 po mg every 4 hour as needed for nausea; max 50 mg -Clear liquid diet -IV Protonix 40 mg daily -Ativan for agitation 2 mg as needed at bedtime for agitation -Patient is very confrontational; does not have any insights to his medical condition request psych consults deemed appropriate by medical attending -D5 normal saline 1000 ML @25 mL per hour -Diphenhydramine 25 mg at bedtime for possible dyskinesia -Watch off antibiotics if patient spikes temperature of more than 100.47 blood cultures and he starts IV antibiotics FC housekeeping order heparin for DVT As Ranked By This Provider Problem List: 1. Cannabis dependence 2. Cannabis abuse 3. Cyclical vomiting, intractable Qualifiers Nausea presence: with nausea Qualified Code: G43.A1 - Cyclical vomiting, intractable 4. Nausea vomiting and diarrhea Core Measures/Misc (07/07) Acute Coronary Syndrome ACS Diagnosis: No Congestive Heart Failure Congestive Heart Failure Diagnosis No Cerebrovascular Accident CVA/TIA Diagnosis: No VTE (View Protocol) VTE Risk Factors Acute Medical Illness No Mechanical VTE Prophylaxis d/t N/A MechProphylax Ordered No VTE Pharm Prophylaxis d/t NA PharmProphylax ordered Sepsis (View protocol) Sepsis Present: No Resident Review Statement Resident Statement: examined this patient, discussed with fall intern, agreed with fall intern, discussed with family, reviewed EMR data (avail), discussed with nursing , discussed with case mgmt, reviewed images, amended to note Ariana Hoffman 01/01/18 0000: Attending MD Review Statement Attending Statement Attending MD Statement: examined this patient, discuss w/resident/PA/FITTER / WELDER, agreed w/resident/PA/FITTER / WELDER, reviewed EMR data (avail), reviewed images, amended to note Attending Assessment/Plan: CC: nausea vomiting abdominal pain PMH: GERD, cyclic vomiting syndrome Patient came to ER for vomiting several times and abdominal pain worsening since last 3 days. Not able to eat or drink anything since then. Patient ran out of his sublingual Zofran, tried to take by mouth Reglan but it did not work because of vomiting, so he came to ER. Denies fever, chills, urinary symptoms, chest pain, blood in the vomiting, black colored stool. Vitals: Afebrile, pulse in 80s, RR 16, blood pressure 133/90, saturating well on room air. On exam: A O 3, cooperative, no acute distress, neck supple, JVD normal, no lymphadenopathy, mucosa moist, no focal neurological deficit, no dependent edema , no obvious skin rashes or inflammation CVS: S1-S2, RRR. RS: Clear to auscultate bilaterally. Abdomen: Soft, NT, ND, bowel sounds present. Assessment and plan 37-year-old male with history significant for GERD, questionable gastroparesis, cyclic vomiting secondary to most likely cannabis hyperemesis syndrome presented in ER for another episode of intractable vomiting, abdominal pain, unable to tolerate by mouth intake including medicine. Examination unremarkable, we will continue supportive care. Patient had been unhappy with previous GI, started to see new drone pilot. He requests sublingual Zofran along with Reglan at the time of discharge. He states that he has to take marijuana for his depression and anxiety, no other medications worked. He denied these symptoms being secondary to marijuana. He tried not using marijuana for 1 year and he still had symptoms. He is not very specific about the episodes and chronicity. He states that "it is always there, I had this since childhood" + Cyclic vomiting syndrome: Questionable cannabis hyperemesis versus migraine + Reactive leukocytosis - Admit to general medicine - Continue gentle hydration - Continue when necessary Zofran sublingual or IV as tolerated, when necessary promethazine dry oral, - scheduled metoclopramide 10 mg IV every 6 - Protonix 40 mg daily - Consider migraine treatment or prophylactic treatment at discharge - DVT prophylaxis - Adequate pain control He requests sublingual Zofran along with Reglan at the time of discharge.
[2017-12-31 22:48] VITALS: BP 122/70
--- NOTE | 2018-01-01 00:10 | Admission Certification ---
Admission Certification Certification Statement - As attending physician, I certify that at the time of - admission, based on clinical presentation, severity of - symptoms, need for further diagnostic testing and - therapeutic interventions, and risk of adverse outcomes - without in-hospital treatment, in my clinical assessment, - this patient requires an acute hospital stay for a minimum - of two nights or longer. I have also considered psychsocial - factors such as support system, advanced age, financial - issues, cognitive issues, and failed out-patient treatments, - past re-admission history, safety of patient, and lack of - compliance as applicable. Specific rationale supporting this admission is: Intractable vomiting, cyclic vomiting syndrome
[2018-01-01 06:27] VITALS: BP 112/58
--- NOTE | 2018-01-01 07:11 | PN- Housestaff ---
Tasha Zepeda MD 01/01/18 0711: Subjective Follow-up For: Cannabis induced nausea and vomiting Complaints: no complaints Subjective: Patient was seen at bedside. He was sitting in his bed comfortably. No overnight events. He denies nausea, vomiting, abdominal pain, headache, chest pain. He wants to get discharge today. Review of Systems Constitutional: Reports: no symptoms. Cardiovascular: Reports: no symptoms. Respiratory: Reports: no symptoms. Gastrointestinal: Reports: no symptoms. Genitourinary: Reports: no symptoms. Musculoskeletal: Reports: no symptoms. Objective Last 24 Hrs of Vital Signs/I&O Vital Signs Date Time Temp Pulse Resp B/P B/P Pulse O2 O2 Flow FiO2 Mean Ox Delivery Rate 01/01 0627 98.5 93 20 112/58 99 Room Air 12/31 2248 98.1 91 20 122/70 98 Room Air 12/31 1825 86 16 134/79 98 Room Air 12/31 1534 98.5 82 18 131/82 100 Room Air 12/31 1146 88 18 129/84 98 Room Air Intake & Output 01/01 1600 01/01 0800 01/01 0000 Intake Total 200 200 Output Total Balance 200 200 Intake, Oral 200 200 Patient 161 lb 160 lb Weight Weight Reported by Patient Measurement Method Physical Exam General Appearance: Alert, Oriented X3, Cooperative, No Acute Distress Skin: No Rashes, No Breakdown HEENT: Atraumatic Cardiovascular: Regular Rate, Normal S1, Normal S2, No Murmurs Lungs: Clear to Auscultation Abdomen: Normal Bowel Sounds, Soft, No Tenderness Neurological: Strength at 5/5 X4 Ext, Normal Tone, Sensation Intact Extremities: No Cyanosis, No Edema, Normal Pulses Current Medications: Current Medications Sig/Jose J Start time Last Medication Dose Route Stop Time Status Admin Acetaminophen 650 MG Q6P PRN 12/31 1900 AC PO Dextrose/Lactated 1,000 ML Q13H 12/31 1745 DC Ringer's IV Dextrose/Sodium 1,000 ML Q13H 12/31 1845 DC 12/31 Chloride IV 2050 Diphenhydramine HCl 25 MG AT BEDTIME PRN 12/31 1830 AC 12/31 IV 2051 Diphenhydramine HCl 0 .STK-MED ONE 12/31 1430 DC .ROUTE Diphenhydramine HCl 50 MG ONCE ONE 12/31 1415 DC 12/31 IV 12/31 1416 1455 Enoxaparin Sodium 40 MG DAILY 12/31 1850 AC SC Metoclopramide HCl 10 MG Q6P PRN 12/31 1745 AC 12/31 IV 205 Metoclopramide HCl 0 .STK-MED ONE 12/31 1430 DC .ROUTE Metoclopramide HCl 10 MG ONCE ONE 12/31 1415 DC 12/31 IV 12/31 1416 1455 Nicotine 14 MG Q24 12/31 1849 AC TOP Oxycodone/ 1 TAB Q6P PRN 12/31 1900 AC 01/01 Acetaminophen PO 0939 Pantoprazole Sodium 0 .STK-MED ONE 12/31 1835 DC IV Pantoprazole Sodium 40 MG DAILY 12/31 1742 AC 01/01 IV 0937 Promethazine HCl 25 MG Q4 PRN 12/31 2000 AC 12/31 PO 01/07 1959 2257 Promethazine HCl 25 MG Q4P PRN 12/31 1745 DC IV 01/07 1744 Promethazine HCl 0 .STK-MED ONE 12/31 1659 DC .ROUTE Promethazine HCl 25 MG ONCE ONE 12/31 1630 DC 12/31 IV 12/31 1631 1702 Sodium Chloride 1,000 ML BOLUS ONE 12/31 1745 DC 12/31 IV 12/31 1844 1803 Sodium Chloride 1,000 ML BOLUS ONE 12/31 1630 DC 12/31 IV 12/31 1729 1652 Last 24 Hrs of Lab/Tai Results Last 24 Hrs of Labs/Mics: Laboratory Tests 01/01/18 0655: Anion Gap 9, Estimated GFR > 60, BUN/Creatinine Ratio 11.7, CBC w Diff NO MAN DIFF REQ, RBC 4.52 L, MCV 86.3, MCH 29.0, MCHC 33.6, RDW 14.4, MPV 9.2, Gran % 63.0, Lymphocytes % 27.9, Monocytes % 7.2, Eosinophils % 1.4, Basophils % 0.5, Absolute Granulocytes 9.4 H, Absolute Lymphocytes 4.1 H, Absolute Monocytes 1.1 H, Absolute Eosinophils 0.2, Absolute Basophils 0.1 12/31/17 1615: Urine Opiates Screen < 100, Methadone Screen 53, Barbiturate Screen < 60, Ur Phencyclidine Scrn < 6.00, Amphetamines Screen < 100, U Benzodiazepines Scrn < 85, Urine Cocaine Screen < 50, Urine Cannabis Screen > 80.00 H, Urine Color YEL , Urine Clarity CLEAR, Urine pH 8.5 H, Ur Specific [place] 1.020, Urine Protein NEG, Urine Ketones NEG, Urine Nitrite NEG, Urine Bilirubin NEG, Urine Urobilinogen 0.2, Ur Leukocyte Esterase NEG, Ur Microscopic EXAM NOT REQUIRED, Urine Hemoglobin NEG, Urine Glucose NEG Assessment/Plan Assessment: 37-year-old gentleman with past medical history of multiple admissions for intractable nausea vomiting and cannabis abuse was admitted for canabbi/ serotonin hyperemesis syndrome vs clinical nausea or vomiting. List of problems for this admission #1 possible cannabis induced hyperemesis versus clinical vomiting #2 substance abuse #3 nicotine dependence Plan Will continue Reglan, Phenergan. We will advance his diet to full liquid and if he tolerates we'll convert to regular diet. Patient denies agitation, nausea, vomiting, abdominal pain. He insists on discharge to home today. His vital stable. His WBC count decreased from 21-14.9 assuming secondary due to hemoconcentration. If patient tolerates by mouth intake he is a possible discharge to home today. FC heparin for DVT Problem List: 1. Cannabis dependence 2. GERD (gastroesophageal reflux disease) 3. Gastroparesis Pain Ratin Pain Location: none Pain Goal: Remain pain free Pain Plan: tylenol Tomorrow's Labs & Rationales: none Peyton Marquez 01/01/18 1135: Attending MD Review Statement Attending Statement Attending MD Statement: examined this patient, discuss w/resident/PA/TIMING INSPECTOR, agreed w/resident/PA/TIMING INSPECTOR, discussed with family, reviewed EMR data (avail), discussed with nursing, discussed with case mgmt, reviewed images, amended to note Attending Assessment/Plan: Patient admitted here for intractable nausea and vomiting. Patient received IVF and nausea meds throught parenteral route. Patient condition dramatically improved with medical management and wishes to leave home. Patient is stable for discharge if he tolearted his lunch today. Patient need to follow up with PCP and his GI o/p in 1-2 weeks of discharge. and nausea meds throught parenteral route. Patient condition dramatically improved with medical management and wishes to leave home. Patient is stable for discharge if he tolearted his lunch today. Patient need to follow up with PCP and his GI o/p in 1-2 weeks of discharge.
[2018-01-01 09:04] LABS: ABSOLUTE BASOPHIL COUNT 0.1 /CUMM (0.0-0.2); ABSOLUTE EOSINOPHIL COUNT 0.2 /CUMM (0.0-0.7); ABSOLUTE GRANULOCYTE CT 9.4 /CUMM (1.4-6.5); ABSOLUTE LYMPH COUNT 4.1 /CUMM (1.2-3.4); ABSOLUTE MONOCYTE COUNT 1.1 /CUMM (0.10-0.60); BASOPHIL % 0.5 % (0.0-2.0); EOSINOPHIL % 1.4 % (0-5); MEAN CORPUSCULAR HGB CONC 33.6 G/DL (33.0-37.0); MEAN CORPUSCULAR VOLUME 86.3 FL (80.0-94.0); MEAN PLATELET VOLUME 9.2 FL (7.4-10.4); PLATELET COUNT 261 /CUMM (130-400); RBC DISTRIBUTION WIDTH 14.4 % (11.5-14.5); RED BLOOD CELL CT 4.52 /CUMM (4.70-6.10); WHITE BLOOD CELL COUNT 14.9 /CUMM (4.8-10.8)
--- NOTE | 2018-01-01 09:49 | Patient Discharge Instructions ---
Discharge Instructions General Discharge Information You were seen/treated for: Cannabis-related intractable nausea and vomiting Watch for these problems: In case of nausea, vomiting, abdominal pain, chest pain, palpitation please go to the nearest emergency room Special Instructions: Please follow-up with your primary care provider within 1-2 weeks of discharge and let them know about your recent admission at [facility]. Diet Continue normal diet: Yes Activity Full Activity/No Limits: No Activity Self Limited: Yes Acute Coronary Syndrome Inclusion Criteria At DC or during hospital stay patient has or had the following: ACS DIAGNOSIS No Discharge Core Measures Meds if any: Prescribed or Continued at Discharge Meds if any: NOT Prescribed or Continued at Discharge Congestive Heart Failure Inclusion Criteria At DC or during hospital stay patient has or had the following: CHF DIAGNOSIS No Discharge Core Measures Meds if any: Prescribed or Continued at Discharge Meds if any: NOT Prescribed or Continued at Discharge Cerebrovascular accident Inclusion Criteria At DC or during hospital stay patient has or had the following: CVA/TIA Diagnosis No Discharge Core Measures Meds if any: Prescribed or Continued at Discharge Meds if any: NOT Prescribed or Continued at Discharge Venous thromboembolism Inclusion Criteria VTE Diagnosis No VTE Type NONE VTE Confirmed by (Test) NONE Discharge Core Measures - Per Current guidelines, there needs to be overlap - treatment for the first 5 days of Warfarin therapy. - If discharged on Warfarin prior to 5 days of - overlap therapy, the patient will need to be - assessed for post discharge needs including - *Post discharge parental anticoagulation - *Warfarin and/or parental anticoagulation education - *Follow up date to check INR post discharge At least 5 days overlap therapy as Inpatient No Meds if any: Prescribed or Continued at Discharge Note: Overlap Therapy is Warfarin and Anticoagulant Meds if any: NOT Prescribed or Continued at Discharge
--- NOTE | 2018-01-01 09:52 | Discharge Summary ---
Visit Information Visit Dates Admission Date: 12/31/17 Discharge Date: 01/01/18 Hospital Course Course Attending Physician: Peyton Marquez MD Primary Care Physician: Carolann DALY,Stalin Lee Hospital Course: This Is a 35-year-old gentleman who presented presented at the emergency room complaining of intractable nausea or vomiting. He has significant past medical history of GERD, self-reported anxiety and self-medication with marijuana, multiple episodes of hospital admission for intractable nausea and vomiting with possible diagnosis of cannabis/serotonin hyperemesis syndrome versus clinical nausea or vomiting. He used to follow with Dr. Posada as an outpatient, had an extensive outpatient GI workup including upper GI EGD and colonoscopy in 2016 which showed GERD, erosive gastritis on EGD and diverticulosis without diverticulitis. He also has repeated insignificant abdominal CT scans and abdominal ultrasound and gastric emptying study with indeterminant decrease of gastroparesis. His nausea and vomiting was controlled on combination of Reglan and Phenergan as an outpatient by Dr. Posada. He was recently admitted to [facility] in November 2017 for the same presentation discharged on 2017. According to patient he did not stop smoking POT. Last time he smoked pot was the day before admission. According to patient his nausea and vomiting has not improved compared to prior hospitalization and he has been homebound due to his symptoms. He reports PO intolerance, vague and diffuse abdominal pain, frequent yellow color vomitus without bloods; no change in his stool characteristics. Denies any fever, chills, symptoms. Currently he is following up with his is/it project manager in [place] and does not want to see any of the [facility] is/it project manager. The remainder of the symptomatology is negative so for generalized weakness and fatigue. Hospital course Patient was admitted for cannabis induced nausea and vomiting. Patient was extensively counseled about the side effects of continued cannabis use. Patient was treated with Zofran, Reglan and IV fluids. Patient tolerated by mouth intake on the day of discharge. Patient requested discharge to home. Patient advised to follow-up with his primary care physician and is/it project manager as outpatient. Complications: None Allergies: Coded Allergies: codeine (Intermediate, RASH 12/27/15) venom-honey bee (BEE VENOM (HONEY BEE)) (Intermediate, SITE WHERE STUNG SWELLS 05/05/16) Disposition Summary Disposition Principal Diagnosis: Cannabis induced nausea and vomiting Additional Diagnosis: Gastroparesis, GERD Discharge Disposition: home or self care Discharge Instructions General Discharge Information Code Status: Full Code Patient's Diet: Regular diet Patient's Activity: As tolerated Follow-Up Instructions/Appts: Follow-up with primary care physician and is/it project manager as outpatient. Medications at Discharge Discharge Medications: Continue taking these medications: Dicyclomine HCl (Dicyclomine HCl) 10 MG CAPSULE 1 Capsule ORAL THREE TIMES DAILY Comments: NOT GIVEN THIS ADMISSION Pantoprazole Sodium (Protonix) 40 MG TABLET.DR 1 Tablet ORAL DAILY Qty = 30 Comments: NOT STARTED IN HOSPITAL PROTONIX GIVEN VIA INTRAVENOUS Ondansetron HCl (Zofran) 4 MG TABLET 1 Tablet ORAL Every 6-8 Hours as Needed as needed for NAUSEA Qty = 10 Comments: Last Taken: 12/31/17 Time: 9:22 AM Metoclopramide HCl (Reglan) 10 MG TABLET 1 Tablet ORAL 4 TIMES A DAY as needed for NAUSEA Qty = 12 Comments: Last Taken: 12/31/17 Time: 9PM Copies To: Carolann DALY,Stalin Lee
== END 2018-01-01 13:01 | DRG 54 ==
LOC: ERH 08:37 → ERHI 17:09 → ENRESERV 18:38 → ENTRNSPT 19:32 → EDTRNSPT 19:39 → EDTRNSPTSTS 19:39 → 2NA 19:49 → CMPTRNSPT 20:06 → 2NA 01-01 07:34 → ENPENDDIS 01-01 12:35 → 2NA 01-01 13:01
PROVIDERS: Physician Assistant; Student in an Organized Health Care Education/Training Program
DX: G43.A1 Cyclical vomiting, in migraine, intractable (principal); K31.84 Gastroparesis; K21.9 Gastro-esophageal reflux disease without esophagitis; Z91.030 Bee allergy status; F12.20 Cannabis dependence, uncomplicated; E86.0 Dehydration; K57.30 Diverticulosis of large intestine without perforation or abscess without bleeding; Z88.6 Allergy status to analgesic agent; F41.9 Anxiety disorder, unspecified; F17.200 Nicotine dependence, unspecified, uncomplicated
CPT/HCPCS: 2NASP; 80307; 81003; 82436; 93005; 93010; 96374; 96375; 96376; J1200; J1650; J2405; J2550; J2765; J3101; J7042

== ENCOUNTER 2018-05-17 10:09 | Inpatient (IN) | payer OTHER ==
[~2018-05-17] VITALS: Ht 180.3 cm; Wt 74.8 kg
[~2018-05-17 10:09] MED LIST changes: +ZOFRAN ODT8 M1 PO
[2018-05-17 11:20] LABS: ABSOLUTE BASOPHIL COUNT 0.1 /CUMM (0.0-0.2); ABSOLUTE EOSINOPHIL COUNT 0.2 /CUMM (0.0-0.7); ABSOLUTE GRANULOCYTE CT 19.4 /CUMM (1.4-6.5); ABSOLUTE LYMPH COUNT 2.9 /CUMM (1.2-3.4); ABSOLUTE MONOCYTE COUNT 1.2 /CUMM (0.10-0.60); BASOPHIL % 0.4 % (0.0-2.0); EOSINOPHIL % 0.7 % (0-5); GRANULOCYTE % 81.8 % (42.2-75.2); HEMATOCRIT 45.1 % (42-52); MEAN CORPUSCULAR HGB 28.7 PG (27.0-31.0); MEAN CORPUSCULAR HGB CONC 33.1 G/DL (33.0-37.0); MEAN CORPUSCULAR VOLUME 86.7 FL (80.0-94.0); PLATELET COUNT 420 /CUMM (130-400); RBC DISTRIBUTION WIDTH 13.9 % (11.5-14.5); RED BLOOD CELL CT 5.21 /CUMM (4.70-6.10); WHITE BLOOD CELL COUNT 23.8 /CUMM (4.8-10.8)
--- NOTE | 2018-05-17 11:55 | ED GENERAL ADULT ---
History of Present Illness General Chief Complaint: Abdominal Pain/Flank Pain Stated Complaint: ABDOMINAL PAIN Source: patient Exam Limitations: no limitations Vital Signs & Intake/Output Vital Signs & Intake/Output Vital Signs Date Time Temp Pulse Resp B/P B/P Pulse O2 O2 Flow FiO2 Mean Ox Delivery Rate 05/17 1500 98.1 57 20 135/89 99 Room Air 05/17 1304 98.0 68 20 126/76 98 Room Air 05/17 1303 97 Room Air 05/17 1033 142/94 05/17 1029 Room Air 05/17 1013 96.9 94 18 95 Room Air Room Air Allergies Coded Allergies: codeine (Intermediate, VOMITING 05/10/18) venom-honey bee (BEE VENOM (HONEY BEE)) (Intermediate, SITE WHERE STUNG SWELLS BAD 05/10/18) Reconcile Medications Metoclopramide HCl (Reglan) 10 MG TABLET 1 TAB PO 4 TIMES/DAY PRN NAUSEA Ondansetron (Zofran Odt) 8 MG TAB.RAPDIS 1 TAB PO AD PRN N/V (Reported) place on top of the tongue where it will dissolve, then swallow Triage Note: TRIAGE: 37 Y/O MALE W PMHX OF GASTROPARESIS AND DIVERTICULITIS PRESENTS HEAVING IN TRIAGE. HAD THE ULTRASOUND YESTERDAY ON KIDNEYS. REFERRAL IS BEING SENT TO AN ONCOLOGIST. Triage Nurses Notes Reviewed? yes HPI: 37-year-old male with a history of gastroparesis and cannabis use presents with nausea and vomiting. He reports chronic issues with this and abdominal pain. He reports that he is having breakthrough symptoms again. He reports his symptoms are relieved by cannabis. The patient also reports that the symptoms are relieved with IV pain medication. He denies fever or chills or diarrhea. Past History Travel History Traveled to [place] past 21 day No Medical History Any Pertinent Medical History? 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 Age 59. FATHER, Age 57. BROTHER, Age 31. SISTER (OBESE). Age 32. Hx Contributory? Yes Review of Systems Review of Systems Constitutional: Denies: chills, diaphoresis, fever. EENTM: Denies: blurred vision, double vision, visual changes. Respiratory: Denies: cough, hemoptysis, orthopnea. Cardiovascular: Denies: chest pain, edema, orthopena. GI: Reports: abdominal pain, nausea, vomiting. Denies: bloating, constipation, diarrhea, bloody stool, changes in stool. Genitourinary: Denies: discharge, dysuria, frequency. Musculoskeletal: Denies: back pain, gout, joint pain. Skin: Denies: change in skin color, change in hair/nails, dryness. Neurological/Psychological: Denies: anxiety, ataxia, cognitive dysfunction. Hematologic/Endocrine: Denies: bruising, bleeding, polyuria. Physical Exam Physical Exam General Appearance: well developed/nourished, mild distress Head: atraumatic, normal appearance Eyes: Bilateral: PERRL, EOMI. Ears, Nose, Throat: normal pharynx, normal ENT inspection Neck: normal inspection, supple Respiratory: normal breath sounds, chest non-tender, no respiratory distress Cardiovascular: regular rate/rhythm Gastrointestinal: normal bowel sounds, soft, non-tender Back: normal inspection, normal range of motion Extremities: normal inspection, normal capillary refill Skin: intact, normal color Comments: The patient is in mild distress because of pain. Complains of pain. Though the abdomen is soft and benign he is distractible. Core Measures ACS in differential dx? No CVA/TIA Diagnosis: No Sepsis Present: No Sepsis Focused Exam Completed? No Progress Differential Diagnoses Previous records revealed that the patient has had similar symptoms in the past. There is no focal tenderness on abdominal exam. The patient will be given IV fluids, Reglan, Haldol and Ativan for cyclical vomiting. Likely induced by cannabis though could be secondary to gastroparesis as well. Regardless the patient be treated aggressively. The patient does not require imaging at this time, the abdomen is soft and benign. He has leukocytosis but that is chronic for him, no acute abnormality that is new for him. Plan of Care: Orders Procedure Date/time Status Nothing by Mouth 05/18 B Active Patient Data 05/17 1644 Active ED Holding Orders 05/17 1608 Active Admit to inpatient 05/17 1608 Active Code Status 05/17 1608 Active URINE DRUGS OF ABUSE 05/17 1103 Active URINALYSIS 05/17 1041 Active LIPASE 05/17 1041 Complete COMPREHENSIVE METABOLIC PANEL 05/17 1041 Complete CBC WITHOUT DIFFERENTIAL 05/17 1041 Complete Intake & Output 05/17 1011 Active Current Medications Sig/Jose J Start time Last Medication Dose Stop Time Status Admin Sodium Chloride 1,000 ML Q6H 05/17 1615 AC (Normal Saline 0.9%) Laboratory Tests 05/17/18 1100: Anion Gap 18 H, Estimated GFR > 60, BUN/Creatinine Ratio 13.3, Glucose 110 H, Calcium 11.0 H, Total Bilirubin 0.4, AST 21, ALT 31, Alkaline Phosphatase 113, Total Protein 8.5 H, Albumin 5.4 H, Globulin 3.1, Albumin/Globulin Ratio 1.7, Lipase 428 H, CBC w Diff MAN DIFF ORDERED, RBC 5.21, MCV 86.7, MCH 28.7, MCHC 33.1, RDW 13.9, MPV 9.0, Gran % 81.8 H, Lymphocytes % 12.0 L, Monocytes % 5.1, Eosinophils % 0.7, Basophils % 0.4, Absolute Granulocytes 19.4 H, Segmented Neutrophils 72, Band Neutrophils 5, Absolute Lymphocytes 2.9, Lymphocytes 20 L, Absolute Monocytes 1.2 H, Eosinophils 1, Absolute Eosinophils 0.2, Basophils 2, Absolute Basophils 0.1, Platelet Estimate ADEQUATE, Normocytic RBCs VERIFIED, Normochromic RBCs VERIFIED Initial ED EKG: none Comments: 1338 patient feeling better. We will give a p.o. trial. Abdomen remains soft and benign. 1541 patient continues to have vomiting in spite of treatment. We will have to admit him for failed care of nausea and vomiting. 1648 the patient will be admitted for further evaluation and workup. Unfortunately he remains p.o. intolerance so we are unable to discharge him home. Abdominal exam remains unchanged, no indication for imaging at this time. Departure Departure Time of Disposition: 1648 Disposition: STILL A PATIENT Condition: Stable Clinical Impression Primary Impression: Gastroparesis Referrals: Unknown (PCP/Family) Departure Forms: Customer Survey General Discharge Information Critical Care Note Critical Care Note Critical Care Time: non-applicable
--- NOTE | 2018-05-17 16:27 | History & Physical ---
Vikas TIWARI,[facility] 05/17/18 1627: General Information and HPI MD Statement: I have seen and personally examined REJI OLVERA and documented this H&P. The patient is a 37 year old M who presented with a patient stated chief complaint of [intractable nausea and vomiting]. Source of Information: patient, old records Exam Limitations: no limitations History of Present Illness: Patient is a 37-year-old male with past medical history significant for cyclic intractable episodes of nausea and vomiting status post multiple admissions ( November AND December of 2017), borderline gastroparesis, self reported anxiety, marijuana smoking. Patient presented to ED with chief complaint of intractable nausea and vomiting since last Thursday 05/10. Patient presented to ED last Saturday for complaint of nausea and vomiting and was discharged home. Patient reported vomiting up to 12-15 times today, denied hematemesis however reported some blood streaks, vomits is food content, yellow and sometimes bile. Patient also reported diffuse abdominal pain, diarrhea however no melena or hematochezia. Patient used to smoke marijuana daily, last time was yesterday. He follow up with GI specialist at [facility]. Patient also does vibe smoking daily, denied any illicit drugs. Patient had extensive outpatient GI workup including EGD and colonoscopy in 2016 that revealed GERD, erosive gastritis on EGD and diverticulosis without diverticulitis. Multiple abdominal CAT scans and ultrasound did not reveal any pathology. Allergies/Medications Allergies: Coded Allergies: codeine (Intermediate, VOMITING 05/10/18) venom-honey bee (BEE VENOM (HONEY BEE)) (Intermediate, SITE WHERE STUNG SWELLS BAD 05/10/18) Home Med list Metoclopramide HCl (Reglan) 10 MG TABLET 1 TAB PO 4 TIMES/DAY PRN NAUSEA Ondansetron (Zofran Odt) 8 MG TAB.RAPDIS 1 TAB PO AD PRN N/V (Reported) place on top of the tongue where it will dissolve, then swallow Past History Travel History Traveled to [place] past 21 day No Medical History Neurological: NONE EENT: NONE Cardiovascular: NONE Respiratory: NONE Gastrointestinal: GERD, GASTROPARESIS (borderline GES at 4 hrs); DIVERTICULOSIS COLI Hepatic: NONE Renal: NONE Musculoskeletal: NONE Psychiatric: anxiety Endocrine: NONE Blood Disorders: NONE Cancer(s): NONE 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 Age 59. FATHER, Age 57. BROTHER, Age 31. SISTER (OBESE). Age 32. Psychosocial History Who Do You Live With? child, fiancee Services at Home: None Primary Language: Arabic ETOH Use: occasional use Illicit Drug Use: marijuana Living Will? no Power of Gear Design Engineer/HCP? no Functional Ability ADLs Independent: dressing, eating, toileting, bathing. Ambulation: independent IADLs Independent: shopping, housework, finances, food prep, telephone, transportation , medication admin. Review of Systems Review of Systems Constitutional: Reports: see HPI, chills. Denies: fever. EENTM: Denies: blurred vision, double vision. Cardiovascular: Denies: chest pain, palpitations, syncope. Respiratory: Denies: cough, short of breath. GI: Reports: abdominal pain, diarrhea, nausea. Denies: constipation, melena. Genitourinary: Denies: dysuria, frequency. Musculoskeletal: Denies: joint pain, joint swelling. Skin: Denies: cysts, rash. Neurological/Psychological: Denies: headache. Hematologic/Endocrine: Denies: bruising, bleeding. Exam & Diagnostic Data Last 24 Hrs of Vital Signs/I&O Vital Signs Date Time Temp Pulse Resp B/P B/P Pulse O2 O2 Flow FiO2 Mean Ox Delivery Rate 05/17 1500 98.1 57 20 135/89 99 Room Air 05/17 1304 98.0 68 20 126/76 98 Room Air 05/17 1303 97 Room Air 05/17 1033 142/94 05/17 1029 Room Air 05/17 1013 96.9 94 18 95 Room Air Room Air Intake & Output 05/17 1600 05/17 0800 05/17 0000 Intake Total 1000 Output Total 50 Balance 950 Intake, IV 1000 Output, 50 Emesis Patient 74.843 kg Weight Weight Reported by Patient Measurement Method Physical Exam General Appearance Alert, Oriented X3, Cooperative, No Acute Distress Skin No Rashes, No Breakdown, No Significant Lesion Skin Temp/Moisture Exam: Warm/Dry HEENT Atraumatic, PERRLA, EOMI, Mucous Membr. moist/pink Neck Supple, No JVD Cardiovascular Regular Rate, Normal S1, Normal S2, No Murmurs Lungs Clear to Auscultation, Normal Air Movement Abdomen Normal Bowel Sounds, Soft, No Tenderness Neurological Normal Speech, Strength at 5/5 X4 Ext, Normal Tone, Sensation Intact, Cranial Nerves 3-12 NL, Reflexes 2+ Extremities No Clubbing, No Cyanosis, No Edema, Normal Pulses Assessment/Plan Assessment: Patient is a 37-year-old male with past medical history significant for cyclic intractable episodes of nausea and vomiting status post multiple admissions ( November AND December of 2017), borderline gastroparesis, self reported anxiety, marijuana smoking. Patient presented to ED with chief complaint of intractable nausea and vomiting since last Thursday 05/10. Patient had multiple admissions for similar complaints, was treated with Reglan. Patient did not have any imaging evidence of pathology that can explain these episodes. Patient was counseled before regarding possibility of cannabis hyperemesis syndrome however he insists on smoking marijuana on a regular basis. Admission vital signs temperature 96.9, pulse 94 regular, blood pressure 142/94, saturating 95% Pertinent labs from admission white blood cell count 23.8 with no bands or left shift, H&H 14.9/45.1, platelet 420, sodium 145, potassium 4, anion gap of 18, calcium 11 Problem list Intractable nausea and vomiting Dehydration Leukocytosis and thrombocytosis mostly because of dehydration Anion gap metabolic acidosis mostly due to starvation ketosis Cannabis dependence Plan Observe in general medical floor Vitals every shift IV fluid D5 half normal saline running at 75 cc/h Daily diet Guaiac stool PPI 40 mg IV daily Antiemetic Reglan and Phenergan EKG for baseline QTc interval Obtain drug toxicology Obtain UA Repeat CBCs and BEP in a.m. and monitor Acetaminophen for pain Ativan as needed at bedtime for agitation DVT prophylaxis Lovenox Code full As Ranked By This Provider Problem List: 1. Cannabis dependence 2. Vomiting 3. Abdominal pain 4. Leukocytosis 5. Nausea vomiting and diarrhea Core Measures/Misc (07/07) Acute Coronary Syndrome ACS Diagnosis: No Congestive Heart Failure Congestive Heart Failure Diagnosis No Cerebrovascular Accident CVA/TIA Diagnosis: No VTE (View Protocol) VTE Risk Factors Acute Medical Illness No Mechanical VTE Prophylaxis d/t N/A MechProphylax Ordered No VTE Pharm Prophylaxis d/t NA PharmProphylax ordered Sepsis (View protocol) Sepsis Present: No If YES complete Sepsis Event Note If YES complete Sepsis Event Note Observation Initial Note - I have personally examined SUPPLE,CHRISTOPHER on 05/17/18 at 1734. The disposition of REJI OLVERA is uncertain at this time and before a determination can be made, he requires a period of observation for the following reasons [intractable nausea and vomiting] JimmyPeyton 05/17/18 3104: Core Measures/Misc (07/07) Sepsis (View protocol) If YES complete Sepsis Event Note If YES complete Sepsis Event Note Attending MD Review Statement Attending Statement Attending MD Statement: examined this patient, discuss w/resident/PA/WILDLIFE TECHNICIAN, agreed w/resident/PA/WILDLIFE TECHNICIAN, discussed with family, reviewed EMR data (avail), discussed with nursing, discussed with case mgmt, reviewed images, amended to note Attending Assessment/Plan: 37 o/m with pmh of cyclical vomitng syndrome comes with intractable nasuea and dehydration and leukocytosis with simialr presentation. Patient on observation status requiring IVF and prn nasuea meds iv. GI referral if no improvement. Abstinence from marijuana. gi/dvt prophylaxis.
--- NOTE | 2018-05-17 17:59 | Event Note ---
Event Note Event Note: Lactic acid was added on to blood sample drawn at 11 am. 3.5 Patient has been receiving fluid since 11 am Will continue fluid and repeat Lactic acid NOW.
[2018-05-17 18:53] VITALS: BP 104/44
[2018-05-17 22:40] VITALS: BP 106/70
[2018-05-18 07:58] VITALS: BP 109/70
--- NOTE | 2018-05-18 08:05 | PN- Housestaff ---
Kumar Tran 05/18/18 0805: Subjective Follow-up For: Intractable nausea and vomiting Complaints: no complaints Subjective: Patient seen and examined at the bedside. Patient states he feels much better, having received fluids overnight. Per patient, ready to return home. Review of Systems Constitutional: Reports: no symptoms, see HPI. Gastrointestinal: Reports: no symptoms. Objective Last 24 Hrs of Vital Signs/I&O Vital Signs Date Time Temp Pulse Resp B/P B/P Pulse O2 O2 Flow FiO2 Mean Ox Delivery Rate 05/18 0758 99.7 68 20 109/70 97 05/17 2240 98.4 81 17 106/70 81 Room Air 05/17 1853 98.2 84 18 104/44 97 Room Air 05/17 1731 97.6 74 18 121/79 97 Room Air 05/17 1500 98.1 57 20 135/89 99 Room Air Intake & Output 05/18 1600 05/18 0800 05/18 0000 Intake Total 600 565 Output Total 800 Balance -200 565 Intake, IV 600 325 Intake, Oral 240 Output, Urine 800 Patient 165 lb Weight Weight Reported by Patient Measurement Method Physical Exam General Appearance: Alert, Oriented X3, Cooperative, No Acute Distress Skin: No Rashes, No Breakdown, No Significant Lesion Skin Temp/Moisture Exam: Warm/Dry HEENT: Atraumatic, PERRLA, EOMI, Mucous Membr. moist/pink Neck: Supple, No JVD Lymphatic: Axillary nl, Cervical nl Cardiovascular: Regular Rate, Normal S1, Normal S2, No Murmurs, Gallops, Rubs Lungs: Clear to Auscultation, Normal Air Movement Abdomen: Soft, No Tenderness, No Hepatospenomegaly Neurological: Normal Gait, Normal Speech, Strength at 5/5 X4 Ext, Normal Tone, Sensation Intact, Cranial Nerves 3-12 NL Extremities: No Clubbing, No Cyanosis, No Edema, Normal Pulses, No Tenderness/ Swelling Vascular: Normal Pulses, Pulses Symmetrical Current Medications: Current Medications Sig/Jose J Start time Last Medication Dose Route Stop Time Status Admin Acetaminophen 650 MG Q6P PRN 05/17 1700 DCD PO Acetaminophen 1,000 MG Q6P PRN 05/17 1700 DCD 05/17 IV 2036 Dextrose/Sodium 1,000 ML .[id number] 05/17 170 DCD 05/18 Chloride IV 0900 Enoxaparin Sodium 0 .STK-MED ONE 05/17 1742 DC SC Enoxaparin Sodium 40 MG DAILY 05/17 1659 DCD 05/17 SC 1743 Lorazepam 2 MG AT BEDTIME PRN 05/17 1715 DCD 05/17 IV 2035 Lorazepam 0 .STK-MED ONE 05/17 1607 DC .ROUTE Lorazepam 1 MG ONCE ONE 05/17 1545 DC 05/17 IV 05/17 1546 1615 Metoclopramide HCl 10 MG Q6P PRN 05/17 1715 DCD IV Pantoprazole Sodium 0 .STK-MED ONE 05/17 1742 DC IV Pantoprazole Sodium 40 MG DAILY 05/17 1704 DCD 05/18 IV 0821 Promethazine HCl 25 MG Q4P PRN 05/17 1715 DCD IV 05/24 1714 Sodium Chloride 1,000 ML Q6H 05/17 1615 DC 05/17 IV 1640 Last 24 Hrs of Lab/Tai Results Last 24 Hrs of Labs/Mics: Laboratory Tests 05/18/18 0644: Anion Gap 15, Estimated GFR > 60, BUN/Creatinine Ratio 12.9, CBC w Diff NO MAN DIFF REQ, RBC 4.36 L, MCV 86.0, MCH 29.6, MCHC 34.4, RDW 14.2, MPV 9.4, Gran % 63.4, Lymphocytes % 27.5, Monocytes % 7.2, Eosinophils % 1.4, Basophils % 0.5, Absolute Granulocytes 9.4 H, Absolute Lymphocytes 4.1 H, Absolute Monocytes 1.1 H, Absolute Eosinophils 0.2, Absolute Basophils 0.1 05/17/18 1845: Lactic Acid 0.9 Assessment/Plan Assessment: Patient is a 37-year-old male with past medical history significant for cyclic intractable episodes of nausea and vomiting status post multiple admissions ( November AND December of 2017), borderline gastroparesis, self reported anxiety, marijuana smoking. Patient presented to ED with chief complaint of intractable nausea and vomiting since last Thursday 05/10. Patient had multiple admissions for similar complaints, was treated with Reglan. Patient did not have any imaging evidence of pathology that can explain these episodes. Patient was counseled before regarding possibility of cannabis hyperemesis syndrome however he insists on smoking marijuana on a regular basis. Admission vital signs temperature 96.9, pulse 94 regular, blood pressure 142/94, saturating 95% Pertinent labs from admission white blood cell count 23.8 with no bands or left shift, H&H 14.9/45.1, platelet 420, sodium 145, potassium 4, anion gap of 18, calcium 11 Problem list Intractable nausea and vomiting Dehydration Leukocytosis and thrombocytosis mostly due to dehydration Anion gap metabolic acidosis mostly due to starvation ketosis Cannabis dependence Plan Observe in general medical floor Vitals every shift IV fluid D5 half normal saline running at 75 cc/h Daily diet - clear liquids most recently Guaiac stool PPI 40 mg IV daily Antiemetic Reglan and Phenergan EKG for baseline QTc interval Obtain drug toxicology Obtain UA Repeat CBCs and BEP in a.m. and monitor Acetaminophen for pain Ativan as needed at bedtime for agitation DVT prophylaxis Lovenox Code full Discharge on home medications without alterations Problem List: 1. Cyclical vomiting, intractable 2. Cannabis abuse 3. Leukocytosis 4. Nausea and vomiting in adult patient Pain Ratin Pain Location: none Pain Goal: Remain pain free Pain Plan: none in place currently Tomorrow's Labs & Rationales: none, discharged Jimmy,Peyton 05/18/18 1323: Attending MD Review Statement Attending Statement Attending MD Statement: examined this patient, discuss w/resident/PA/MEDICAL STAFF SPECIALIST, agreed w/resident/PA/MEDICAL STAFF SPECIALIST, discussed with family, reviewed EMR data (avail), discussed with nursing, discussed with case mgmt, reviewed images, amended to note Attending Assessment/Plan: 37 o/m with pmh of cyclical vomitng syndrome comes with intractable nasuea and dehydration and leukocytosis with simialr presentation. Patient on observation status requiring IVF and prn nasuea meds iv. Pateint clinical condition improved and he is being discharged on PO meds. Abstinence from marijuana. Follow up with PCP at discharge
[2018-05-18 08:49] LABS: ABSOLUTE BASOPHIL COUNT 0.1 /CUMM (0.0-0.2); ABSOLUTE EOSINOPHIL COUNT 0.2 /CUMM (0.0-0.7); ABSOLUTE GRANULOCYTE CT 9.4 /CUMM (1.4-6.5); ABSOLUTE LYMPH COUNT 4.1 /CUMM (1.2-3.4); ABSOLUTE MONOCYTE COUNT 1.1 /CUMM (0.10-0.60); BASOPHIL % 0.5 % (0.0-2.0); EOSINOPHIL % 1.4 % (0-5); GRANULOCYTE % 63.4 % (42.2-75.2); MEAN CORPUSCULAR HGB 29.6 PG (27.0-31.0); MEAN CORPUSCULAR HGB CONC 34.4 G/DL (33.0-37.0); MEAN PLATELET VOLUME 9.4 FL (7.4-10.4); PLATELET COUNT 324 /CUMM (130-400); RBC DISTRIBUTION WIDTH 14.2 % (11.5-14.5); RED BLOOD CELL CT 4.36 /CUMM (4.70-6.10); WHITE BLOOD CELL COUNT 14.8 /CUMM (4.8-10.8)
[2018-05-18 09:14] LABS: HEMATOCRIT 37.5 % (42-52)
--- NOTE | 2018-05-18 10:49 | Patient Discharge Instructions ---
Discharge Instructions General Discharge Information Special Instructions: - Please follow up with your primary care physician within 1-2 weeks of discharge. Inform your primary care physician of this admission to [facility]. - Continue your current medications per discharge instructions. - Please watch for these problems: Fever, Chills, Nausea, Vomiting, Shortness of Breath, Productive Cough, Chest Pain/Discomfort, Abdominal Pain, Active Bleeding or Bloody urine/stool. Diet Continue normal diet: Yes Activity Full Activity/No Limits: Yes Acute Coronary Syndrome Inclusion Criteria At DC or during hospital stay patient has or had the following: ACS DIAGNOSIS No Discharge Core Measures Meds if any: Prescribed or Continued at Discharge Meds if any: NOT Prescribed or Continued at Discharge Congestive Heart Failure Inclusion Criteria At DC or during hospital stay patient has or had the following: CHF DIAGNOSIS No Discharge Core Measures Meds if any: Prescribed or Continued at Discharge Meds if any: NOT Prescribed or Continued at Discharge Cerebrovascular accident Inclusion Criteria At DC or during hospital stay patient has or had the following: CVA/TIA Diagnosis No Discharge Core Measures Meds if any: Prescribed or Continued at Discharge Meds if any: NOT Prescribed or Continued at Discharge Venous thromboembolism Inclusion Criteria VTE Diagnosis No VTE Type NONE VTE Confirmed by (Test) NONE Discharge Core Measures - Per Current guidelines, there needs to be overlap - treatment for the first 5 days of Warfarin therapy. - If discharged on Warfarin prior to 5 days of - overlap therapy, the patient will need to be - assessed for post discharge needs including - *Post discharge parental anticoagulation - *Warfarin and/or parental anticoagulation education - *Follow up date to check INR post discharge At least 5 days overlap therapy as Inpatient No Meds if any: Prescribed or Continued at Discharge Note: Overlap Therapy is Warfarin and Anticoagulant Meds if any: NOT Prescribed or Continued at Discharge
--- NOTE | 2018-05-18 11:23 | Discharge Summary ---
Visit Information Visit Dates Admission Date: 05/17/18 Discharge Date: 05/18/18 Hospital Course Course Attending Physician: Peyton Marquez MD Primary Care Physician: Unknown Hospital Course: Patient is a 37-year-old male with past medical history significant for cyclic intractable episodes of nausea and vomiting status post multiple admissions ( November AND December of 2017), borderline gastroparesis, self reported anxiety, marijuana smoking. Patient presented to ED with chief complaint of intractable nausea and vomiting since last Thursday 05/10. Patient presented to ED last Saturday for complaint of nausea and vomiting and was discharged home. Patient reported vomiting up to 12-15 times today, denied hematemesis however reported some blood streaks, vomits is food content, yellow and sometimes bile. Patient also reported diffuse abdominal pain, diarrhea however no melena or hematochezia. Patient used to smoke marijuana daily, last time was yesterday. He follow up with GI specialist at [facility]. Patient also does vibe smoking daily, denied any illicit drugs. Patient had extensive outpatient GI workup including EGD and colonoscopy in 2015 that revealed GERD, erosive gastritis on EGD and diverticulosis without diverticulitis. Multiple abdominal CAT scans and ultrasound did not reveal any pathology. After being in observation for cyclical vomiting syndrome, patient improved rapidly with administration of fluids and pain meds. Per patient's request on the following day, patient returned home self-care. Vitals on admission: Temp 96.9, pulse 94, respirations 18, BP 142/94, 95% on room air General Appearance Alert, Oriented X3, Cooperative, No Acute Distress Skin No Rashes, No Breakdown, No Significant Lesion Skin Temp/Moisture Exam: Warm/Dry HEENT Atraumatic, PERRLA, EOMI, Mucous Membr. moist/pink Neck Supple, No JVD Cardiovascular Regular Rate, Normal S1, Normal S2, No Murmurs Lungs Clear to Auscultation, Normal Air Movement Abdomen Normal Bowel Sounds, Soft, No Tenderness Neurological Normal Speech, Strength at 5/5 X4 Ext, Normal Tone, Sensation Intact, Cranial Nerves 3-12 NL, Reflexes 2+ Extremities No Clubbing, No Cyanosis, No Edema, Normal Pulses Labs on admission WBC 23.8, otherwise hematology unremarkable Lipase 428, otherwise chemistry unremarkable Allergies: Coded Allergies: codeine (Intermediate, VOMITING 05/10/18) venom-honey bee (BEE VENOM (HONEY BEE)) (Intermediate, SITE WHERE STUNG SWELLS BAD 05/10/18) Disposition Summary Disposition Principal Diagnosis: Cyclical vomiting syndrome Additional Diagnosis: Cannabis use Discharge Disposition: home or self care Discharge Instructions General Discharge Information Code Status: Full Code Patient's Diet: Full as tolerated Patient's Activity: Regular as tolerated Follow-Up Instructions/Appts: - Please follow up with your primary care physician within 1-2 weeks of discharge. Inform your primary care physician of this admission to [facility]. - Continue your current medications per discharge instructions. - Please watch for these problems: Fever, Chills, Nausea, Vomiting, Shortness of Breath, Productive Cough, Chest Pain/Discomfort, Abdominal Pain, Active Bleeding or Bloody urine/stool. Medications at Discharge Discharge Medications: Continue taking these medications: Metoclopramide HCl (Reglan) 10 MG TABLET 1 Tablet ORAL 4 TIMES A DAY as needed for NAUSEA Qty = 12 Comments: NOT GIVEN Ondansetron (Zofran Odt) 8 MG TAB.RAPDIS 1 Tablet ORAL As Directed as needed for N/V Instructions: place on top of the tongue where it will dissolve, then swallow Comments: NOT GIVEN Copies To: Unknown
== END 2018-05-18 12:04 | DRG 54 ==
LOC: ERH 10:09 → ERHI 16:08 → ENRESERV 16:37 → ENTRNSPT 17:55 → EDTRNSPTSTS 18:09 → 2NB 18:31 → CMPTRNSPT 18:41 → ENPENDDIS 05-18 11:24 → 2NB 05-18 12:04
PROVIDERS: Physician Assistant Medical; Student in an Organized Health Care Education/Training Program
DX: G43.A1 Cyclical vomiting, in migraine, intractable (principal); D72.829 Elevated white blood cell count, unspecified; Z88.5 Allergy status to narcotic agent; K21.9 Gastro-esophageal reflux disease without esophagitis; F41.9 Anxiety disorder, unspecified; E86.0 Dehydration; E87.2 Acidosis; E88.89 Other specified metabolic disorders; D47.3 Essential (hemorrhagic) thrombocythemia; F12.20 Cannabis dependence, uncomplicated
CPT/HCPCS: 2NSBP; 36592; 80307; 82436; 93005; 93010; 96361; 96372; 96374; 96375; J0131; J1630; J1650; J2405; J2550; J2765; J7042

== ENCOUNTER 2018-05-31 09:21 | Emergency (ER) | payer OTHER ==
[~2018-05-31] VITALS: Ht 177.8 cm; Wt 76.2 kg
--- NOTE | 2018-05-31 10:11 | ED GI/GU/ABDOMINAL COMPLAINT ---
History of Present Illness General Chief Complaint: Abdominal Pain/Flank Pain Stated Complaint: ABD PAIN, X 4 HRS Source: patient, family, old records Exam Limitations: no limitations Vital Signs & Intake/Output Vital Signs & Intake/Output Vital Signs Date Time Temp Pulse Resp B/P B/P Pulse O2 O2 Flow FiO2 Mean Ox Delivery Rate 05/31 1531 98.4 65 20 118/70 98 Room Air 05/31 1205 98.6 80 20 140/85 99 Room Air 05/31 1024 96 Room Air 05/31 0932 97.5 80 20 158/75 98 Room Air Allergies Coded Allergies: codeine (Intermediate, VOMITING 05/10/18) venom-honey bee (BEE VENOM (HONEY BEE)) (Intermediate, SITE WHERE STUNG SWELLS BAD 05/10/18) Reconcile Medications Metoclopramide HCl (Reglan) 10 MG TABLET 1 TAB PO 4 TIMES/DAY PRN NAUSEA Ondansetron (Zofran Odt) 8 MG TAB.RAPDIS 1 TAB PO AD PRN N/V (Reported) place on top of the tongue where it will dissolve, then swallow Triage Note: C/O VOMITING SINCE 529 WITH LEFT FLANK PAIN. Triage Nurses Notes Reviewed? yes Onset: Abrupt Duration: weeks, acute on chronic issue Timing: recent history Quality/Severity: moderate Location: generalized abdomen Radiation: no radiation No Modifying Factors: none HPI: 37-year-old male comes into the emergency room for further evaluation of abdominal pain and vomiting. Patient has a history of gastroparesis. Patient was recently discharged here from the hospital. He is due to see a surgeon at the end of June for possible gastric pacemaker. He has had multiple evaluations for this in the past. He has seen gastric urology and had upper and lower endoscopy as well as CAT scans. Comes in with abdominal pain and vomiting. Going on worse again for last 4 days. Patient feels very depressed and anxious and he is requesting to speak with crisis. Denies any suicidal or homicidal ideation. (Emiliano Emdonds) Past History Travel History Traveled to [place] past 21 day No Medical History Any Pertinent Medical History? 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 Age 59. FATHER, Age 57. BROTHER, Age 31. SISTER (OBESE). Age 32. Hx Contributory? No (Emiliano Edmonds) Review of Systems Review of Systems Constitutional: Reports: no symptoms. EENTM: Reports: no symptoms. Respiratory: Reports: no symptoms. Cardiovascular: Reports: no symptoms. GI: Reports: see HPI. Genitourinary: Reports: no symptoms. Musculoskeletal: Reports: no symptoms. Skin: Reports: no symptoms. Neurological/Psychological: Reports: no symptoms. Hematologic/Endocrine: Reports: no symptoms. Immunologic/Allergic: Reports: no symptoms. All Other Systems: Reviewed and Negative (Emiliano Edmonds) Physical Exam Physical Exam General Appearance: well developed/nourished, alert, awake, moderate distress Head: atraumatic Eyes: Bilateral: normal appearance. Ears, Nose, Throat, Mouth: moist mucous membrane Neck: normal inspection Respiratory: no respiratory distress Gastrointestinal: soft, tenderness Back: normal inspection Extremities: normal range of motion Neurologic/Psych: awake, alert, oriented x 3 Skin: intact, normal color Core Measures ACS in differential dx? No Sepsis Present: No Sepsis Focused Exam Completed? No (Emiliano Edmonds) Progress Differential Diagnosis: gastritis, pancreatitis, SBO, gastroparesis Plan of Care: Orders Procedure Date/time Status URINE DRUGS OF ABUSE 05/31 1010 Complete LIPASE 05/31 1010 Complete ETHANOL 05/31 1010 Complete COMPREHENSIVE METABOLIC PANEL 05/31 1010 Complete CBC WITHOUT DIFFERENTIAL 05/31 1010 Complete Laboratory Tests 05/31/18 1215: Urine Opiates Screen < 100, Methadone Screen 46, Barbiturate Screen < 60, Ur Phencyclidine Scrn < 6.00, Amphetamines Screen < 100, U Benzodiazepines Scrn < 85, Urine Cocaine Screen < 50, Urine Cannabis Screen > 80.00 H 05/31/18 1014: Anion Gap 14, Estimated GFR > 60, BUN/Creatinine Ratio 13.3, Glucose 108 H, Calcium 10.3 H, Total Bilirubin 0.5, AST 23, ALT 32, Alkaline Phosphatase 121, Total Protein 7.6, Albumin 5.0, Globulin 2.6, Albumin/Globulin Ratio 1.9, Lipase 122, CBC w Diff MAN DIFF ORDERED, RBC 4.79, MCV 86.9, MCH 29.6, MCHC 34.0, RDW 14.0, MPV 8.7, Gran % 81.4 H, Lymphocytes % 13.0 L, Monocytes % 4.5, Eosinophils % 0.8, Basophils % 0.3, Absolute Granulocytes 14.3 H, Absolute Lymphocytes 2.3, Absolute Monocytes 0.8 H, Absolute Eosinophils 0.1, Absolute Basophils 0, Normocytic RBCs VERIFIED, Normochromic RBCs VERIFIED, Serum Alcohol < 10.0 Initial ED EKG: none Comments: 05/31/2018 4:40:22 PM Patient was kept here for 7 hours in the emergency room department. He finally feels better after IV medications and IV fluids. He spoke with the air conditioning coil assembler who feels the patient is stable for discharge. He has denied any suicidal or homicidal ideation. Results discussed with the patient. Baseline white blood cell count is high. Many CAT scans in the past. Do not feel CT scan is necessary. Symptoms consistent with gastroparesis previously. (Emiliano Edmonds) Departure Departure Disposition: HOME OR SELF CARE Condition: Stable Clinical Impression Primary Impression: Gastroparesis Referrals: Unknown (PCP/Family) Additional Instructions: Take your medications at home as prescribed. Return if any concerns worsening symptoms. Please go over all results of today's visit with your primary care doctor. Contact your primary care doctor to let them know you were here in the emergency room. There may be nonspecific findings which may not be related to your visit today here in the emergency room but may require further evaluation and chronic monitoring by your primary care doctor. If you had a laceration today the chance of foreign body always remains. You should follow-up with your primary care doctor for recheck in 3-5 days for a wound check. If you had an x-ray done there is a chance that a fracture could have been missed on initial read and you should follow-up with your primary care doctor for repeat x-rays if symptoms persist. If your blood pressure was elevated here in the emergency room please have rechecked by [facility] primary care doctor within the next 48. If you were prescribed a narcotic here in the emergency room or any type of controlled substances you're not allowed to drive while taking this medication or operate any type of heavy machinery. Narcotics can make you feel lightheaded dizziness nausea and can cause constipation. You may need to apple picker a stool softener. Thank you for choosing [facility] emergency room. Please return to the emergency room immediately if you have any other concerns worsening of symptoms. Departure Forms: Customer Survey General Discharge Information (Emiliano Edmonds) PA/CLOTHING SUPERVISOR Co-Sign Statement Statement: ED Attending supervision documentation- [] I saw and evaluated the patient. I have also reviewed all the pertinent lab results and diagnostic results. I agree with the findings and the plan of care as documented in the PA's/CLOTHING SUPERVISOR's documentation. [X] I have reviewed the ED Record and agree with the PA's/CLOTHING SUPERVISOR's documentation. [] Additions or exceptions (if any) to the PAs/CLOTHING SUPERVISOR's note and plan are summarized below: [] (Luigi TIWARI,Bro Verduzco)
[2018-05-31 10:28] LABS: ABSOLUTE BASOPHIL COUNT 0 /CUMM (0.0-0.2); ABSOLUTE EOSINOPHIL COUNT 0.1 /CUMM (0.0-0.7); ABSOLUTE GRANULOCYTE CT 14.3 /CUMM (1.4-6.5); ABSOLUTE LYMPH COUNT 2.3 /CUMM (1.2-3.4); ABSOLUTE MONOCYTE COUNT 0.8 /CUMM (0.10-0.60); BASOPHIL % 0.3 % (0.0-2.0); EOSINOPHIL % 0.8 % (0-5); GRANULOCYTE % 81.4 % (42.2-75.2); HEMATOCRIT 41.7 % (42-52); MEAN CORPUSCULAR HGB 29.6 PG (27.0-31.0); MEAN CORPUSCULAR VOLUME 86.9 FL (80.0-94.0); MEAN PLATELET VOLUME 8.7 FL (7.4-10.4); PLATELET COUNT 363 /CUMM (130-400); RED BLOOD CELL CT 4.79 /CUMM (4.70-6.10); WHITE BLOOD CELL COUNT 17.6 /CUMM (4.8-10.8)
[2018-05-31 15:31] VITALS: BP 118/70
--- NOTE | 2018-05-31 15:39 | ED PSY CRISIS COLLATERAL NOTE ---
Collateral Note Collateral Note Family/Inform/Heather Contacts: Pt requested to speak with crisis for resources for outpt therapy. Pt denies any SI or hx of such. Pt reports that he has a hx of anxiety and used to go to [facility] "many years ago" for out pt tx. Pt is not currently in tx or on any psych meds. pt admits that he self medicates with daily marijuana use and is in the process of getting his medical marijuana permit. Pt expressed that he asked to speak to crisis for resources because he would like to go to individual therapy to help cope with his stomach problems. Pt explains that he vomits every day and it is very painful. Pt was provided with a list our out pt referrals.
== END 2018-05-31 17:01 ==
LOC: ERH 09:21
PROVIDERS: Physician Assistant Medical
DX: K31.84 Gastroparesis (principal)
CPT/HCPCS: 80307; 96374; 96375; G0480; J1885; J2405; J2550; J2765